=== PATIENT | female | born 1960 | race Caucasian/White ===

== ENCOUNTER 2024-06-11 09:56 | Emergency (ER) | payer MEDICARE, MEDICAID, SELFPAY ==
[2024-06-11 10:18] VITALS: BP 190/97; PULSE 77; RESP 14; TEMP 36.8; O2SAT 100
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
[2024-06-11 10:32] VITALS: BP 190/97; PULSE 77; RESP 14; TEMP 36.8; O2SAT 100
== END 2024-06-11 10:42 | disposition home or self-care (01) ==
PROVIDERS: Emergency Provider Nurse Practitioner Family
DX: L03.114 Cellulitis of left upper limb (principal); I10 Essential (primary) hypertension; Z86.73 Personal history of transient ischemic attack (TIA), and cerebral infarction without residual deficits
CPT/HCPCS: 99213; G0463

== ENCOUNTER 2025-04-15 10:04 | Emergency (ER) | payer MEDICARE, MEDICAID, SELFPAY ==
--- OUTSIDE RECORDS SUMMARY | 2025-04-15 10:09 | XMS_ITS | Encounter Summary ---
Author Organization [facility] Address [address] [facility] [place] [address] Phone Care Team Providers Care Rating Officer Name Role Phone Alejandro Edouard MD Primary Care Provider [phone] Tasha Aranda APRN, STRAIGHTENING PRESS OPERATOR HELPER Unavailable [phone] Aide Andre DO Primary Care Provider [phone] Tasha Aranda APRN, STRAIGHTENING PRESS OPERATOR HELPER Unavailable [phone]- [phone] Cara Royal RN Unavailable Unavailable Simone Blue MD Unavailable Reason for Visit * Reason Comments Medication Refill Encounter Details Date Type Department Care Team (Late st Contact Info) Description 08/14/2021 Refill [facility] - Family Medicine [facility] #2 [place] [address] Alejandro Edouard MD [address] [place] [address] Medication Refill Social History Tobacco Use Types Packs/Day Years Used Date Smoking Tobacco: Never Smokeless Tobacco: Never Alcohol Use Standard Drinks/Week Comments Yes 0 (1 standard drink = 0.6 oz pur e alcohol) weekends, rarely PHQ-2 Answer Date Recorded Total Score - Questions 1-9 0 10/17 Education Answer Date Recorded What is the highest level of school you have completed or the highest degree you have received? Associate degree: occupational, technical, or vocational program 11/07/2020 Sexually Active Control Partners Comments Yes Natural Family Planning Male Comments No Sex and Gender Information Value Date Recorded Sex Assigned at Female 03/20/2024 12:33 AM CDT Legal Sex Female 10:56 PM CDT Gender Identity Female 03/20/2024 12:33 AM CDT Sexual Orientation Not on file Occupation Industry Job Start Date Job End Date disabled Not on file Not on file Not on file documented as of this encounter Miscellaneous Notes * Telephone Encounter - Renetta Conklin RN - 08/15/2021 8:03 AM CST albuterol 108 (90 Base) MCG/ACT Aerosol Solution 18 g 1 08/14/2021 Sig: INHALE 2 PUFFS BY MOUTH EVERY 4 HOURS NEEDED FOR WHEEZING Sent to pharmacy as: Albuterol Sulfate HFA 108 (90 Base) MCG/ACT Inhalation Aerosol Solution (PROVENTIL HFA, VENTOLIN HFA) Class: E Prescribe E-Prescribing Status: Receipt confirmed by pharmacy (08/14/2021 10:36 AM MOTION STUDY TECHNICIAN) Order Questions ?? albuterol 108 (90 Base) MCG/ACT Aerosol Solution [[id number]] 103 Status: Active Ordering user: Alejandro Edouard MD 08/14/211034 Authorized by: Alejandro Edouard MD Frequency: ??08/14/21 - Until Discontinued Released by: Alejandro Edouard MD 08/14/[address] ON STUDY TECHNICIAN documented in this encounter Plan of Treatment Upcoming Encounters Date Type Department Care Team (Late st Contact Info) Description 05/02/2025 11:30 AM CDT [facility] [address]2 [place] [address] Tasha Aranda, SURVEY TECHNICIAN, STRAIGHTENING PRESS OPERATOR HELPER [address] [place] [address] Felicity Boogie MD #[address] [address] 05/05/2025 8:00 AM CDT [facility] 1 [place] [address] Simone Blue MD #[address] [address] 05/05/2025 8:00 AM CDT - 05/05/2025 9:00 AM CDT Surgery [facility] Gi Lab Periop 1 [place] [address] Simone Blue MD #[address] [address] EGD 06/10/2025 8:00 AM CDT Office Visit [facility] - Neurology - [place] [address]2 [place] [address] Tasha Aranda, SURVEY TECHNICIAN, STRAIGHTENING PRESS OPERATOR HELPER [address] [place] [address] 06/17/2025 8:20 AM CDT Office Visit [facility] Medical [facility] - Family Medicine [facility] [address] [place] [address] Aide Andre, DO [address] [address] Scheduled Procedures Name Priority Associated Diagnoses Date/Ti me EGD HISTORY OF PEPTIC ULCER, HISTORY OF HYPERPLASTIC COLON 05/05/2025 8:00 AM CDT COLONOSCOPY HISTORY OF PEPTIC ULCER, HISTORY OF HYPERPLASTIC COLON 05/05/2025 8:00 AM CDT documented as of this encounter Visit Diagnoses Not on filedocumented in this encounter Additional Health Concerns Infection Onset Date Last Indicated Resolved Time COVID - 19 07/15/2022 07/15/2022 07/25/2022 12:1 6 AM MOTION STUDY TECHNICIAN COVID - 19 05/11/2024 05/11/2024 05/11/2024 3:23 PM CDT Respiratory Rule-Out 05/11/2024 05/11/2024 024 3:23 PM CDT Assessment Noted Time PHQ-9 Depression Total Score: 0 11/08/19 21 2:00 PM CDT documented as of this encounter Care Teams Rating Officer Relationship Specialty Start Date End Date Alejandro Edouard MD PCP - General Family Medicine 09/28/18 05/03/24 Aide Andre DO 2 [facility] [address] [place] [address] PCP - General Family Medicine 05/05/24 Tasha Aranda APRN, STRAIGHTENING PRESS OPERATOR HELPER [address] [place] [address] Nurse Practitioner Advanced Practice Nurse 06/19/22 05/03/24 Tasha Aranda APRN, STRAIGHTENING PRESS OPERATOR HELPER [address] [place] [address] Nurse Practitioner Advanced Practice Nurse 05/06/24 Cara Royal, HELEN [place] Registered Nurse 12/13/24 Simone Blue MD #[address] [address] Consulting Physician Colon and Rectal Surgery 01/06/25 documented as of this encounter
--- OUTSIDE RECORDS SUMMARY | 2025-04-15 10:09 | XMS_ITS | Encounter Summary ---
Author Organization [facility] Address [address] [facility] [place] [address] Phone Care Team Providers Care Home Service Consultant Name Role Phone Alejandro Edouard MD Primary Care Provider [phone] Tasha Aranda APRN, MANAGEMENT PSYCHOLOGIST Unavailable [phone] Aide Andre DO Primary Care Provider Tasha Aranda APRN, MANAGEMENT PSYCHOLOGIST Unavailable [phone]- [phone] Cara Royal RN Unavailable Unavailable Simone Blue MD Unavailable Reason for Visit * Reason Comments Medication Refill Encounter Details Date Type Department Care Team (Late st Contact Info) Description 09/06/2021 Refill [facility] Medical [facility] - Family Medicine [facility] #2 [place] [address] Alejandro Edouard MD #1 [place] [address] Medication Refill Social History Tobacco Use Types [...] Telephone Encounter - Renetta Conklin RN - 09/07/2021 7:52 AM CST Medication failed the protocol, provider to review and approve the medication order if appropriate. Requested Prescriptions Pending Prescriptions Disp Refills ibuprofen (MOTRIN) 800 MG Tablet [Pharmacy Med Name: IBUPROFEN 800 MG TABS 800 Tablet] 90 Tablet 3 Sig: TAKE 1 TABLET BY MOUTH EVERY 8 HOURS NSAIDs Protocol Failed - 09/06/2021 3:11 PM Failed - Normal serum creatinine in past 12 months CREATININE, BLOOD Date Value Ref Range Status 05/14/2021 1.19 (H) 0.60 - 1.10 mg/dL Final Passed - Visit with relevant provider in past 12 months or upcoming 90 days Recent Visits Date Type Provider Dept 06/19/21 Office Visit Zhanna Campos APRN, SUPERVISOR REFINING [facility] 05/21/21 Office Visit Alejandro Edouard MD [facility] 12/29/20 Office Visit Alejandro Edouard MD [facility] 11/07/20 Office Visit Alejandro Edouard MD [facility] Showing recent visits within past 365 days and meeting all other requirements Future Appointments Date Type Provider Dept 11/19/21 Appointment Alejandro Edouard MD [facility] Showing future appointments within next 90 days and meeting all other requirements Passed - No matching NSAID med order in past 45 days No matching medication orders between 07/24/2021 7:51 AM and 09/07/2021 7:51 AM Passed - AST less than 55 or ALT less than 90 in past 12 months SGOT (AST) Date Value Ref Range Status 05/14/2021 31 <=32 U/L Final SGPT (ALT) Date Value Ref Range Status 05/14/2021 21 <=41 U/L Final Passed - HGB greater than 10 or HCT greater than 30 in past 12 months HEMOGLOBIN (HGB) Date Value Ref Range Status 05/14/2021 12.6 12.0 - 15.8 g/dL Final HEMATOCRIT (HCT) Date Value Ref Range Status 05/14/2021 37.0 36.0 - 47.0 % Final R SPECIALIST documented in this encounter Plan of Treatment Upcoming Encounters Date Type Department Care Team (Late st Contact Info) Description 05/02/2025 11:30 AM CDT Office Visit [facility] Medical Group - Orthopedic Surgery [facility] #2 [place] [address] Tasha Aranda APRN, MANAGEMENT PSYCHOLOGIST [address] [place] [address] Felicity Boogie MD #[address] [address] 05/05/2025 8:00 AM CDT [facility] 1 [place] [address] Simone Blue MD #[address] [address] 05/05/2025 8:00 AM CDT - 05/05/2025 9:00 AM CDT [facility] [address] [place] [address] Simone Blue MD #[address] [address] EGD 06/10/2025 8:00 AM CDT Office Visit [facility] - Neurology - [place] #2 [facility] [place] [address] Tasha Aranda APRN, MANAGEMENT PSYCHOLOGIST [address] [place] [address] 06/17/2025 8:20 AM CDT Office Visit [facility] - Family Medicine - [place] #[address] [place] [address] Aide Andre DO 2 [facility] [place] [address] Scheduled Procedures Name Priority Associated Diagnoses Date/Ti me EGD HISTORY OF PEPTIC ULCER, HISTORY OF HYPERPLASTIC COLON 05/05/2025 8:00 AM CDT COLONOSCOPY HISTORY OF PEPTIC ULCER, HISTORY OF HYPERPLASTIC COLON 05/05/2025 8:00 AM CDT documented as of this encounter Visit Diagnoses Diagnosis Neck pain, acute Cervicalgia documented in this encounter Additional Health Concerns Infection Onset Date Last Indicated Resolved Time COVID - 19 07/15/2022 07/15/2022 07/25/2022 12:1 6 AM COLOR SPECIALIST COVID - 19 05/11/2024 05/11/2024 05/11/2024 3:23 PM CDT Respiratory Rule-Out 05/11/2024 05/11/2024 024 3:23 PM CDT Assessment Noted Time PHQ-9 Depression Total Score: 0 11/08/19 21 2:00 PM CDT documented as of this encounter Care Teams Home Service Consultant Relationship Specialty Start Date End Date Alejandro Edouard MD PCP - General Family Medicine 09/28/18 05/03/24 Aide Andre DO 2 [facility] [place] [address] PCP - General Family Medicine 05/05/24 Tasha Aranda APRN, MANAGEMENT PSYCHOLOGIST [address] [place] [address] Nurse Practitioner Advanced Practice Nurse 06/19/22 05/03/24 Tasha Aranda APRN, MANAGEMENT PSYCHOLOGIST [address] [place] [address] Nurse Practitioner Advanced Practice Nurse 05/06/24 Caar Royal RN [place] Registered Nurse 12/13/24 Simone Blue MD #[address] [address] Consulting Physician Colon and Rectal Surgery 01/06/25 documented as of this encounter
--- OUTSIDE RECORDS SUMMARY | 2025-04-15 10:09 | XMS_ITS | Encounter Summary ---
Author Organization [facility] Address [address] [facility] [place] [address] Phone Care Team Providers Care Ship Officer Name Role Phone Alejandro Edouard MD Primary Care Provider [phone] Tasha Aranda APRN, TECHNICAL COORDINATOR Unavailable [phone] Aide Andre DO Primary Care Provider Tasha Aranda APRN, TECHNICAL COORDINATOR Unavailable [phone]- [phone] Cara Royal RN Unavailable Unavailable Simone Blue MD Unavailable Reason for Visit * Reason Comments Medication Refill Encounter Details Date Type Department Care Team (Late st Contact Info) Description 11/13/[address] [facility] Medical Group - Family Medicine [facility] #2 [place] [address] Alejandro Edouard MD #1 [place] [address] Medication Refill Social History Tobacco Use Types Packs/Day Years Used Date Smoking Tobacco: Never Smokeless Tobacco: Never Alcohol Use Standard Drinks/Week Comments Yes 0 (1 standard drink = 0.6 oz pur e alcohol) weekends, rarely PHQ-2 Answer Date Recorded Total Score - Questions 1-9 0 08/19 Education Answer Date Recorded What is the [...] Telephone Encounter - Renetta Conklin RN - 11/13/2021 3:29 PM CDT Per nursing clinical judgement, provider to review and approve the medication(s) order(s) if appropriate. Requested Prescriptions Pending Prescriptions Disp Refills fluticasone (FLONASE) 50 MCG/ACT Suspension [Pharmacy Med Name: FLUTICASONE 50MCG NASAL SPR 50 LAUREN]16 g 10 Sig: INSTILL ONE (1) SPRAY IN EACH NOSTRIL DAILY Nasal Steroids Protocol Passed - 11/13/2021 8:57 AM Passed - Visit with relevant provider in past 12 months or upcoming 90 days Recent Visits Date Type Provider Dept 10/01/21 Office Visit Alejandro Edouard MD [facility] 06/19/21 Office Visit Zhanna Campos APRN, BOTTLE MACHINE OPERATOR [facility] 05/21/21 Office Visit Alejandro Edouard MD [facility] 12/29/20 Office Visit Alejandro Edouard MD [facility] Showing recent visits within past 365 days and meeting all other requirements Future Appointments Date Type Provider Dept 11/19/21 Appointment Alejandro Edouard MD [facility] 01/01/22 Appointment Alejandro Edouard MD [facility] Showing future appointments within next 90 days and meeting all other requirements documented in this encounter Plan of Treatment Upcoming Encounters Date Type Department Care Team (Late st Contact Info) Description 05/02/2025 11:30 AM CDT [facility] - [facility]opedic Surgery - [place] #2 [place] [address] Tasha Aranda, MANAGER SOCIAL MEDIA, TECHNICAL COORDINATOR #2 [place] [address] Felicity Boogie MD #[address] [address] 05/05/2025 8:00 AM CDT Hospital Encounter [facility] Gi Lab Periop 1 [place] [address] Simone Blue MD #[address] [address] 05/05/2025 8:00 AM CDT - 05/05/2025 9:00 AM CDT Surgery [facility] Gi Lab Periop 1 [place] [address] Simone Blue MD #[address] [address] EGD 06/10/2025 8:00 AM CDT Office Visit [facility] - Neurology - [place] #2 [place] [address] Tasha Aranda, MANAGER SOCIAL MEDIA, TECHNICAL COORDINATOR #2 [place] [address] 06/17/2025 8:20 AM CDT Office Visit [facility] Medical [facility] - Family Medicine - [place] #2 [place] [address] Aide Andre, DO [address] [address] Scheduled Procedures Name Priority Associated Diagnoses Date/Ti [...] 19 07/15/2022 07/15/2022 07/25/2022 12:1 6 AM ARC TRIMMER COVID - 19 05/11/2024 05/11/2024 05/11/2024 3:23 PM CDT Respiratory Rule-Out 05/11/2024 05/11/2024 024 3:23 PM CDT Assessment Noted Time PHQ-9 Depression Total Score: 0 11/08/19 21 2:00 PM CDT documented as of this encounter Care Teams Ship Officer Relationship Specialty Start Date End Date Alejandro Edouard MD PCP - General Family Medicine 09/28/18 05/03/24 Aide Andre DO [address] [address] PCP - General Family Medicine 05/05/24 Tasha Aranda APRN, TECHNICAL COORDINATOR #[address] [place] [address] Nurse Practitioner Advanced Practice Nurse 06/19/22 05/03/24 Tasha Aranda APRN, TECHNICAL COORDINATOR #[address] [place] [address] Nurse Practitioner Advanced Practice Nurse 05/06/24 Cara Royal, HELEN [place] Registered Nurse 12/13/24 Simone Blue MD [address] [place] [address] Consulting Physician Colon and Rectal Surgery 01/06/25 documented as of this encounter
--- OUTSIDE RECORDS SUMMARY | 2025-04-15 10:09 | XMS_ITS | Encounter Summary ---
Author Organization [facility] Address [address] [facility] [place] [address] Phone Care Team Providers Care Scale Technician Name Role Phone Alejandro Edouard MD Primary Care Provider [phone] Tasha Aranda APRN, PEDIATRIC DIETICIAN Unavailable [phone] Aide Andre DO Primary Care Provider Tasha Aranda APRN, PEDIATRIC DIETICIAN Unavailable [phone] Cara Royal RN Unavailable Unavailable Simone Blue MD Unavailable Reason for Visit * Reason Comments Medication Refill Encounter Details Date Type Department Care Team (Late st Contact Info) Description 10/08/[address] [facility] - Family Medicine [facility] [address] [place] [address] Alejandro Edouard MD [address] [place] [address] Medication Refill Social History Tobacco Use Types [...] file Not on file Not on file COVID-19 Exposure Response Date Recorded In the last month, have you been in contact with someone who was confirmed or suspected to have Coronavirus / COVID-19? No / Unsure 10/10/2021 8:33 AM REGISTERED CLIENT ASSOCIATE documented as of this encounter Miscellaneous Notes * Telephone Encounter - Renetta Conklin RN - 10/09/2021 8:45 AM CST PRN medication requires review from provider Per nursing clinical judgement, provider to review and approve the medication(s) order(s) if appropriate. Requested Prescriptions Pending Prescriptions Disp Refills albuterol 108 (90 Base) MCG/ACT Aerosol Solution [Pharmacy Med Name: ALBUTEROL HFA*VENT* 90MCG 108 (90 BAS Aerosol] 18 g 1 Sig: INHALE TWO (2) PUFFS BY MOUTH EVERY 4 HOURS NEEDED FOR WHEEZING Short Acting Inhaled Beta-Agonists Protocol Passed - 10/08/2021 11:23 AM Passed - Visit with relevant provider in past 12 months or upcoming 90 days Recent Visits Date Type Provider Dept 10/01/21 Office Visit Alejandro Edouard MD [facility] 06/19/21 Office Visit Zhanna Campos APRN, BRIAR SHOP SUPERVISOR [facility] 05/21/21 Office Visit Alejandro Edouard MD [facility] 12/29/20 Office Visit Alejandro Edouard MD [facility] 11/07/20 Office Visit Alejandro Edouard MD [facility] Showing recent visits within past 365 days and meeting all other requirements Future Appointments Date Type Provider Dept 11/19/21 Appointment Alejandro Edouard MD [facility] 01/01/22 Appointment Alejandro Edouard MD [facility] Showing future appointments within next 90 days and meeting all other requirements STERED CLIENT ASSOCIATE documented in this encounter Plan of Treatment Upcoming Encounters Date Type Department Care Team (Late st Contact Info) Description 05/02/2025 11:30 AM CDT Office Visit [facility] - [facility] - [place] [address] [place] [address] Tasha Aranda APRN, PEDIATRIC DIETICIAN [address] [place] [address] Felicity Boogie MD #[address] [address] 05/05/2025 8:00 AM CDT [facility] [address] [place] [address] Simone Blue MD #[address] [address] 05/05/2025 8:00 AM CDT - 05/05/2025 9:00 AM CDT Surgery [facility] Periop 1 [place] [address] Simone Blue MD #[address] [address] EGD 06/10/2025 8:00 AM CDT Office Visit [facility] - [place] [address] [place] [address] Tasha Aranda APRN, PEDIATRIC DIETICIAN [address] [place] [address] 06/17/2025 8:20 AM CDT Office Visit [facility] [address] [place] [address] Aide Andre DO [address] [address] Scheduled Procedures Name Priority Associated Diagnoses Date/Ti [...] 19 07/15/2022 07/15/2022 07/25/2022 12:1 6 AM REGISTERED CLIENT ASSOCIATE COVID - 19 05/11/2024 05/11/2024 05/11/2024 3:23 PM CDT Respiratory Rule-Out 05/11/2024 05/11/2024 024 3:23 PM CDT Assessment Noted Time PHQ-9 Depression Total Score: 0 11/08/19 21 2:00 PM CDT documented as of this encounter Care Teams Scale Technician Relationship Specialty Start Date End Date Alejandro Edouard MD PCP - General Family Medicine 09/28/18 05/03/24 Aide Andre DO [address] [address] PCP - General Family Medicine 05/05/24 Tasha Aranda APRN, PEDIATRIC DIETICIAN [address] [place] [address] Nurse Practitioner Advanced Practice Nurse 06/19/22 05/03/24 Tasha Aranda APRN, PEDIATRIC DIETICIAN [address] [place] [address] Nurse Practitioner Advanced Practice Nurse 05/06/24 Cara Royal, RN [place] Registered Nurse 12/13/24 Simone Blue MD #[address] [address] Consulting Physician Colon and Rectal Surgery 01/06/25 documented as of this encounter
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
[2025-04-15 10:10] VITALS: BP 133/70; PULSE 70; RESP 16; TEMP 36.6; O2SAT 100
--- OUTSIDE RECORDS SUMMARY | 2025-04-15 10:10 | XMS_ITS | Clinical Summary ---
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 PRE-ARREST: Use entire range of life support measures to stabilize the patient. * Full Code Date Activated Date Inactivated Comments 02/04/2023 1:48 PM 02/05/2023 9:04 PM CPR-Full Milad atment: FULL ARREST: Attempt Resuscitation/CPR wit intubation and mechanical ventilation. PRE-ARREST: Use entire range of life support measures to stabilize the patient. * Full Code Date Activated Date Inactivated Comments 09/15/2021 5:02 PM 09/18/2021 3:05 PM CPR-Full Rachel tment: FULL ARREST: Attempt Resuscitation/CPR wit intubation and mechanical ventilation. PRE-ARREST: Use entire range of life support measures to stabilize the patient. * Full Code Date Activated Date Inactivated Comments 07/07/2019 9:12 AM 09/15/2020 11:00 AM Care Teams Welt Sewer Relationship Specialty Start Date End Date Aide Andre DO [address] [facility] [address], [place]. [address] [place] [address] PCP - General Family Medicine 05/05/24 Tasah Aranda APRN, MANUFACTURING MECHANIC [address]2 [place] [address] Nurse Practitioner Advanced Practice Nurse 05/06/24 Cara Royal, [place] Registered Nurse 12/13/24 Simone Blue MD #[address] [address] Consulting Physician Colon and Rectal Surgery 01/06/25
--- OUTSIDE RECORDS SUMMARY | 2025-04-15 10:10 | XMS_ITS | Encounter Summary ---
Author Organization [facility] Address [address] [facility] [place] [address] Phone Care Team Providers Care Paving Block Cutter Name Role Phone Alejandro Edouard MD Primary Care Provider [phone] Tasha Aranda APRN, IMMIGRATION MANAGER Unavailable [phone]- [phone] Aide Andre DO Primary Care Provider Tasha Aranda APRN, IMMIGRATION MANAGER Unavailable [phone]- [phone] Cara Royal RN Unavailable Unavailable Simone Blue MD Unavailable Reason for Visit * Reason Comments Medication Refill Encounter Details Date Type Department Care Team (Late st Contact Info) Description 08/28/2020 [facility]ill [facility] [address] [place] [address] Alejandro Edouard MD [address] [place] [address] Medication Refill Social History Tobacco Use Types Packs/Day Years Used Date Smoking Tobacco: Never Smokeless Tobacco: Never Alcohol Use Standard Drinks/Week Comments Yes 0 (1 standard drink = 0.6 oz pur e alcohol) weekends, rarely PHQ-2 Answer Date Recorded PHQ-2 Score 0 09/22/2019 Education Answer Date Recorded What is the highest level of school you have completed or the highest degree you have received? GED or equivalent Sexually Active Control Partners Comments Yes Natural [...] have Coronavirus / COVID-19? No / Unsure 08/28/2020 9:12 AM COLLECT ON DELIVERY CLERK documented as of this encounter Miscellaneous Notes * Telephone Encounter - Stephanie Leyva RN - 08/28/2020 3:32 PM CST Duplicate ECT ON DELIVERY CLERK documented in this encounter Plan of Treatment Upcoming Encounters Date Type Department Care Team (Late st Contact Info) Description 05/02/2025 11:30 AM CDT Office Visit [facility] Medical Group - Orthopedic Surgery [facility] #[address] [place] [address] Tasha Aranda APRN, IMMIGRATION MANAGER #2 [place] [address] Felicity Boogie MD #[address] [address] 05/05/2025 8:00 AM CDT Hospital [facility] Periop 1 [place] [address] Simone Blue MD #[address] [address] 05/05/2025 8:00 AM CDT - 05/05/2025 9:00 AM CDT Surgery [facility] Periop 1 [place] [phone] Simone Blue MD #2 [facility] [address] [place] [address] EGD 06/10/2025 8:00 AM CDT Office Visit [facility] - Neurology - [place] [address] [place] [address] Tasha Aranda, AIR QUALITY CHEMIST, IMMIGRATION MANAGER #2 [place] [address] 06/17/2025 8:20 AM CDT Office Visit [facility] Family Medicine - [place] #[address] [place] [address] Aide Andre, DO 2 [facility]. [address] [place] [address] Scheduled Procedures Name Priority Associated Diagnoses Date/Ti me EGD HISTORY OF PEPTIC ULCER, HISTORY OF HYPERPLASTIC COLON 05/05/2025 8:00 AM CDT COLONOSCOPY HISTORY OF PEPTIC ULCER, HISTORY OF HYPERPLASTIC COLON 05/05/2025 8:00 AM CDT documented as of this encounter Visit Diagnoses Not on filedocumented in this encounter Additional Health Concerns Infection Onset Date Last Indicated Resolved Time COVID - 19 06/19/2021 06/19/2021 07/09/2021 12:1 6 AM COLLECT ON DELIVERY CLERK COVID - 19 07/15/2022 07/15/2022 07/25/2022 12:1 6 AM COLLECT ON DELIVERY CLERK COVID - 19 05/11/2024 05/11/2024 05/11/2024 3:23 PM CDT Respiratory Rule-Out 05/11/2024 05/11/2024 024 3:23 PM CDT Assessment Noted Time PHQ-9 Depression Total Score: 0 09/22/19 8:00 AM COLLECT ON DELIVERY CLERK documented as of this encounter Care Teams Paving Block Cutter Relationship Specialty Start Date End Date Alejandro Edouard MD PCP - General Family Medicine 09/28/18 05/03/24 Aide Andre DO [address] [address] PCP - General Family Medicine 05/05/24 Tasha Aranda APRN, IMMIGRATION MANAGER #2 [place] [address] Nurse Practitioner Advanced Practice Nurse 06/19/22 05/03/24 Tasha Aranda APRN, IMMIGRATION MANAGER [address] [place] [address] Nurse Practitioner Advanced Practice Nurse 05/06/24 Cara Royal, [place] Registered Nurse 12/13/24 Simone Blue MD #[address] [address] Consulting Physician Colon and Rectal Surgery 01/06/25 documented as of this encounter
--- OUTSIDE RECORDS SUMMARY | 2025-04-15 10:10 | XMS_ITS | Encounter Summary ---
Author Organization [facility] Address [address] [facility] [place] [address] Phone Care Team Providers Care Forestry Worker Name Role Phone Alejandro Edouard MD Primary Care Provider [phone] Tasha Aranda APRN, WASHCOAT WIPER Unavailable [phone] Aide Andre DO Primary Care Provider [phone] Tasha Aranda APRN, WASHCOAT WIPER Unavailable +- [phone] Cara Royal RN Unavailable Unavailable Simone Blue MD Unavailable Reason for Visit * Reason Comments Medication Refill Encounter Details Date Type Department Care Team (Late st Contact Info) Description 08/10/2021 Refill [facility] Medical Group - Family Medicine [facility] #2 [place] [address] Alejandro Edouard MD #1 [place] [address] Medication Refill Social History Tobacco Use Types [...] Telephone Encounter - Renetta Conklin RN - 08/13/2021 9:53 AM CST PRN medication requires review from provider Per nursing clinical judgement, provider to review and approve the medication(s) order(s) if appropriate. Requested Prescriptions Pending Prescriptions Disp Refills albuterol 108 (90 Base) MCG/ACT Aerosol Solution [Pharmacy Med Name: ALBUTEROL HFA*VENT* 90MCG 108 (90 BAS Aerosol] 18 g 1 Sig: INHALE 2 PUFFS BY MOUTH EVERY 4 HOURS NEEDED FOR WHEEZING Short Acting Inhaled Beta-Agonists Protocol Passed - 08/10/2021 9:37 AM Passed - Visit with relevant provider in past 12 months or upcoming 90 days Recent Visits Date Type Provider Dept 06/19/21 Office Visit Zhanna Campos APRN, [facility] [address] [place] 05/21/21 Office Visit Alejandro Edouard MD [facility] 12/29/20 Office Visit Alejandro Edouard MD [facility] 11/07/20 Office Visit [facility] Show[facility] recent visits within past 365 days and meeting all other requirements Future Appointments No visits were found meeting these conditions. Showing future appointments within next 90 days and meeting all other requirements SOLDER OFFBEARER documented in this encounter Plan of Treatment Upcoming Encounters Date Type Department Care Team (Late st Contact Info) Description 05/02/2025 11:30 AM CDT Office Visit [facility] Medical Group - Orthopedic Surgery - [place] [address] [place] [address] Tasha Aranda APRN, WASHCOAT WIPER [address] [place] [address] Felicity Boogie MD #[address] [address] 05/05/2025 8:00 AM CDT [facility] 1 [place] [address] Simone Blue MD #[address] [address] 05/05/2025 8:00 AM CDT - 05/05/2025 9:00 AM CDT Surgery [facility] Gi Lab Periop 1 [place] [address] Simone Blue MD #[address] [address] EGD 06/10/2025 8:00 AM CDT Office Visit [facility] - Neurology - [place] #[address] [place] [address] Tasha Aranda, BIOLOGY SPECIALIST, WASHCOAT WIPER [address] [place] [address] 06/17/2025 8:20 AM CDT Office Visit [facility] Medical [facility] - Family Medicine - [place] #2 [place] [address] Aide Andre, DO [address] [address] Scheduled Procedures Name Priority Associated Diagnoses Date/Ti [...] 19 07/15/2022 07/15/2022 07/25/2022 12:1 6 AM WAVE SOLDER OFFBEARER COVID - 19 05/11/2024 05/11/2024 05/11/2024 3:23 PM CDT Respiratory Rule-Out 05/11/2024 05/11/2024 024 3:23 PM CDT Assessment Noted Time PHQ-9 Depression Total Score: 0 11/08/19 21 2:00 PM CDT documented as of this encounter Care Teams Forestry Worker Relationship Specialty Start Date End Date Alejandro Edouard MD PCP - General Family Medicine 09/28/18 05/03/24 Aide Andre DO 2 [facility] [address] [place] [address] PCP - General Family Medicine 05/05/24 Tasha Aranda APRN, WASHCOAT WIPER #[address] [place] [address] Nurse Practitioner Advanced Practice Nurse 06/19/22 05/03/24 Tasha Aranda APRN, WASHCOAT WIPER [address] [place] [address] Nurse Practitioner Advanced Practice Nurse 05/06/24 Caar Royal, [place]EN [place] Registered Nurse 12/13/24 Simone Blue MD #[address] [address] Consulting Physician Colon and Rectal Surgery 01/06/25 documented as of this encounter
--- OUTSIDE RECORDS SUMMARY | 2025-04-15 10:10 | XMS_ITS | Encounter Summary ---
Author Organization [facility] Address [address] [facility] [place] [address] Care Team Providers Care Mixing Machine Feeder Name Role Phone Alejandro Edouard MD Primary Care Provider [phone] Encounter Details Date Type Department Care Team (Late st Contact Info) Description 02/13/2023 Telephone [facility] INTERNAL MED [address] [place] [phone] Michael Grier MD [address] [place] [id number] Social History Tobacco Use Types Packs/Day Years Used Date Smoking Tobacco: Never Smokeless Tobacco: Never Alcohol Use Standard Drinks/Week Comments Yes 0 (1 standard drink = 0.6 oz pur e alcohol) occ AUDIT-C Answer Date Recorded Q1: How often do you have a drink containing alc ohol? 2-4 times a month 02/14/2023 Q2: How many drinks containi ng alcohol do you have on a typical day when you are drinking? 3 or 4 02/14/2023 Q3: How often do you have si x or more drinks on one occasion? Never 02/14/2023 Overall Financial Resource Strain (CARDIA) Answe r Date Recorded How hard is it for you to pa y for the very basics like food, housing, medical care, and heating? Not hard at all 02/14/2023 [facility] [place] of Occupat ional Health - Occupational Stress Questionnaire Answer Date Recorded Do you feel stress - tense, restless, nervous, or anxious, or unable to sleep at night because your mind is troubled all the time - these days? Not at all 02/14/2023 Hunger Vital Sign Answer Date Recorded Within the past 12 months, y ou worried that your food would run out before you got the money to buy more. Never true 02/15/20 23 Within the past 12 months, t he food you bought just didn't last and you didn't have money to get more. Never true 02/14/2023 PRAPARE - Transportation Answer Date Re corded In the past 12 months, has l ack of transportation kept you from medical appointments or from getting medications? No 01/18 In the past 12 months, has l ack of transportation kept you from meetings, work, or from getting things needed for daily living? No 02/14/2023 Housing Stability Vital Sign Answer Clive e Recorded In the last 12 months, was t here a time when you were not able to pay the mortgage or rent on time? No 02/14/2023 In the last 12 months, how many places have you lived? 1 02/14/2023 In the last 12 months, was t here a time when you did not have a steady place to sleep or slept in a care home (including now)? No 02/14/2023 Comments No Sex and Gender Information Value Date Recorded Sex Assigned at Not on file Legal Sex Female 10:30 AM CDT Gender Identity Not on file Sexual Orientation Not on file documented as of this encounter Functional Status * Question Answer Date of Assessment Author Q1: How often do you have a drink containing alcohol? 2-4 times a month 02/14/2023 8:53 PM Kamala Storm RN Q2: How many drinks containing alcohol do you have on a typical day when you are drinking? 3 or 4 02/14/2023 8:53 PM Kamala Storm RN Q3: How often do you have six or more drinks on one occasion? Never 02/14/2023 8:53 PM Kamala Storm RN * Audit-C Score Answer Date of Assessment Author 3 02/14/2023 8:53 PM Kamala Storm RN documented as of this encounter Miscellaneous Notes * Telephone Encounter - Michael Grier MD - 02/13/2023 6:40 PM CDT [facility] Outside Hospital Transfer Call Documentation Date:02/13/2023 Time:6:40 PM Patient: Linda Snider : 1960 Referring [facility] Name: [facility] Reason for Transfer: Sepsis with CBD dilatation and pancreatitis. Brief Description (including applicable labs, imaging, consultations): 62yo female presented with epigastric pain with elevated lactic acid, elevated WBC and LFTs and lowMg. CT showed CBD dilation with pancreatitis. 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 Need EUS. Patient needs on arrival to [facility]: Medicine admissions resident (ask sawmill equipment operator for Medicine Admission) to be notified of arrival. Consultation to (N/A if blank): Biliary GI I have accepted this patient for transfer to [facility]. If patient awaiting bed for >24hours, an update on patient's clinical condition is requested. Signed:Michael Grier MD 02/13/2023 documented in this encounter Plan of Treatment Not on file documented as of this encounter Goals Goal Patient Goal Type Associated Problems Recent Progress Patient-Stated? Author Mobility General No change( 020 8:56 AM CDT) No Zoë Angeles RN Note: Expected end date:05/17/2020 The goal is to maintain or improve your mobility at the optimum level for you. Interventions: documented as of this encounter Visit Diagnoses Not on filedocumented in this encounter Care Teams Mixing Machine Feeder Relationship Specialty Start Date End Date Alejandro Edouard MD PCP - General 12/01/18 documented as of this encounter
--- OUTSIDE RECORDS SUMMARY | 2025-04-15 10:10 | XMS_ITS | Encounter Summary ---
Author Organization [facility] Address [address] [facility] [place] [address] Phone Care Team Providers Care Business Process Lead Name Role Phone Alejandro Edouard MD Primary Care Provider [phone] Tasha Aranda APRN, MANAGER LABOR DELIVERY Unavailable [phone] Aide Andre DO Primary Care Provider Tasha Aranda APRN, MANAGER LABOR DELIVERY Unavailable [phone]- [phone] Cara Royal RN Unavailable Unavailable Simone Blue MD Unavailable Reason for Visit * Reason Comments Medication Refill Encounter Details Date Type Department Care Team (Late st Contact Info) Description 12/13/2021 Refill [facility] Medical [facility] - Family Medicine [facility] #2 [place] [address] Alejandro Edouard MD #1 [place] [address] Medication Refill Social History Tobacco Use Types [...] Exposure Response Date Recorded In the last 10 days, have yo u been in contact with someone who was confirmed or suspected to have Coronavirus/COVID-19? No / Unsure 11/18/2021 9:29 AM CDT documented as of this encounter Miscellaneous Notes * Telephone Encounter - Renetta Conklin RN - 12/13/2021 1:26 PM CDT PRN medication requires review from provider Per [...] Short Acting Inhaled Beta-Agonists Protocol Passed - 12/13/2021 8:47 AM Passed - Visit with relevant provider in past 12 months or upcoming 90 days Recent Visits Date Type Provider Dept 11/19/21 Office Visit Alejandro Edouard MD [facility] 10/01/21 Office Visit Alejandro Edouard MD [facility] 06/19/21 Office Visit Zhanna Campos APRN, TEAROOM HOST [facility] 05/21/21 Office Visit Alejandro Edouard MD [...] Description 05/02/2025 11:30 AM CDT Office Visit [facility] - Orthopedic Surgery - [place] #2 [place] [address] Tasha Aranda DOOR CLAMP OPERATOR, MANAGER LABOR DELIVERY #2 [place] [address] Felicity Boogie MD #[address] [address] 05/05/2025 8:00 AM CDT Hospital Encounter [facility] Gi Lab Periop 1 [place] [address] Simone Blue MD #[address] [address] 05/05/2025 8:00 AM CDT - 05/05/2025 9:00 AM CDT Surgery [facility] Gi Lab Periop 1 [place] [address] Simone Blue MD #[address] [address] EGD 06/10/2025 8:00 AM CDT Office Visit [facility] - Neurology - [place] #2 [place] [address] Tasha Aranda DOOR CLAMP OPERATOR, MANAGER LABOR DELIVERY #2 [place] [address] 06/17/2025 8:20 AM CDT Office Visit [facility] - Family Medicine - [place] #2 [place] [address] Aide Andre DO 2 [facility] MICHAEL [facility] [place] [address] Scheduled Procedures Name Priority Associated Diagnoses Date/Ti [...] 19 07/15/2022 07/15/2022 07/25/2022 12:1 6 AM COUNT TEAM CLERK COVID - 19 05/11/2024 05/11/2024 05/11/2024 3:23 PM CDT Respiratory Rule-Out 05/11/2024 05/11/2024 024 3:23 PM CDT Assessment Noted Time PHQ-9 Depression Total Score: 0 11/08/19 21 2:00 PM CDT documented as of this encounter Care Teams Business Process Lead Relationship Specialty Start Date End Date Alejandro Edouard MD PCP - General Family Medicine 09/28/18 05/03/24 Aide Andre DO 2 [facility] [address]EL [facility] [place] [address] PCP - General Family Medicine 05/05/24 Tasha Aranda APRN, MANAGER LABOR DELIVERY #2 [place] [address] Nurse Practitioner Advanced Practice Nurse 06/19/22 05/03/24 Tasha Aranda APRN, MANAGER LABOR DELIVERY #2 [place] [address] Nurse Practitioner Advanced Practice Nurse 05/06/24 Cara Royal RN [place] Registered Nurse 12/13/24 Simone Blue MD #[address] [address] Consulting Physician Colon and Rectal Surgery 01/06/25 documented as of this encounter
--- OUTSIDE RECORDS SUMMARY | 2025-04-15 10:10 | XMS_ITS | Encounter Summary ---
Author Organization [facility] Address [address] [facility] [place] [address] Phone Care Team Providers Care Gas Compressor Turbine Operator Name Role Phone Alejandro Edouard MD Primary Care Provider [phone] Tasha Aranda APRN, LEGAL STENOGRAPHER Unavailable [phone] Aide Andre DO Primary Care Provider [phone] Tasha Aranda APRN, LEGAL STENOGRAPHER Unavailable [phone]- [phone] Cara Royal RN Unavailable Unavailable Simone Blue MD Unavailable Reason for Visit * Reason Comments Medication Refill Encounter Details Date Type Department Care Team (Late st Contact Info) Description 01/08/[address] [facility] - Family Medicine [facility] [address] [place] [address] Alejandro Edouard MD [address] [place] [address] Medication Refill Social History Tobacco Use Types [...] have Coronavirus / COVID-19? No / Unsure 12/29/2020 9:37 AM CDT documented as of this encounter Miscellaneous Notes * Telephone Encounter - Renetta Conklin RN - 01/08/2021 1:50 PM CDT Per nursing clinical judgement, provider to review and approve the medication(s) order(s) if appropriate. Requested Prescriptions Pending Prescriptions Disp Refills ibuprofen (MOTRIN) 800 MG Tablet [Pharmacy Med Name: IBUPROFEN 800 MG TABS 800 Tablet] 90 Tablet Sig: TAKE 1 TABLET BY MOUTH EVERY 8 HOURS [email or web address] Analgesics: NSAIDS - OTC Passed - 01/08/2021 8:15 AM Passed - Valid encounter within last 12 months Past Office Visits Recent Outpatient Visits 1 week ago Acute non-recurrent frontal sinusitis [facility] - Alejandro Mitchell MD 2 months ago Acute non-recurrent maxillary sinusitis [facility] - Alejandro Mitchell MD 6 months ago Preop general physical exam [facility] - Alejandro Mitchell MD 1 year ago Fever, unspecified fever cause [facility] - Falguni Arce PAC 1 year ago Neck pain, acute [facility] Alejandro Wayne MD Upcoming Appointments Future Appointments In 1 month Tasha Aranda, AIRLINE MANAGERIAL SUPERVISOR, LEGAL STENOGRAPHER [facility] - YASIR Russell TELEVISION PRODUCTION TECHNICIAN - Recent and Past Visits Recent Visits Date Type Provider Dept 12/29/20 Office Visit Alejandro Edouard MD [facility] 11/07/20 Office Visit Alejandro Edouard MD [facility] 07/07/20 Office Visit [facility] Showing recent visits within past 460 days with a meds authorizing provider and meeting all other requirements Future Appointments No visits were found meeting these conditions. Showing future appointments within next 90 days with a meds authorizing provider and meeting all other requirements documented in this encounter Plan of Treatment Upcoming Encounters Date Type Department Care Team (Late st Contact Info) Description 05/02/2025 11:30 AM CDT Office Visit [facility] - Orthopedic Surgery [facility] [address] [place] [address] Tasha Aranda APRN, LEGAL STENOGRAPHER [address] [place] [address] Felicity Boogie MD #[address] [address] 05/05/2025 8:00 AM CDT Hospital Encounter [facility] Periop [address] [place] [address] Simone Blue MD [address] [address] 05/05/2025 8:00 AM CDT - 05/05/2025 9:00 AM CDT [facility] [address] [place] [address] Simone Blue MD #[address] [address] EGD 06/10/2025 8:00 AM CDT Office Visit [facility] - [facility]rology - [place] [address] [facility] [place] [address] Tasha Aranda APRN, LEGAL STENOGRAPHER [address] [place] [address] 06/17/2025 8:20 AM CDT Office Visit [facility] Medical [facility] - Family Medicine - [place] [address] [place] [address] Aide Andre DO 2 [facility] [place] [address] [place] [address] Scheduled Procedures Name Priority Associated Diagnoses Date/Ti [...] 19 06/19/2021 06/19/2021 07/09/2021 12:1 6 AM ADULT BASIC EDUCATION TEACHER COVID - 19 07/15/2022 07/15/2022 07/25/2022 12:1 6 AM ADULT BASIC EDUCATION TEACHER COVID - 19 05/11/2024 05/11/2024 05/11/2024 3:23 PM CDT Respiratory Rule-Out 05/11/2024 05/11/2024 024 3:23 PM CDT Assessment Noted Time PHQ-9 Depression Total Score: 0 11/08/19 21 2:00 PM CDT documented as of this encounter Care Teams Gas Compressor Turbine Operator Relationship Specialty Start Date End Date Alejandro Edouard MD PCP - General Family Medicine 09/28/18 05/03/24 Aide Andre DO [address] [facility] [place] [address] [place] [address] PCP - General Family Medicine 05/05/24 Tasha Aranda APRN, LEGAL STENOGRAPHER [address] [place] [address] Nurse Practitioner Advanced Practice Nurse 06/19/22 05/03/24 Tasha Aranda APRN, LEGAL STENOGRAPHER [address] [place] [address] Nurse Practitioner Advanced Practice Nurse 05/06/24 Cara Royal RN [place] Registered Nurse 12/13/24 Simone Blue MD #[address] [address] Consulting Physician Colon and Rectal Surgery 01/06/25 documented as of this encounter
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
--- OUTSIDE RECORDS SUMMARY | 2025-04-15 10:10 | XMS_ITS | Encounter Summary ---
Author Organization [facility] Address [address] [facility] [place] [address] Phone Care Team Providers Care Irrigation Teacher Name Role Phone Alejandro Edouard MD Primary Care Provider [phone] Tasha Aranda APRN, RETAIL SALES SPECIALIST Unavailable [phone] Aide Andre DO Primary Care Provider [phone] Tasha Aranda APRN, RETAIL SALES SPECIALIST Unavailable [phone]- [phone] Cara Royal RN Unavailable Unavailable Simone Blue MD Unavailable Reason for Visit * Reason Comments Medication Refill Encounter Details Date Type Department Care Team (Late st Contact Info) Description 12/23/2022 Refill [facility] - Family Medicine [facility] #2 [place] [address] Emilio Torres MD #[address] [address] Medication Refill Social History Tobacco Use Types Packs/Day Years Used Date Smoking Tobacco: Never Smokeless Tobacco: Never Alcohol Use Standard Drinks/Week Comments Yes 0 (1 standard drink = 0.6 oz pur e alcohol) weekends, rarely PHQ-2 Answer Date Recorded Total Score - Questions 1-9 0 06/19 Education Answer Date Recorded What is the [...] Telephone Encounter - Renetta Conklin RN - 12/24/2022 11:14 AM CDT PRN medication requires review from provider Per nursing clinical judgement, provider to review and approve the medication(s) order(s) if appropriate. Requested Prescriptions Pending Prescriptions Disp Refills ibuprofen (MOTRIN) 800 MG Tablet [Pharmacy Med Name: IBUPROFEN 800 MG TABS 800 Tablet] 90 Tablet 3 Sig: TAKE 1 TABLET BY MOUTH EVERY 8 HOURS NEEDED FOR MODERATE OR MORE SEVERE PAIN NSAIDs Protocol Passed - 12/23/2022 5:10 PM Passed - Normal serum creatinine in past 12 months CREATININE, BLOOD Date Value Ref Range Status 05/28/2022 0.95 0.60 - 1.10 mg/dL Final Passed - Visit with relevant provider in past 12 months or upcoming 90 days Recent Visits Date Type Provider Dept 11/05/22 Office Visit Zhanna Campos APRN, CHRISTIAN [facility] [place] 07/15/22 Office Visit Umm Pascal APRN, PILOT SUBMERSIBLE [facility] [place] 05/21/22 Office Visit [facility] Show[facility] recent visits within past 365 days and meeting all other requirements Future Appointments No visits were found meeting these conditions. Showing future appointments within next 90 days and meeting all other requirements Passed - No matching NSAID med order in past 45 days No matching medication orders between 11/09/2022 11:14 AM and 12/24/2022 11:14 AM Passed - AST less than 55 or ALT less than 90 in past 12 months SGOT (AST) Date Value Ref Range Status 05/28/2022 39 (H) <=32 U/L Final SGPT (ALT) Date Value Ref Range Status 05/28/2022 25 <=41 U/L Final Passed - HGB greater than 10 or HCT greater than 30 in past 12 months HEMOGLOBIN (HGB) Date Value Ref Range Status 05/28/2022 13.3 12.0 - 15.8 g/dL Final HEMATOCRIT (HCT) Date Value Ref Range Status 05/28/2022 39.4 36.0 - 47.0 % Final documented in this encounter Plan of Treatment Upcoming Encounters Date Type Department Care Team (Late st Contact Info) Description 05/02/2025 11:30 AM CDT Office Visit [facility] - Orthopedic Surgery - [place] [address]2 [place] [address] Tasha Aranda APRN, RETAIL SALES SPECIALIST [address]2 [place] [address] Felicity Boogie MD #[address] [address] 05/05/2025 8:00 AM CDT Hospital Encounter [facility] Periop 1 [place] [address] Simone Blue MD #[address] [address] 05/05/2025 8:00 AM CDT - 05/05/2025 9:00 AM CDT Surgery [facility] Periop 1 [place] [address] Simone Blue MD #[address] [address] EGD 06/10/2025 8:00 AM CDT Office Visit [facility] - Neurology - [place] #2 [place] [address] Tasha Aranda APRN, RETAIL SALES SPECIALIST #2 [place] [address] 06/17/2025 8:20 AM CDT [facility] #2 [place] [address] Aide Andre DO [address] [address] Scheduled Procedures Name Priority Associated Diagnoses Date/Ti me EGD HISTORY OF PEPTIC ULCER, HISTORY OF HYPERPLASTIC COLON 05/05/2025 8:00 AM CDT COLONOSCOPY HISTORY OF PEPTIC ULCER, HISTORY OF HYPERPLASTIC COLON 05/05/2025 8:00 AM CDT documented as of this encounter Visit Diagnoses Diagnosis Neck pain, acute Cervicalgia documented in this encounter Additional Health Concerns Infection Onset Date Last Indicated Resolved Time COVID - 19 05/11/2024 05/11/2024 05/11/2024 3:23 PM CDT Respiratory Rule-Out 05/11/2024 05/11/2024 024 3:23 PM CDT Assessment Noted Time PHQ-9 Depression Total Score: 0 07/15/20 22 1: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 documented as of this encounter Care Teams Irrigation Teacher Relationship Specialty Start Date End Date Alejandro Edouard MD PCP - General Family Medicine 09/28/18 05/03/24 Aide Andre DO [address] [address] PCP - General Family Medicine 05/05/24 Tasha Aranda APRN, RETAIL SALES SPECIALIST #2 [place] [address] Nurse Practitioner Advanced Practice Nurse 06/19/22 05/03/24 Tasha Aranda APRN, RETAIL SALES SPECIALIST #2 [place] [address] Nurse Practitioner Advanced Practice Nurse 05/06/24 Cara Royal RN [place] Registered Nurse 12/13/24 Simone Blue MD #[address] [address] Consulting Physician Colon and Rectal Surgery 01/06/25 documented as of this encounter
--- OUTSIDE RECORDS SUMMARY | 2025-04-15 10:10 | XMS_ITS | Encounter Summary ---
Author Organization [facility] Address [address] [place] [address] Phone Care Team Providers Care Private Branch Exchange Operator Name Role Phone Alejandro Edouard MD Primary Care Provider [phone] Tasha Aranda APRN, ZONING ENGINEER Unavailable [phone] Aide Andre DO Primary Care Provider [phone] Tasha Aranda APRN, ZONING ENGINEER Unavailable [phone]- [phone] Cara Royal RN Unavailable Unavailable Simone Blue MD Unavailable Reason for Visit * Reason Comments Medication Refill Encounter Details Date Type Department Care Team (Late st Contact Info) Description 08/09/2021 Refill [facility] [address] [place] [address] Alejandro Edouard MD [address] [place] [address] Medication Refill Social History Tobacco Use Types [...] Telephone Encounter - Renetta Conklin RN - 08/09/2021 3:40 PM CST Medication failed the protocol, provider to review and approve the medication order if appropriate. Requested Prescriptions Pending Prescriptions Disp Refills atorvastatin (LIPITOR) 80 MG Tablet [Pharmacy Med Name: ATORVASTATIN 80 MG TABLET 80 Tablet] 30 Tablet 3 Sig: TAKE 1 TABLET BY MOUTH EVERY DAY Hmg CoA Reductase Inhibitors Protocol Passed - 08/09/2021 2:21 PM Passed - Visit with relevant provider in past 12 months or upcoming 90 days Recent Visits Date Type Provider Dept 06/19/21 Office Visit Zhanna Campos APRN, ENTRY LEVEL PROJECT ENGINEER [facility] 05/21/21 Office Visit Alejandro Edouard MD [facility] 12/29/20 Office Visit Alejandro Edouard MD [facility] 11/07/20 Office Visit Alejandro Edouard MD [facility] Showing recent visits within past 365 days and meeting all other requirements Future Appointments No visits were found meeting these conditions. Showing future appointments within next 90 days and meeting all other requirements Passed - Lipid panel in past 12 months LDL Date Value Ref Range Status 02/28/2021 Final Comment: Unable to calculate LDL when Triglycerides are greater than 400. Direct measurement of LDL is available upon request as a separate test. HDL CHOLESTEROL Date Value Ref Range Status 02/28/2021 44.5 >40 mg/dL Final CHOLESTEROL Date Value Ref Range Status 02/28/2021 229 (H) <=200 mg/dL Final TRIGLYCERIDES Date Value Ref Range Status 02/28/2021 425 (H) <150 mg/dL Final VLDL Date Value Ref Range Status 02/28/2021 Final Comment: Cannot be calculated due to Hypertriglyceridemia. CHOL/HDL RATIO Date Value Ref Range Status 02/28/2021 5.1 (H) 0.0 - 4.4 Final NON-HDL CHOLESTEROL Date Value Ref Range Status 02/28/2021 184.5 (H) <130 mg/dL Final omeprazole (PriLOSEC) 20 MG CAPSULE DELAYED RELEASE [Pharmacy Med Name: OMEPRAZOLE DR 20MG CAP 20 Capsule] 30 Capsule 3 Sig: TAKE 1 CAPSULE BY MOUTH EVERY DAY Proton Pump Inhibitors Protocol Passed - 08/09/2021 2:21 PM Passed - Visit with relevant provider in past 12 months or upcoming 90 days Recent Visits Date Type Provider Dept 06/19/21 Office Visit Zhanna Campos APRN, CHRISTIAN [facility] 05/21/21 Office Visit Alejandro Edouard MD [facility] 12/29/20 Office Visit Alejandro Edouard MD [facility] 11/07/20 Office Visit Alejandro Edouard MD [facility] Showing recent visits within past 365 days and meeting all other requirements Future Appointments No visits were found meeting these conditions. Showing future appointments within next 90 days and meeting all other requirements metoprolol Succinate (TOPROL-XL) 25 MG TABLET SR 24 HR [Pharmacy Med Name: METOPROLOL SUCC ER 25MG 25 Tablet] 30 Tablet 3 Sig: TAKE 1 TABLET BY MOUTH EVERY DAY Beta-Blockers Protocol Passed - 08/09/2021 2:21 PM Passed - BP on record in the past year Clinician-entered: BP Readings from Last 3 Encounters: 06/19/21 122/84 05/21/21 126/72 05/15/21 120/78 Patient-entered: No data recorded Passed - Visit with relevant provider in past 12 months or upcoming 90 days Recent Visits Date Type Provider Dept 06/19/21 Office Visit Zhanna Campos APRN, CHRISTIAN [facility] 05/21/21 Office Visit Alejandro Edouard MD [facility] 12/29/20 Office Visit Alejandro Edouard MD [facility] 11/07/20 Office Visit Alejandro Edouard MD [facility] Showing recent visits within past 365 days and meeting all other requirements Future Appointments No visits were found meeting these conditions. Showing future appointments within next 90 days and meeting all other requirements hydroCHLOROthiazide 25 MG Tablet [Pharmacy Med Name: HYDROCHLOROTHIAZIDE 25MG TA 25 Tablet] 30 Tablet 3 Sig: TAKE 1 TABLET BY MOUTH EVERY DAY Diuretics Protocol Passed - 08/09/2021 2:21 PM Passed - Serum potassium on record in past 12 months POTASSIUM Date Value Ref Range Status 05/14/2021 3.8 3.5 - 5.1 mmol/L Final Passed - Serum sodium on record in past 12 months SODIUM Date Value Ref Range Status 05/14/2021 142 136 - 144 mmol/L Final Passed - Blood pressure on record in past 12 months Clinician-entered: BP Readings from Last 3 Encounters: 06/19/21 122/84 05/21/21 126/72 05/15/21 120/78 Patient-entered: No data recorded Passed - Visit with relevant provider in past 12 months or upcoming 90 days Recent Visits Date Type Provider Dept 06/19/21 Office Visit Zhanna Campos APRN, ENTRY LEVEL PROJECT ENGINEER [facility] 05/21/21 Office Visit Alejandro Edouard MD [facility] 12/29/20 Office Visit Alejandro Edouard MD [facility] 11/07/20 Office Visit Alejandro Edouard MD [facility] Showing recent visits within past 365 days and meeting all other requirements Future Appointments No visits were found meeting these conditions. Showing future appointments within next 90 days and meeting all other requirements Passed - GFR on record in past 12 months GFR, EST. NONAFRICAN Date Value Ref Range Status 05/14/2021 47 (L) >=60 Final topiramate (TOPAMAX) 25 MG Tablet [Pharmacy Med Name: TOPIRAMATE 25MG TABS 25 Tablet] 30 Tablet 3 Sig: TAKE 1 TABLET BY MOUTH EVERY DAY Not Delegated - Anticonvulsants Excluding Benzodiazepines Protocol Failed - 08/09/2021 2:21 PM Failed - This refill cannot be delegated Passed - Visit with relevant provider in past 12 months or upcoming 90 days Recent Visits Date Type Provider Dept 06/19/21 Office Visit Zhanna Campos APRN, ENTRY LEVEL PROJECT ENGINEER [facility] 05/21/21 Office Visit Alejandro Edouard MD [facility] 12/29/20 Office Visit Alejandro Edouard MD [facility] 11/07/20 Office Visit Alejandro Edouard MD [facility] Showing recent visits within past 365 days and meeting all other requirements Future Appointments No visits were found meeting these conditions. Showing future appointments within next 90 days and meeting all other requirements fenofibrate (TRICOR) 145 MG Tablet [Pharmacy Med Name: FENOFIBRATE 145 MG TABS 145 Tablet] 30 Tablet 3 Sig: TAKE 1 TABLET BY MOUTH EVERY DAY Fibrates Protocol Passed - 08/09/2021 2:21 PM Passed - Visit with relevant provider in past 12 months or upcoming 90 days Recent Visits Date Type Provider Dept 06/19/21 Office Visit Zhanna Campos APRN, ENTRY LEVEL PROJECT ENGINEER [facility] 05/21/21 Office Visit Alejandro Edouard MD [facility] 12/29/20 Office Visit Alejandro Edouard MD [facility] 11/07/20 Office Visit Alejandro Edouard MD [facility] Showing recent visits within past 365 days and meeting all other requirements Future Appointments No visits were found meeting these conditions. Showing future appointments within next 90 days and meeting all other requirements Passed - Lipid panel in past 12 months LDL Date Value Ref Range Status 02/28/2021 Final Comment: Unable to calculate LDL when Triglycerides are greater than 400. Direct measurement of LDL is available upon request as a separate test. HDL CHOLESTEROL Date Value Ref Range Status 02/28/2021 44.5 >40 mg/dL Final CHOLESTEROL Date Value Ref Range Status 02/28/2021 229 (H) <=200 mg/dL Final TRIGLYCERIDES Date Value Ref Range Status 02/28/2021 425 (H) <150 mg/dL Final VLDL Date Value Ref Range Status 02/28/2021 Final Comment: Cannot be calculated due to Hypertriglyceridemia. CHOL/HDL RATIO Date Value Ref Range Status 02/28/2021 5.1 (H) 0.0 - 4.4 Final NON-HDL CHOLESTEROL Date Value Ref Range Status 02/28/2021 184.5 (H) <130 mg/dL Final cimetidine (TAGAMET) 400 MG Tablet [Pharmacy Med Name: CIMETIDINE 400MG TABLET 400 Tablet] 60 Tablet 3 Sig: TAKE ONE (1) TABLET BY MOUTH TWICE DAILY H2 Antagonists Protocol Passed - 08/09/2021 2:21 PM Passed - Visit with relevant provider in past 12 months or upcoming 90 days Recent Visits Date Type Provider Dept 06/19/21 Office Visit Zhanna Campos APRN, ENTRY LEVEL PROJECT ENGINEER [facility] 05/21/21 Office Visit [facility] 12/29/20 Office Visit Alejandro Edouard MD [facility] 11/07/20 Office Visit Alejandro Edouard MD [facility] Showing recent visits within past 365 days and meeting all other requirements Future Appointments No visits were found meeting these conditions. 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 documented in this encounter Plan of Treatment Upcoming Encounters Date Type Department Care Team (Late st Contact Info) Description 05/02/2025 11:30 AM CDT Office Visit [facility] Medical Group - Orthopedic Surgery [facility] #2 [place] [address] Tasha Aranda APRN, ZONING ENGINEER #[address] [place] [address] Felicity Boogie MD #[address] [address] 05/05/2025 8:00 AM CDT Hospital Encounter [facility] Gi Lab Periop 1 [place] [address] Simone Blue MD #[address] [address] 05/05/2025 8:00 AM CDT - 05/05/2025 9:00 AM CDT Surgery [facility] Gi Lab Periop [address] [place] [address] Simone Blue MD #2 [facility] [address] [place] [address] EGD 06/10/2025 8:00 AM CDT Office Visit [facility] - Neurology - [place] #[address] [place] [address] Tasha Aranda, VOICE INSTRUCTOR, ZONING ENGINEER #[address] [place] [address] 06/17/2025 8:20 AM CDT Office Visit [facility] Medical 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 COVID - 19 05/11/2024 05/11/2024 05/11/2024 3:23 PM CDT Respiratory Rule-Out 05/11/2024 05/11/2024 024 3:23 PM CDT Assessment Noted Time PHQ-9 Depression Total Score: 0 11/08/19 21 2:00 PM CDT documented as of this encounter Care Teams Private Branch Exchange Operator Relationship Specialty Start Date End Date Alejandro Edouard MD PCP - General Family Medicine 09/28/18 05/03/24 Aide Andre DO 2 [facility] [address] [address] PCP - General Family Medicine 05/05/24 Tasha Aranda APRN, ZONING ENGINEER #[address] [place] [address] Nurse Practitioner Advanced Practice Nurse 06/19/22 05/03/24 Tasha Aranda APRN, ZONING ENGINEER #2 [place] [address] Nurse Practitioner Advanced Practice Nurse 05/06/24 Cara Royal, HELEN [place] Registered Nurse 12/13/24 Simone Blue MD #[address] [address] Consulting Physician Colon and Rectal Surgery 01/06/25 documented as of this encounter
--- OUTSIDE RECORDS SUMMARY | 2025-04-15 10:10 | XMS_ITS | Encounter Summary ---
Author Organization [facility] Address [address] [facility] [place] [address] Phone Care Team Providers Care Software Design Manager Name Role Phone Alejandro Edouard MD Primary Care Provider [phone] Tasha Aranda APRN, CAD DRAFTSMAN Unavailable [phone] Aide Andre DO Primary Care Provider [phone] Tasha Aranda APRN, CAD DRAFTSMAN Unavailable [phone]- [phone] Cara Royal RN Unavailable Unavailable Simone Blue MD Unavailable Reason for Visit * Reason Comments Medication Refill Encounter Details Date Type Department Care Team (Late st Contact Info) Description 04/15/2020 Refill [facility] - Family Medicine [facility] #2 [place] [address] Alejandro Edouard MD #1 [place] [address] Medication Refill Social History Tobacco Use Types Packs/Day Years Used Date Smoking Tobacco: Never Smokeless Tobacco: Never Alcohol Use Standard Drinks/Week Comments Yes 0 (1 standard drink = 0.6 oz pur e alcohol) weekends, rarely PHQ-2 Answer Date Recorded PHQ-2 Score 0 09/22/2019 Sexually Active Control Partners Comments Yes Natural [...] encounter Miscellaneous Notes * Telephone Encounter - Velia Hall RN - 04/18/2020 4:18 PM CDT MARIS: --2019 bronchitis Next OV: none documented in this encounter Plan of Treatment Upcoming Encounters Date Type Department Care Team (Late st Contact Info) Description 05/02/2025 11:30 AM CDT Office Visit [facility] - Orthopedic Surgery [facility] #2 [place] [address] Tasha Aranda APRN, CAD DRAFTSMAN #[address] [place] [address] Felicity Boogie MD #[address] [address] 05/05/2025 8:00 AM CDT [facility] [address] [place] [address] Simone Blue MD #[address] [address] 05/05/2025 8:00 AM CDT - 05/05/2025 9:00 AM CDT [facility] [address] [place] [address] Simone Blue MD #[address] [address] EGD 06/10/2025 8:00 AM CDT Office Visit [facility] - Neurology - [place] #2 [place] [address] Tasha Aranda, TEMPORARY DATA ENTRY CLERK, CAD DRAFTSMAN #[address] [place] [address] 06/17/2025 8:20 AM CDT Office Visit [facility] - Family Medicine - [place] #2 [place] [address] Aide Andre DO [address] [address] Scheduled Procedures Name Priority Associated Diagnoses Date/Ti [...] 19 06/19/2021 06/19/2021 07/09/2021 12:1 6 AM IN 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 COVID - 19 07/15/2022 07/15/2022 07/25/2022 12:1 6 AM IN SHOP 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 COVID - 19 05/11/2024 05/11/2024 05/11/2024 3:23 PM CDT Respiratory Rule-Out 05/11/2024 05/11/2024 024 3:23 PM CDT Assessment Noted Time PHQ-9 Depression Total Score: 0 09/22/19 8:00 AM IN SHOP 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 documented as of this encounter Care Teams Software Design Manager Relationship Specialty Start Date End Date Alejandro Edouard MD PCP - General Family Medicine 09/28/18 05/03/24 Aide Andre DO 2 [facility] [address] [place] [address] PCP - General Family Medicine 05/05/24 Tasha Aranda APRN, CAD DRAFTSMAN #[address] [place] [address] Nurse Practitioner Advanced Practice Nurse 06/19/22 05/03/24 Tasha Aranda APRN, CAD DRAFTSMAN #[address] [place] [address] Nurse Practitioner Advanced Practice Nurse 05/06/24 Cara Royal, RN [place] Registered Nurse 12/13/24 Simone Blue MD #[address] [place] [address] Consulting Physician Colon and Rectal Surgery 01/06/25 documented as of this encounter
--- OUTSIDE RECORDS SUMMARY | 2025-04-15 10:10 | XMS_ITS | Encounter Summary ---
Author Organization [facility] Address [address] [facility] [place] [address] Care Team Providers Care Dialysis Tech Name Role Phone Alejandro Edouard MD Primary Care Provider [phone] Encounter Details Date Type Department Care Team (Late st Contact Info) Description 03/11/2019 Telephone [facility] Orthopedic Surgery [address] [place] [address] Rolly Castro MD [address] [address] Social History Tobacco Use Types Packs/Day Years Used Date Smoking Tobacco: Never Smokeless Tobacco: Never Alcohol Use Standard Drinks/Week Comments Yes 0 (1 standard drink = 0.6 oz pur e alcohol) occ Comments No Sex and Gender Information Value Date Recorded Sex Assigned at Not on file Legal Sex Female 10:30 AM CDT Gender Identity Not on file Sexual Orientation Not on file documented as of this encounter Plan of Treatment Not on file documented as of this encounter Visit Diagnoses Not on filedocumented in this encounter Care Teams Dialysis Tech Relationship Specialty Start Date End Date Alejandro Edouard MD PCP - General 12/01/18 documented as of this encounter
--- OUTSIDE RECORDS SUMMARY | 2025-04-15 10:10 | XMS_ITS | Encounter Summary ---
Author Organization [facility] Address [address] [facility] [address] Phone Care Team Providers Care Coat Joiner Lockstitch Name Role Phone Aide Andre DO Primary Care Provider Tasha Aranda APRN, BARREL LOADER AND CLEANER Unavailable [phone] Cara Royal RN Unavailable Unavailable Simone Blue MD Unavailable Encounter Details Date Type Department Care Team (Late st Contact Info) Description 06/02/2024 Telephone [facility] #2 [place] [address] Aide Andre, DO [address] [address] Social History Tobacco Use Types Packs/Day Years Used Date Smoking Tobacco: Never Smokeless Tobacco: Never Alcohol Use Standard Drinks/Week Comments Yes 6 (1 standard drink = 0.6 oz pur e alcohol) Occasionally [facility] Utilities Answer Date Recorded In the past 12 months has [employer] electric, gas, oil, or water company threatened to shut off services in your home? No 12/04/2023 Social Connection and Isolation Panel Answer Date Recorded In a typical week, how many times do you talk on the phone with family, friends, or neighbors? More than three times a week 12/04/2023 How often do you get togethe r with friends or relatives? Three times a week 12/04/2023 How often do you attend chur ch or alevism services? Patient declined 12/04/2023 Do you belong to any clubs o r organizations such as restorationism groups, unions, fraternal or athletic groups, or school groups? Yes 12/04/2023 How often do you attend meet ings of the clubs or organizations you belong to? More than 4 times per year 12/04/2023 Are you , , di vorced, , never , or living with a partner? 12/04/2023 AUDIT-C Answer Date Recorded Q1: How often do you have a drink containing alc ohol? 2-4 times a month 12/04/2023 Q2: How many drinks containi ng alcohol do you have on a typical day when you are drinking? 5 or 6 12/04/2023 Q3: How often do you have si x or more drinks on one occasion? Weekly 12/04/2023 Overall Financial Resource Strain (CARDIA) Answe r Date Recorded How hard is it for you to pa y for the very basics like food, housing, medical care, and heating? Not hard at all 12/04/2023 PHQ-2 Answer Date Recorded Total Score - Questions 1-9 0 12/2023 [facility] - Occupational Stress Questionnaire Answer Date Recorded Do you feel stress - tense, restless, nervous, or anxious, or unable to sleep at night because your mind is troubled all the time - these days? Only a little 12/04/2023 Exercise Vital Sign Answer Date Recorde d On average, how many days pe r week do you engage in moderate to strenuous exercise (like a brisk walk)? 3 days 12/04/2023 On average, how many minutes do you engage in exercise at this level? 20 min 12/04/2023 Hunger Vital Sign Answer Date Recorded Within the past 12 months, y ou worried that your food would run out before you got the money to buy more. Never true 12/04/19 24 Within the past 12 months, t he food you bought just didn't last and you didn't have money to get more. Never true 12/04/2023 PRAPARE - Transportation Answer Date Re corded In the past 12 months, has l ack of transportation kept you from medical appointments or from getting medications? No 11/16 In the past 12 months, has l ack of transportation kept you from meetings, work, or from getting things needed for daily living? No 12/04/2023 Housing Stability Vital Sign Answer [...] place to sleep or slept in a mcc (including now)? No 12/04/2023 Education Answer Date Recorded What is the [...] as of this encounter Plan of Treatment Upcoming Encounters Date Type Department Care Team (Late st Contact Info) Description 05/02/2025 11:30 AM CDT Office Visit [facility] - Orthopedic Surgery [facility] #2 [place] [address] Tasha Aranda, MANAGER DISTRIBUTION CENTER, BARREL LOADER AND CLEANER #2 [place] [address] Felicity Boogie MD #[address] [address] 05/05/2025 8:00 AM CDT Hospital Encounter [facility] Lab Periop 1 [place] [address] Simone Blue MD #[address] [address] 05/05/2025 8:00 AM CDT - 05/05/2025 9:00 AM CDT [facility] 1 [place] [address] Simone Blue MD #[address] [place] [address] EGD 06/10/2025 8:00 AM CDT [facility] [place] [facility]2 [facility] [place] [address] Tasha Aranda, MANAGER DISTRIBUTION CENTER, BARREL LOADER AND CLEANER #2 [place] [address] 06/17/2025 8:20 AM CDT Office Visit [facility] - Family Medicine - [place] #2 [place] [address] Aide Andre DO [address] [address] Scheduled Procedures Name Priority Associated Diagnoses Date/Ti me EGD HISTORY OF PEPTIC ULCER, HISTORY OF HYPERPLASTIC COLON 05/05/2025 8:00 AM CDT COLONOSCOPY HISTORY OF PEPTIC ULCER, HISTORY OF HYPERPLASTIC COLON 05/05/2025 8:00 AM CDT documented as of this encounter Visit Diagnoses Not on filedocumented in this encounter Additional Health Concerns Assessment Noted Time PHQ-9 Depression Total Score: 0 11/21/19 7:41 AM CDT documented as of this encounter Care Teams Coat Joiner Lockstitch Relationship Specialty Start Date End Date Aide Andre DO 2 [facility] [address] [place] [address] PCP - General Family Medicine 05/05/24 Tasha Aranda APRN, BARREL LOADER AND CLEANER #2 [place] [address] Nurse Practitioner Advanced Practice Nurse 05/06/24 Cara Royal RN [place] Registered Nurse 12/13/24 Simone Blue MD #[address] [address] Consulting Physician Colon and Rectal Surgery 01/06/25 documented as of this encounter
--- OUTSIDE RECORDS SUMMARY | 2025-04-15 10:10 | XMS_ITS | Encounter Summary ---
Author Organization [facility] Address [address] [facility] [place] [address] Phone Care Team Providers Care Harp Action Assembler Name Role Phone Alejandro Edouard MD Primary Care Provider [phone] Tasha Aranda APRN, MEMBERSHIP SOLICITOR Unavailable [phone] Aide Andre DO Primary Care Provider [phone] Tasha Aranda APRN, MEMBERSHIP SOLICITOR Unavailable [phone]- [phone] Cara Royal RN Unavailable Unavailable Simone Blue MD Unavailable Reason for Visit * Reason Comments Medication Refill Encounter Details Date Type Department Care Team (Late st Contact Info) Description 12/12/2021 Refill [facility] Group - Family Medicine [facility] #2 [place] [address] Alejandro Edouard MD #1 [place] [address] Medication Refill Social History Tobacco Use Types [...] Encounter - Renetta Conklin RN - 12/13/2021 8:47 AM CDT Medication failed the protocol, provider to review and approve the medication order if appropriate. Requested Prescriptions Pending Prescriptions Disp Refills metoprolol Succinate (TOPROL-XL) 25 MG TABLET SR 24 HR [Pharmacy Med Name: METOPROLOL SUCC ER 25MG 25 Tablet] 30 Tablet 10 Sig: TAKE 1 TABLET BY MOUTH EVERY DAY Beta-Blockers Protocol Passed - 12/12/2021 1:03 PM Passed - BP on record in the past year Clinician-entered: BP Readings from Last 3 Encounters: 11/19/21 142/68 11/17/21 106/63 10/03/21 124/80 Patient-entered: No data recorded Passed - Visit with relevant provider in past 12 months or upcoming 90 days Recent Visits Date Type Provider Dept 11/19/21 Office Visit Alejandro Edouard MD [facility] 10/01/21 Office Visit Alejandro Edouard MD [facility] 06/19/21 Office Visit Zhanna Campos APRN, [facility] [place] 05/21/21 Office Visit Alejandro Edouard MD [facility] 12/29/20 Office Visit [facility] [place] Showing recent visits within past 365 days and meeting all other requirements Future Appointments No visits were found meeting these conditions. Showing future appointments within next 90 days and meeting all other requirements omeprazole (PriLOSEC) 20 MG CAPSULE DELAYED RELEASE [Pharmacy Med Name: OMEPRAZOLE DR 20MG CAP 20 Capsule] 30 Capsule 10 Sig: TAKE 1 CAPSULE BY MOUTH EVERY DAY Proton Pump Inhibitors Protocol Passed - 12/12/2021 1:03 PM Passed - Visit with relevant provider in past 12 months or upcoming 90 days Recent Visits Date Type Provider Dept 11/19/21 Office Visit Alejandro Edouard MD [facility] 10/01/21 Office Visit Alejandro Edouard MD [facility] 06/19/21 Office Visit Zhanna Campos APRN, BLOCKER METAL BASE [facility] [place] 05/21/21 Office Visit Alejandro Edouard MD [...] HYDROCHLOROTHIAZIDE 25MG TA 25 Tablet] 30 Tablet 10 Sig: TAKE 1 TABLET BY MOUTH EVERY DAY Diuretics Protocol Passed - 12/12/2021 1:03 PM Passed - Serum potassium on record in past 12 months POTASSIUM Date Value Ref Range Status 11/17/2021 2.9 (L) 3.5 - 5.1 mmol/L Final Passed - Serum sodium on record in past 12 months SODIUM Date Value Ref Range Status 11/17/2021 135 (L) 136 - 144 mmol/L Final Passed - Blood pressure on record in past 12 months Clinician-entered: BP Readings from Last 3 Encounters: 11/19/21 142/68 11/17/21 106/63 10/03/21 124/80 Patient-entered: No data recorded Passed - Visit with relevant provider in past 12 months or upcoming 90 days Recent Visits Date Type Provider Dept 11/19/21 Office Visit Alejandro Edouard MD [facility] 10/01/21 Office Visit Alejandro Edouard MD [facility] 06/19/21 Office Visit Zhanna Campos APRN, BLOCKER METAL BASE [facility] 05/21/21 Office Visit Alejandro Edouard MD [facility] 12/29/20 Office Visit Alejandro Edouard MD [facility] [place] Showing recent visits within past 365 days and meeting all other requirements Future Appointments No visits were found meeting these conditions. Showing future appointments within next 90 days and meeting all other requirements Passed - GFR on record in past 12 months GFR, EST. NONAFRICAN Date Value Ref Range Status 11/17/2021 >60 >=60 Final topiramate (TOPAMAX) 25 MG Tablet [Pharmacy Med Name: TOPIRAMATE 25MG TABS 25 Tablet] 30 Tablet 10 Sig: TAKE 1 TABLET BY MOUTH EVERY DAY Not Delegated - Anticonvulsants Excluding Benzodiazepines Protocol Failed - 12/12/2021 1:03 PM Failed - This refill cannot be delegated Passed - Visit with relevant provider in past 12 months or upcoming 90 days Recent Visits Date Type Provider Dept 11/19/21 Office Visit Alejandro Edouard MD [facility] 10/01/21 Office Visit Alejandro Edouard MD [facility] 06/19/21 Office Visit Zhanna Campos APRN, [facility] [place] 05/21/21 Office Visit Alejandro Edouard MD [facility] 12/29/20 Office Visit Alejandro Edouard MD [facility] [place] Showing recent visits within past 365 days and meeting all other requirements Future Appointments No visits were found meeting these conditions. Showing future appointments within next 90 days and meeting all other requirements documented in this encounter Plan of Treatment Upcoming Encounters Date Type Department Care Team (Late st Contact Info) Description 05/02/2025 11:30 AM CDT Office Visit [facility] Medical Group - Orthopedic Surgery - [place] #2 [place] [address] Tasha Aranda APRN, MEMBERSHIP SOLICITOR #2 [place] [address] Felicity Boogie MD #[address] [address] 05/05/2025 8:00 AM CDT [facility] [place] [address] Simone Blue MD #[address] [address] 05/05/2025 8:00 AM CDT - 05/05/2025 9:00 AM CDT [facility] [place] [address] Simone Blue MD #[address] [address] EGD 06/10/2025 8:00 AM CDT Office Visit [facility] - Neurology - [place] #2 [place] [address] Tasha Aranda, COMMERCIAL ANALYST, MEMBERSHIP SOLICITOR [address]2 [place] [address] 06/17/2025 8:20 AM CDT Office Visit [facility] Medical Group - Family Medicine - [place] #2 [place] [address] Aide Andre, DO [address] [address] Scheduled Procedures Name Priority Associated Diagnoses Date/Ti [...] 19 07/15/2022 07/15/2022 07/25/2022 12:1 6 AM WARP DYEING VAT TENDER COVID - 19 05/11/2024 05/11/2024 05/11/2024 3:23 PM CDT Respiratory Rule-Out 05/11/2024 05/11/2024 024 3:23 PM CDT Assessment Noted Time PHQ-9 Depression Total Score: 0 11/08/19 21 2:00 PM CDT documented as of this encounter Care Teams Harp Action Assembler Relationship Specialty Start Date End Date Alejandro Edouard MD PCP - General Family Medicine 09/28/18 05/03/24 Aide Andre DO [address] [address] PCP - General Family Medicine 05/05/24 Tasha Aranda APRN, MEMBERSHIP SOLICITOR [address]2 [place] [address] Nurse Practitioner Advanced Practice Nurse 06/19/22 05/03/24 Tasha Aranda APRN, MEMBERSHIP SOLICITOR #2 [place] [address] Nurse Practitioner Advanced Practice Nurse 05/06/24 Cara Royal, HELEN [place] Registered Nurse 12/13/24 Simone Blue MD #[address] [address] Consulting Physician Colon and Rectal Surgery 01/06/25 documented as of this encounter
--- OUTSIDE RECORDS SUMMARY | 2025-04-15 10:10 | XMS_ITS | Encounter Summary ---
Author Organization [facility] Address [address] [facility] [place] [address] Phone Care Team Providers Care Chute Builder Name Role Phone Alejandro Edouard MD Primary Care Provider [phone] Tasha Aranda APRN, IOS PROGRAMMER Unavailable [phone] Aide Andre DO Primary Care Provider Tasha Aranda APRN, IOS PROGRAMMER Unavailable +- [phone] Cara Royal RN Unavailable Unavailable Simone Blue MD Unavailable Reason for Visit * Reason Comments Medication Refill Encounter Details Date Type Department Care Team (Late st Contact Info) Description 10/23/2022 Refill [facility] - Family Medicine [facility] #2 [place] [address] Alejandro Edouard MD #1 [place] [address] Medication Refill Social History Tobacco Use Types [...] encounter Miscellaneous Notes * Telephone Encounter - Kristin Salazar RN - 10/24/2022 8:16 AM PEDIATRIC GENETICIST Per nursing clinical judgement, provider to review and approve the medication(s) order(s) if appropriate. Requested Prescriptions Pending Prescriptions Disp Refills albuterol 108 (90 Base) MCG/ACT Aerosol Solution [Pharmacy Med Name: ALBUTEROL HFA *PROA* 90MCG 108(90 BAS Aerosol] 8.5 g 10 Sig: INHALE TWO (2) PUFFS BY MOUTH EVERY 4 HOURS NEEDED FOR WHEEZING Short Acting Inhaled Beta-Agonists Protocol Passed - 10/23/2022 5:15 PM Passed - Visit with relevant provider in past 12 months or upcoming 90 days Recent Visits Date Type Provider Dept 07/15/22 Office Visit Umm Pascal, FARMWORKER FIELD CROP, PROMOTION MANAGER [facility] [place] 05/21/22 Office Visit Alejandro Edouard MD [facility] 11/19/21 Office Visit Alejandro Edouard MD [facility] [place] Showing recent visits within past 365 days and meeting all other requirements Future Appointments Date Type Provider Dept 11/22/22 Appointment [facility] MD [facility] [place] Showing future appointments within next 90 days and meeting all other requirements ATRIC GENETICIST documented in this encounter Plan of Treatment Upcoming Encounters Date Type Department Care Team (Late st Contact Info) Description 05/02/2025 11:30 AM CDT Office Visit [facility] - Orthopedic Surgery - [place] #2 [place] [address] Tasha Aranda APRN, IOS PROGRAMMER #2 [place] [address] Felicity Boogie MD #[address] [address] 05/05/2025 8:00 AM CDT [facility] 1 [place] [address] Simone Blue MD #[address] [address] 05/05/2025 8:00 AM CDT - 05/05/2025 9:00 AM CDT Surgery [facility] Gi Lab Periop 1 [place] [address] Simone Blue MD #[address] [address] EGD 06/10/2025 8:00 AM CDT Office Visit [facility] - Neurology - [place] #2 [place] [address] Tasha Aranda FARMWORKER FIELD CROP, IOS PROGRAMMER #2 [place] [address] 06/17/2025 8:20 AM CDT Office Visit [facility] - Family Medicine - [place] #2 [place] [address] Aide Andre, DO [address] [address] Scheduled Procedures Name Priority Associated Diagnoses Date/Ti [...] Time PHQ-9 Depression Total Score: 0 07/15/20 1:00 PM PEDIATRIC GENETICIST documented as of this encounter Care Teams Chute Builder Relationship Specialty Start Date End Date Alejandro Edouard MD PCP - General Family Medicine 09/28/18 05/03/24 Aide Ander DO [address] [address] PCP - General Family Medicine 05/05/24 Tasha Aranda APRN, IOS PROGRAMMER #2 [place] [address] Nurse Practitioner Advanced Practice Nurse 06/19/22 05/03/24 Tasha Aranda APRN, IOS PROGRAMMER #2 [place] [address] Nurse Practitioner Advanced Practice Nurse 05/06/24 Cara Royal, HELEN [place] Registered Nurse 12/13/24 Simone Blue MD #[address] [address] Consulting Physician Colon and Rectal Surgery 01/06/25 documented as of this encounter
--- OUTSIDE RECORDS SUMMARY | 2025-04-15 10:10 | XMS_ITS | Encounter Summary ---
Author Organization [facility] Address [address] [place] [address] Phone Care Team Providers Care Icicle Machine Operator Name Role Phone Alejandro Edouard MD Primary Care Provider Tasha Aranda APRN, CHANNEL OPENER OUTSOLES Unavailable [phone] Aide Andre DO Primary Care Provider Tasha Aranda APRN, CHANNEL OPENER OUTSOLES Unavailable [phone]- [phone] Cara Royal RN Unavailable Unavailable Simone Blue MD Unavailable Reason for Visit * Reason Comments Medication Refill Encounter Details Date Type Department Care Team (Late st Contact Info) Description 05/17/2021 Refill [facility] - Family Medicine [facility] #2 [place] [address] Alejandro Edouard MD #1 [place] [address] Medication Refill Social History Tobacco Use Types [...] have Coronavirus / COVID-19? No / Unsure 05/15/2021 8:13 AM CDT documented as of this encounter Miscellaneous Notes * Telephone Encounter - Renetta Conklin RN - 05/17/2021 3:02 PM CDT Medication failed the protocol, provider to review and approve the medication order if appropriate. Requested Prescriptions Pending Prescriptions Disp Refills ibuprofen (MOTRIN) 800 MG Tablet [Pharmacy Med Name: IBUPROFEN 800 MG TABS 800 Tablet] 90 Tablet 3 Sig: TAKE ONE TABLET BY MOUTH EVERY 8 HOURS NSAIDs Protocol Failed - 05/17/2021 8:36 AM Failed - Normal serum creatinine in past 12 months CREATININE, BLOOD Date Value Ref Range Status 05/14/2021 1.19 (H) 0.60 - 1.10 mg/dL Final Passed - Visit with relevant provider in past 12 months or upcoming 90 days Recent Visits Date Type Provider Dept 12/29/20 Office Visit Alejandro Edouard MD [facility] 11/07/20 Office Visit Alejandro Edouard MD [facility] 07/07/20 Office Visit Alejandro Edouard MD [facility] Showing recent visits within past 365 days and meeting all other requirements Future Appointments Date Type Provider Dept 05/21/21 Appointment Alejandro Edouard MD [facility] Showing future appointments within next 90 days and meeting all other requirements Passed - No matching NSAID med order in past 45 days No matching medication orders between 04/02/2021 3:02 PM and 05/17/2021 3:02 PM Passed - AST less than 55 or [...] 05/14/2021 37.0 36.0 - 47.0 % Final documented in this encounter Plan of Treatment Upcoming Encounters Date Type Department Care Team (Late st Contact Info) Description 05/02/2025 11:30 AM CDT Office Visit [facility] - Orthopedic Surgery [facility] #2 [place] [address] Tasha Aranda APRN, CHANNEL OPENER OUTSOLES #[address] [place] [address] Felicity Boogie MD #[address] [address] 05/05/2025 8:00 AM CDT Hospital Encounter [facility] Gi Lab Periop 1 [place] [address] Simone Blue MD #[address] [address] 05/05/2025 8:00 AM CDT - 05/05/2025 9:00 AM CDT Surgery [facility] Periop 1 [place] [address] Simone Blue MD #[address] [address] EGD 06/10/2025 8:00 AM CDT Office Visit [facility] - Neurology - [place] #2 [place] [address] Tasha Aranda, ACADEMIC SERVICES COORDINATOR, CHANNEL OPENER OUTSOLES [address] [place] [address] 06/17/2025 8:20 AM CDT Office Visit [facility] Medical [facility] - Family Medicine - [place] #2 [place] [address] Aide Andre DO [address] [address] Scheduled Procedures Name Priority Associated Diagnoses Date/Ti [...] 19 06/19/2021 06/19/2021 07/09/2021 12:1 6 AM ENERGY DERIVATIVES TRADER COVID - 19 07/15/2022 07/15/2022 07/25/2022 12:1 6 AM ENERGY DERIVATIVES TRADER COVID - 19 05/11/2024 05/11/2024 05/11/2024 3:23 PM CDT Respiratory Rule-Out 05/11/2024 05/11/2024 024 3:23 PM CDT Assessment Noted Time PHQ-9 Depression Total Score: 0 11/08/19 21 2:00 PM CDT documented as of this encounter Care Teams Icicle Machine Operator Relationship Specialty Start Date End Date Alejandro Edouard MD PCP - General Family Medicine 09/28/18 05/03/24 Aide Andre DO 2 [facility] [address] [place] [address] PCP - General Family Medicine 05/05/24 Tasha Aranda APRN, CHANNEL OPENER OUTSOLES #[address] [place] [address] Nurse Practitioner Advanced Practice Nurse 06/19/22 05/03/24 Tasha Aranda APRN, CHANNEL OPENER OUTSOLES #[address] [place] [address] Nurse Practitioner Advanced Practice Nurse 05/06/24 Cara Royal, HELEN [place] Registered Nurse 12/13/24 Simone Blue MD #[address] [address] Consulting Physician Colon and Rectal Surgery 01/06/25 documented as of this encounter
--- OUTSIDE RECORDS SUMMARY | 2025-04-15 10:10 | XMS_ITS ---
Care Plan Created on: April 15, 2025 Linda Snider : 1960 Sex: Female Author Organization [facility] Address [address] [place] [address] Phone Care Team Providers Care Office Clerk Routine Name Role Phone ThaiAide philip Ro CRISTOBAL Primary Care Provider [phone] Tasha Aranda PORTABLE CANTEEN OPERATOR, SHEET METAL SUPERVISOR Unavailable [phone] Cara Royal RN Unavailable Unavailable Simone Blue MD Unavailable Active Problems Problem Noted Date Diagnosed Date [...] 10/28/2018 Overview (10/28/2018): lasted about 2 weeks Additional Health Concerns Active Problems Noted Date Diagnosed Date [facility] TYPE 2 DIABETES CONCERN 12/06/2024 [facility] TYPE 2 DIABETES NO MEDICATION PATTERN DANILO RN 12/06/2024 [facility] HYPERTENSION CONCERN (P ATIENT ON HIGH BLOOD [...] Progression (Hypertension) 04/07/2025 Resistant Hypertension (Hypertension) 04/07/2025 Goals Goal Patient Goal Type Associated Problems [...] Patient Goals On track(04/07 11:01 AM CDT) No Patricia Schofield RN Note: Follow Up Date 06/07/2026 - [...] patients manage type 2 diabetes Care Plan [facility] TYPE 2 DIABETES CONCERN No Aide Andre, DO Help patient manage blood glucose Care Plan [facility] TYPE 2 DIABETES NO MEDICATION PATTERN CONCERN No Aide Andre, DO Help patient manage hypertension Care Plan [facility] HYPERTENSION CONCERN (PATIENT ON HIGH BLOOD PRESSURE MEDICATIONS) On track(12/13 10:22 AM CDT) No Cara Royal RN Activity and Exercise Increased Care Plan Activity and Exercise (Wellness) No Patricia Schofield RN Note: Evidence-based guidance: Review current exercise [...] patient has safety plan. Facilitate entry into snf or other safe location when patient expresses [...] Identify tobacco use status including cigarette, cigar, tghu-pirp-xtz, dissolvable, hookah or smokeless tobacco, nicotine gels, [...] Note: Evidence-based guidance: Assess health literacy using [place] [facility] recommended questions or standardized tools. [...] the community such as library, continuing education, Micronesian as a second language class, support group or peer health head coach. Provide educational materials that are written in plain language (3rd to 5th grade reading level) and include icons, pictures and tables; provide essential information first. Notes: Medication Adherence Maintained Care Plan Medication Adherence (Wellness) Patricia Arrieta RN Note: Evidence-based guidance: Develop a complete and accurate medication list including those prescribed and exyr-nfo-ozdufmd, those taken only occasionally and those not [...] Treatment Maximized Care Plan Resistant Hypertension (Hypertension) No Mugge, Patricia E., RN Note: Evidence-based guidance: Assess patient response [...] relieve obstructive sleep apnea when present. Notes: Interventions Care Plan Interventions Intervention Entry Date Outcome Facilitate Adherence to Lifestyle Change 04/07/2025 Note:Care Management Activities: {Facilitate Adherence to Lifestyle Change (Clinical) (Hypertension):97663} Notes: Alleviate Barriers to Hypertension Treatment 04/07/2025 Note:Care Management Activities: {Alleviate Barriers to Hypertension Treatment (Clinical) (Hypertension):03044} Notes: Identify and Monitor Blood Pressure Elevation 04/07/2025 Note:Care Management Activities: {Identify and Monitor Blood Pressure Elevation (Clinical) (Hypertension):19793} Notes: Identify and Reduce Risk to Safety 04/07/2025 Note:Care Management Activities: {Identify and Reduce Risk to Safety (Clinical) (Wellness):79213} Notes: Facilitate Optimal Oral Health 04/07/2025 Note:Care Management Activities: {Facilitate Optimal Oral Health (Clinical) (Wellness):34978} Notes: Identify and Promote Change to Drug Misuse 04/07/2025 Note:Care Management Activities: {Identify and Promote Change to Drug Misuse (Clinical) (Wellness):66803} Notes: Identify and Promote Change to Alcohol Misuse 04/07/2025 Note:Care Management Activities: {Identify and Promote Change to Alcohol Misuse (Clinical) (Wellness):91051} Notes: Alleviate Barriers to Healthy Eating 04/07/2025 Note:Care Management Activities: {Alleviate Barriers to Healthy Eating (Clinical) (Wellness):60778} Notes: Identify and Optimize Mental Processes 04/07/2025 Note:Care Management Activities: {Identify and Optimize Mental Processes (Clinical) (Wellness):60693} Notes: Optimize Medication Use 04/07/2025 Note:Care Management Activities: {Optimize Medication Use (Clinical) (Wellness):20983} Notes: Identify Deficit and Optimize Health Literacy 04/07/2025 Note:Care Management Activities: {Identify Deficit and Optimize Health Literacy (Clinical) (Wellness):97149} Notes: Promote Smoking Cessation 04/07/2025 Note:Care Management Activities: {Promote Smoking Cessation (Clinical) (Wellness):39277} Notes: Promote Sexual Health 04/07/2025 Note:Care Management Activities: {Promote Sexual Health (Clinical) (Wellness):64379} Notes: Identify Risk and Plan for Personal Safety (Intimate Partner Violence) 04/07/2025 Note:Care Management Activities: {Identify Risk and Plan for Personal Safety (Intimate Partner Violence) (Clinical) (Wellness):17556} Notes: Alleviate Barriers to Increasing Activity Level 04/07/2025 Note:Care Management Activities: {Alleviate Barriers to Increasing Activity Level (Clinical) (Wellness):08191} Notes: Related Goals and Interventions Goal Associated Intervent ions Activity and Exercise Increased Alleviat e Barriers to Increasing Activity Level Personal Safety Maintained Identify Risk and Plan for Personal Safety (Intimate Partner Violence) Sexual Risk Reduced Promote Sexual Healt h Tobacco Use Managed Promote Smoking Cess ation Health Literacy Improved Identify Defici t and Optimize Health Literacy Medication Adherence Maintained Optimize Medication Use Cognitive Function Enhanced Identify and Optimize Mental Processes Healthy Nutrition Achieved Alleviate Bar riers to Healthy Eating Alcohol Use Managed Identify and Promote Change to Alcohol Misuse Drug Use Managed Identify and Promote Change to Drug Misuse Oral Health Maintained Facilitate [place] Oral Health Home and Family Safety Maintained Identi fy and Reduce Risk to Safety Hypertension Monitored Identify and Christina tor Blood Pressure Elevation Disease Progression Prevented or Minimiz ed Alleviate Barriers to Hypertension Treatment Response to Treatment Maximized Facilita te Adherence to Lifestyle Change
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
--- OUTSIDE RECORDS SUMMARY | 2025-04-15 10:10 | XMS_ITS | Encounter Summary ---
Author Organization [facility] Address [address] [facility] [place] [address] Phone Care Team Providers Care Route Driver Coin Machines Name Role Phone Alejandro Edouard MD Primary Care Provider [phone] Tasha Aranda APRN, DISPLAY MAKER Unavailable [phone] Aide Andre DO Primary Care Provider [phone] Tasha Aranda APRN, DISPLAY MAKER Unavailable [phone] Cara Royal RN Unavailable Unavailable Simone Blue MD Unavailable Reason for Visit * Reason Comments Medication Refill Encounter Details Date Type Department Care Team (Late st Contact Info) Description 11/21/2022 Refill [facility] - Family Medicine [facility] [address] [place] [address] Emilio Torres MD #[address] [address] Medication Refill Social History Tobacco Use Types [...] suspected to have Coronavirus/COVID-19? No / Unsure 11/05/2022 8:09 AM CDT documented as of this encounter Miscellaneous Notes * Telephone Encounter - Renetta Conklin RN - 11/21/2022 5:21 PM CDT Medication failed the protocol, provider to review and approve the medication order if appropriate. Requested Prescriptions Pending Prescriptions Disp Refills topiramate (TOPAMAX) 25 MG Tablet [Pharmacy Med Name: TOPIRAMATE 25MG TABS 25 Tablet] 60 Tablet 2 Sig: TAKE 1 TABLET BY MOUTH TWICE DAILY Not Delegated - Anticonvulsants Excluding Benzodiazepines Protocol Failed - 11/21/2022 5:06 PM Failed - This refill cannot be delegated Passed - Visit with relevant provider in past 12 months or upcoming 90 days Recent Visits Date Type Provider Dept 11/05/22 Office Visit Zhanna Campos APRN, [facility] 07/15/22 Office Visit Umm Pascal APRN, [facility] 05/21/22 Office Visit Alejandro Edouard MD [facility] Showing recent visits within past 365 days and meeting all other requirements Future Appointments Date Type Provider Dept 11/22/22 Appointment Alejandro Edouard MD [facility] Showing future appointments within next 90 days and meeting all other requirements documented in this encounter Plan of Treatment Upcoming Encounters Date Type Department Care Team (Late st Contact Info) Description 05/02/2025 11:30 AM CDT Office Visit [facility] - Orthopedic Surgery - [place] [address] [place] [address] Tasha Aranda APRN, DISPLAY MAKER [address] [place] [address] Felicity Boogie MD #[address] [address] 05/05/2025 8:00 AM CDT Hospital Encounter [facility]iop [address] [place] [address] Simone Blue MD #[address] [address] 05/05/2025 8:00 AM CDT - 05/05/2025 9:00 AM CDT Surgery [facility]iop [address] [place] [address] Simone Blue MD #[address] [address] EGD 06/10/2025 8:00 AM CDT Office Visit [facility] - Neurology - [place] [address] [place] [address] Tasha Aranda, SHOWROOM CONSULTANT, DISPLAY MAKER [address] [place] [address] 06/17/2025 8:20 AM CDT Office Visit [facility] - Family Medicine - [place] [address] [place] [address] Aide Andre, DO [address] [address] Scheduled Procedures Name Priority Associated Diagnoses Date/Ti [...] Total Score: 0 07/15/20 22 1:00 PM RESIDENT SERVICE COORDINATOR documented as of this encounter Care Teams Route Driver Coin Machines Relationship Specialty Start Date End Date Alejandro Edouard MD PCP - General Family Medicine 09/28/18 05/03/24 Aide Andre DO 2 [facility] [address] [place] [address] PCP - General Family Medicine 05/05/24 Tasha Aranda APRN, DISPLAY MAKER [address] [place] [address] Nurse Practitioner Advanced Practice Nurse 06/19/22 05/03/24 Tasha Aranda APRN, DISPLAY MAKER [address] [place] [address] Nurse Practitioner Advanced Practice Nurse 05/06/24 Cara Royal, [place] Registered Nurse 12/13/24 Simone Blue MD #[address] [address] Consulting Physician Colon and Rectal Surgery 01/06/25 documented as of this encounter
--- OUTSIDE RECORDS SUMMARY | 2025-04-15 10:10 | XMS_ITS | Encounter Summary ---
Author Organization [facility] Address [address] [facility] [place] [address] Phone Care Team Providers Care Plate Embosser Name Role Phone Alejandro Edouard MD Primary Care Provider Tasha Aranda APRN, COUNTER STACKER Unavailable [phone] Aide Andre DO Primary Care Provider [phone] Tasha Aranda APRN, COUNTER STACKER Unavailable [phone] Cara Royal RN Unavailable Unavailable Simone Blue MD Unavailable Reason for Referral * Radiology Services (Routine) - Closed Specialty Diagnoses / Procedures Referred By Tito samuels Referred To Contact Radiology Diagnoses Pre-op testing Procedures EKG 12 LEAD Hossein Rachel MD Phone: tel: fax: Referral ID Status Reason Start Date Expiration Date Visits Re quested Visits Authorized [id number] Closed 05/14/2021 1 1 * Radiology Services (Routine) - Closed Specialty Diagnoses / Procedures Referred By Tito samuels Referred To Contact Radiology Diagnoses Pre-op testing Procedures XR CHEST 2 VIEWS Hossein Rachel MD Phone: tel: fax: Referral ID Status Reason Start Date Expiration Date Visits Re quested Visits Authorized [id number] Closed 05/14/2021 1 1 Encounter Details Date Type Department Care Team (Latest Contact Info) Description 05/14/2021 [facility] Ad[facility] [address] [place] [id number] Hossein Rachel MD [address] [place] [address] Pre-op testing (Primary Dx) Social History Tobacco Use Types Packs/Day Years [...] AM CDT documented as of this encounter Plan of Treatment Upcoming Encounters Date Type Department Care Team (Late st Contact Info) Description 05/02/2025 11:30 AM CDT [facility] #2 [place] [address] Tasha Aranda, MOLD MAKER PLASTER, COUNTER STACKER #2 [place] [address] Felicity Boogie MD #[address] [address] 05/05/2025 8:00 AM CDT [facility] [address] [place] [address] Simone Blue MD #[address] [address] 05/05/2025 8:00 AM CDT - 05/05/2025 9:00 AM CDT Surgery [facility] Gi Lab Periop 1 [place] [address] Simone Blue MD #[address] [address] EGD 06/10/2025 8:00 AM CDT Office [facility] - Neurology - [place] #2 [place] [address] Tasha Aranda, MOLD MAKER PLASTER, COUNTER STACKER #2 [place] [address] 06/17/2025 8:20 AM CDT Office Visit [facility] - Family Medicine - [place] #2 [place] [address] Aide Andre, DO [address] [address] Scheduled Procedures Name Priority Associated Diagnoses Date/Ti me EGD HISTORY OF PEPTIC ULCER, HISTORY OF HYPERPLASTIC COLON 05/05/2025 8:00 AM CDT COLONOSCOPY HISTORY OF PEPTIC ULCER, HISTORY OF HYPERPLASTIC COLON 05/05/2025 8:00 AM CDT documented as of this encounter Results * XR CHEST 2 VIEWS (05/14/2021 8:53 AM CDT) Anatomical Region Laterality Modality Chest N/A Digital Radiogra phy 05/14/2021 3:53 PM CDT Impressions 05/14/2021 3:56 PM CDT IMPRESSION: No acute cardiopulmonary abnormality. Narrative 05/14/2021 3:56 PM CDT EXAM DESCRIPTION: XR CHEST 2 VIEWS REASON FOR STUDY: Encounter for other preprocedural examination (carpal tunnel surgery May 25, 2021. TECHNIQUE: PA and lateral radiographic views of the chest acquired. COMPARISON: July 07, 2020 and February 04, 2019 FINDINGS: LUNGS/PLEURA: No focal consolidation or pneumothorax. No pleural effusion. HEART/MEDIASTINUM: Heart size is normal. Normal mediastinal and hilar contours. HARDWARE/LINES/TUBES: None. BONES: No acute findings. OTHER: No other significant finding. THIS IS AN ELECTRONICALLY VERIFIED FINAL REPORT 05/14/2021 3:53 PM - Electronically signed by Thuan Dubose M.D. RB: RB Report ID: [id number] Reading Location: [id number] Procedure Note Thuan Dubose MD - 05/14/2021 EXAM DESCRIPTION: XR CHEST 2 VIEWS REASON FOR STUDY: Encounter for other preprocedural examination (carpal tunnel surgery May 25, 2021. TECHNIQUE: PA and lateral radiographic views of the chest acquired. COMPARISON: July 07, 2020 and February 04, 2019 FINDINGS: LUNGS/PLEURA: No focal consolidation or pneumothorax. No pleural effusion. HEART/MEDIASTINUM: Heart size is normal. Normal mediastinal and hilar contours. HARDWARE/LINES/TUBES: None. BONES: No acute findings. OTHER: No other significant finding. THIS IS AN ELECTRONICALLY VERIFIED FINAL REPORT 05/14/2021 3:53 PM - Electronically signed by Thuan Dubose M.D. RB: RB Report ID: [id number] Reading Location: [id number] IMPRESSION: No acute cardiopulmonary abnormality. Hossein Rachel MD IMG DIAGNOSTIC ORDERABLES Final Result * (ABNORMAL) CMP (COMPREHENSIVE METABOLIC PANEL) (05/14/2021 8:48 AM CDT) SODIUM 142 136 - 144 mmol/L 05/14/2021 9:59 AM CDT [facility] POTASSIUM 3.8 3.5 - 5.1 mmol/L 05/14/2021 9:59 AM CDT [facility] CHLORIDE 103 100 - 110 mmol/L 05/14/2021 9:59 AM CDT [facility] CO2, VENOUS 28 22 - 32 mmol/L 05/14/2021 9:59 AM CDT [facility] ANION GAP 14.8 8.0 - 20.0 mmol/L 05/14/2021 9:59 AM CDT [facility] GLUCOSE 120(H) 70 - 99 mg/dL 05/14/2021 9:59 AM CDT [facility] BUN 20 6 - 20 mg/dL 05/14/2021 9:59 AM CDT [facility] CREATININE, BLOOD 1.19(H) 0.60 - 1.10 mg/dL 05/14/2021 9:59 AM CDT [facility] BUN/CREATININE RATIO 17 12 - 20 ratio 05/14/2021 9:59 AM CDT [facility] TOTAL PROTEIN 7.1 6.0 - 8.3 g/dL 05/14/2021 9:59 AM CDT [facility] ALBUMIN 4.6 3.5 - 5.2 g/dL 05/14/2021 9:59 AM CDT [facility] Comment: The colormetric methods used for the determination of Albumin may lead to falsely elevated test results in patients suffering from renal failure or insufficiency due to interference with other proteins. A/G RATIO 1.8 1.0 - 2.0 05/14/2021 9:59 AM CDT [facility] CALCIUM 9.6 8.9 - 10.3 mg/dL 05/14/2021 9:59 AM CDT [facility] T BILI 0.4 <=1.2 mg/dL 05/14/2021 9:59 AM CDT [facility] SGOT (AST) 31 <=32 U/L 05/14/2021 9:59 AM CDT [facility] SGPT (ALT) 21 <=41 U/L 05/14/2021 9:59 AM CDT [facility] ALKALINE PHOSPHATASE 57 35 - 105 U/L 05/14/2021 9:59 AM CDT [facility] GFR, EST. NONAFRICAN 47(L) >=60 05/14/2021 9:59 AM CDT [facility] GFR, EST. 56(L) >=60 9:59 AM CDT [facility] Comment: Creatinine Clearance is the preferred criteria for selecting drug dose adjustments in renally impaired patients. The GFR is provided as additional pertinent clinical information. GFR is reported in mL/min/1.73 sq m. IS THE PATIENT REQUIRED TO BE FASTING? No 05/14/2021 9:59 AM CDT [facility] Blood Venipuncture / Unknown 05/14/2021 8:48 AM CDT 05/14/2021 9:30 AM CDT us Hossein Rcahel MD CHEMISTRY ORDERABLES Final Resul t [facility] #1 [place] [address] * EKG 12 LEAD (05/14/2021 8:35 AM CDT) Ventricular Rate BPM EXTERNAL EKG Atrial Rate BPM EXTERNAL EKG P-R Interval 168 ms EXTERNAL EKG QRS Duration 76 ms EXTERNAL EKG Q-T Duration 386 ms EXTERNAL EKG QTC CALCULATION 405 ms EXTERNAL EKG P [place] 53 degrees EXTERNAL EKG R [place] 38 degrees EXTERNAL EKG T [place] 48 degrees EXTERNAL EKG 05/14/2021 8:35 AM CDT Impressions EXTERNAL EKG - 05/15/2021 9:12 AM CDT Sinus rhythm ECG now within normal limits Comparison Summary: Some abnormalities no longer present Summary: Normal ECG Compared with:07/07/2020 12:24 PM Confirmed by Taiwo Lyon [id number] on 05/15/2021 9:12:34 AM Narrative Procedure Note Ame Maravilla MD - 05/15/2021 IMPRESSION: Sinus rhythm ECG now within normal limits Comparison Summary: Some abnormalities no longer present Summary: Normal ECG Compared with:07/07/2020 12:24 PM Confirmed by Taiwo Lyon [id number] on 05/15/2021 9:12:34 AM us Hossein Rachel MD IMG ECG ORDERABLES Final Result EXTERNAL EKG documented in this encounter Visit Diagnoses Diagnosis Pre-op testing- Primary Preoperative examination, unspecified Pre-op testing Preoperative examination, unspecified Pre-op testing Preoperative examination, unspecified documented in this encounter Additional Health Concerns Infection Onset Date Last Indicated Resolved Time COVID - 19 06/19/2021 06/19/2021 07/09/2021 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 COVID - 19 07/15/2022 07/15/2022 07/25/2022 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 COVID - 19 05/11/2024 05/11/2024 05/11/2024 3:23 PM CDT Respiratory Rule-Out 05/11/2024 05/11/2024 024 3:23 PM CDT Assessment Noted Time PHQ-9 Depression Total Score: 0 11/08/19 21 2:00 PM CDT documented as of this encounter Care Teams Plate Embosser Relationship Specialty Start Date End Date Alejandro Edouard MD PCP - General Family Medicine 09/28/18 05/03/24 Aide Andre DO 2 [facility] [place] [address] PCP - General Family Medicine 05/05/24 Tasha Aranda APRN, COUNTER STACKER #2 [place] [address] Nurse Practitioner Advanced Practice Nurse 06/19/22 05/03/24 Tasha Aranda APRN, COUNTER STACKER #2 [place] [address] Nurse Practitioner Advanced Practice Nurse 05/06/24 Cara Royal, [place] Registered Nurse 12/13/24 Simone Blue MD #[address] [address] Consulting Physician Colon and Rectal Surgery 01/06/25 documented as of this encounter
--- OUTSIDE RECORDS SUMMARY | 2025-04-15 10:10 | XMS_ITS | Encounter Summary ---
Author Organization [facility] Address [address] [facility] [place] [address] Phone Care Team Providers Care Bank Vault Custodian Name Role Phone Alejandro Edouard MD Primary Care Provider [phone] Tasha Aranda APRN, BAT CARRIER Unavailable [phone] Aide Andre DO Primary Care Provider [phone] Tasha Aranda APRN, BAT CARRIER Unavailable [phone]- [phone] Cara Royal RN Unavailable Unavailable Simone Blue MD Unavailable Reason for Visit * Reason Comments Medication Refill Encounter Details Date Type Department Care Team (Late st Contact Info) Description 04/23/2023 Refill [facility] - Family Medicine [facility] #2 [place] [address] Alejandro Edouard MD #1 [place] [address] Medication Refill Social History Tobacco Use Types [...] suspected to have Coronavirus/COVID-19? No / Unsure 03/25/2023 1:34 PM CDT documented as of this encounter Miscellaneous Notes * Telephone Encounter - Renetta Conklin RN - 04/24/2023 1:33 PM CDT Images from the original note were not included. Ibuprofen Dispensed Days Supply Quantity Provider Pharmacy IBUPROFEN 800 MG TABS 04/23/2023 30 90 Tablet Alejandro Edouard MD [facility] ... IBUPROFEN 800 MG TABS 03/24/2023 30 90 Tablet Alejandro Edouard MD [facility] ... IBUPROFEN 800 MG TABS 02/21/2023 30 90 Tablet Alejandro Edouard MD [facility] ... documented in this encounter Plan of Treatment Upcoming Encounters Date Type Department Care Team (Late st Contact Info) Description 05/02/2025 11:30 AM CDT Office Visit [facility] - Orthopedic Surgery [facility] #2 [place] [address] Tasha Aranda APRN, BAT CARRIER [address]2 [place] [address] Felicity Boogie MD #[address] [address] 05/05/2025 8:00 AM CDT [facility] 1 [place] [address] Simone Blue MD #[address] [address] 05/05/2025 8:00 AM CDT - 05/05/2025 9:00 AM CDT [facility] [address] [place] [address] Simone Blue MD #[address] [address] EGD 06/10/2025 8:00 AM CDT [facility] - [facility]rology - [place] #2 [place] [address] Tasha Aranda, BAT CARRIER, BAT CARRIER #2 [place] [address] 06/17/2025 8:20 AM CDT Office Visit [facility] Medical Group - Family Medicine - [place] #2 [place] [address] Aide Andre, DO [address] [address] Scheduled Procedures Name Priority Associated Diagnoses Date/Ti [...] Depression Total Score: 0 07/15/20 1:00 PM PROCESSING TALC AND BORATE SUPERVISOR documented as of this encounter Care Teams Bank Vault Custodian Relationship Specialty Start Date End Date Alejandro Edouard MD PCP - General Family Medicine 09/28/18 05/03/24 Aide Andre DO 2 [facility] [address] [place] [address] PCP - General Family Medicine 05/05/24 Tasha Aranda APRN, BAT CARRIER #2 [place] [address] Nurse Practitioner Advanced Practice Nurse 06/19/22 05/03/24 Tasha Aranda BAT CARRIER, BAT CARRIER [address] [place] [address] Nurse Practitioner Advanced Practice Nurse 05/06/24 Cara Royal, RN [place] Registered Nurse 12/13/24 Simone Blue MD #[address] [address] Consulting Physician Colon and Rectal Surgery 01/06/25 documented as of this encounter
--- OUTSIDE RECORDS SUMMARY | 2025-04-15 10:10 | XMS_ITS | Encounter Summary ---
Author Organization [facility] Address [address] [facility] [place] [address] Phone Care Team Providers Care Integration Director Name Role Phone Alejandro Edouard MD Primary Care Provider [phone] Tasha Aranda APRN, CARPENTER APPRENTICE Unavailable [phone] Aide Andre DO Primary Care Provider [phone] Tasha Aranda APRN, CARPENTER APPRENTICE Unavailable [phone]- [phone] Cara Royal RN Unavailable Unavailable Simone Blue MD Unavailable Reason for Visit * Reason Comments Medication Refill Encounter Details Date Type Department Care Team (Late st Contact Info) Description 03/03/[address] [facility] - Family Medicine [facility] #2 [place] [address] Alejandro Edouard MD #1 [place] [address] Medication Refill Social History Tobacco Use Types [...] have Coronavirus / COVID-19? No / Unsure 02/28/2021 9:45 AM CDT documented as of this encounter Miscellaneous Notes * Telephone Encounter - Renetta Conklin RN - 03/05/2021 11:32 AM CDT PRN medication requires review from provider Per nursing clinical judgement, provider to review and approve the medication(s) order(s) if appropriate. Requested Prescriptions Pending Prescriptions Disp Refills albuterol 108 (90 Base) MCG/ACT Aerosol Solution [Pharmacy Med Name: ALBUTEROL HFA*VENT* 90MCG 108 (90 BAS Aerosol] 18 g 0 Sig: INHALE TWO (2) PUFFS BY MOUTH EVERY 4 HOURS NEEDED FOR WHEEZING. Short Acting Inhaled Beta-Agonists Protocol Passed - 03/03/2021 5:53 PM Passed - Visit with relevant provider [...] Description 05/02/2025 11:30 AM CDT Office Visit [facility] Medical [facility] - Orthopedic Surgery - [place] #2 [place] [address] Tasha Aranda APRN, CARPENTER APPRENTICE #2 [facility] [place] [address] Felicity Boogie MD #[address] [address] 05/05/2025 8:00 AM CDT Hospital Encounter [facility] Gi Lab Periop 1 [place] [address] Simone Blue MD #[address] [address] 05/05/2025 8:00 AM CDT - 05/05/2025 9:00 AM CDT Surgery [facility] Gi Lab Periop 1 [place] [address] Simone Blue MD #[address] [address] EGD 06/10/2025 8:00 AM CDT Office Visit [facility] Medical [facility] - Neurology - [place] #2 [place] [address] Tasha Aranda APRN, CARPENTER APPRENTICE #2 [place] [address] 06/17/2025 8:20 AM CDT Office Visit [facility] - Family Medicine - [place] #2 [place] [address] Aide Andre, DO [address] [address] Scheduled Procedures Name Priority Associated Diagnoses Date/Ti [...] 19 06/19/2021 06/19/2021 07/09/2021 12:1 6 AM 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 COVID - 19 07/15/2022 07/15/2022 07/25/2022 12:1 6 AM 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 COVID - 19 05/11/2024 05/11/2024 05/11/2024 3:23 PM CDT Respiratory Rule-Out 05/11/2024 05/11/2024 024 3:23 PM CDT Assessment Noted Time PHQ-9 Depression Total Score: 0 11/08/19 21 2:00 PM CDT documented as of this encounter Care Teams Integration Director Relationship Specialty Start Date End Date Alejandro Edouard MD PCP - General Family Medicine 09/28/18 05/03/24 Aide Andre DO [address] [address] PCP - General Family Medicine 05/05/24 Tasha Aranda APRN, CARPENTER APPRENTICE #2 [place] [address] Nurse Practitioner Advanced Practice Nurse 06/19/22 05/03/24 Tasha Aranda APRN, CARPENTER APPRENTICE #2 [place] [address] Nurse Practitioner Advanced Practice Nurse 05/06/24 Cara Royal, RN [place] Registered Nurse 12/13/24 Simone Blue MD #[address] [address] Consulting Physician Colon and Rectal Surgery 01/06/25 documented as of this encounter
--- OUTSIDE RECORDS SUMMARY | 2025-04-15 10:10 | XMS_ITS | Encounter Summary ---
Author Organization [facility] Address [address] [facility] [place] [address] Phone Care Team Providers Care Cosmetic Assembler Name Role Phone Alejandro Edouard MD Primary Care Provider [phone] Tasha Aranda APRN, BIOLOGICAL PHOTOGRAPHER Unavailable [phone] Aide Andre DO Primary Care Provider Tasha Aranda APRN, BIOLOGICAL PHOTOGRAPHER Unavailable [phone]- [phone] Cara Royal RN Unavailable Unavailable Simone Blue MD Unavailable Reason for Visit * Reason Comments Medication Refill Encounter Details Date Type Department Care Team (Late st Contact Info) Description 01/08/2022 Refill [facility] - Family Medicine [facility] #2 [place] [address] Alejandro Edouard MD #1 [place] [address] Medication Refill Social History Tobacco Use Types [...] Telephone Encounter - Renetta Conklin RN - 01/09/2022 8:59 AM CDT Per nursing clinical judgement, provider to review and approve the medication(s) order(s) if appropriate. Requested Prescriptions Pending Prescriptions Disp Refills ibuprofen (MOTRIN) 800 MG Tablet [Pharmacy Med Name: IBUPROFEN 800 MG TABS 800 Tablet] 90 Tablet 3 Sig: TAKE 1 TABLET BY MOUTH EVERY 8 HOURS NSAIDs Protocol Passed - 01/08/2022 10:38 AM Passed - Normal serum creatinine in past 12 months CREATININE, BLOOD Date Value Ref Range Status 11/17/2021 0.68 0.60 - 1.10 mg/dL Final Passed - Visit with relevant provider in past 12 months or upcoming 90 days Recent Visits Date Type Provider Dept 11/19/21 Office Visit Alejandro Edouard MD [facility] 10/01/21 Office Visit Alejandro Edouard MD [facility] 06/19/21 Office Visit Zhanna Campos APRN, TOOL MARKER [facility] 05/21/21 Office Visit [facility] Showing recent visits within past 365 days and meeting all other requirements Future Appointments No visits were found meeting these conditions. Showing future appointments within next 90 days and meeting all other requirements Passed - No matching NSAID med order in past 45 days No matching medication orders between 11/25/2021 8:59 AM and 01/09/2022 8:59 AM Passed - AST less than 55 or ALT less than 90 in past 12 months SGOT (AST) Date Value Ref Range Status 11/17/2021 43 (H) <=32 U/L Final SGPT (ALT) Date Value Ref Range Status 11/17/2021 23 <=41 U/L Final Passed - HGB greater than 10 or HCT greater than 30 in past 12 months HEMOGLOBIN (HGB) Date Value Ref Range Status 11/17/2021 12.6 12.0 - 15.8 g/dL Final HEMATOCRIT (HCT) Date Value Ref Range Status 11/17/2021 36.9 36.0 - 47.0 % Final documented in this encounter Plan of Treatment Upcoming Encounters Date Type Department Care Team (Late st Contact Info) Description 05/02/2025 11:30 AM CDT Office Visit [facility] - Orthopedic Surgery - [place] #2 [place] [address] Tasha Aranda APRN, [facility] #2 [place] [address] Felicity Boogie MD #[address] [address] 05/05/2025 8:00 AM CDT Hospital Encounter [facility] Gi Lab Periop 1 [place] [address] Simone Blue MD #[address] [address] 05/05/2025 8:00 AM CDT - 05/05/2025 9:00 AM CDT [facility] 1 [place] [address] Simone Blue MD #[address] [address] EGD 06/10/2025 8:00 AM CDT [facility] [place] [facility] [place] [address] Tasha Aranda APRN, BIOLOGICAL PHOTOGRAPHER #2 [place] [address] 06/17/2025 8:20 AM CDT [facility] Visit [facility] - Family [facility] - [place] #2 [place] [address] Aide Andre DO [address] [address] Scheduled Procedures Name Priority Associated Diagnoses Date/Ti [...] 19 07/15/2022 07/15/2022 07/25/2022 12:1 6 AM SERGER COVID - 19 05/11/2024 05/11/2024 05/11/2024 3:23 PM CDT Respiratory Rule-Out 05/11/2024 05/11/2024 024 3:23 PM CDT Assessment Noted Time PHQ-9 Depression Total Score: 0 11/08/19 21 2:00 PM CDT documented as of this encounter Care Teams Cosmetic Assembler Relationship Specialty Start Date End Date Alejandro Edouard MD PCP - General Family Medicine 09/28/18 05/03/24 Aide Andre DO 2 [facility] [address] [address] PCP - General Family Medicine 05/05/24 Tasha Aranda APRN, BIOLOGICAL PHOTOGRAPHER #2 [place] [address] Nurse Practitioner Advanced Practice Nurse 06/19/22 05/03/24 aTsha Aranda APRN, [place] #2 [place] [address] Nurse Practitioner Advanced Practice Nurse 05/06/24 Cara Royal, HEL[place] Registered Nurse 12/13/24 Simone Blue MD #[address] [address] Consulting Physician Colon and Rectal Surgery 01/06/25 documented as of this encounter
--- OUTSIDE RECORDS SUMMARY | 2025-04-15 10:10 | XMS_ITS ---
Author Organization [facility] Address [address] [place] [address] Phone Care Team Providers Care Die Repairer Stamping Name Role Phone Aide Andre DO Primary Care Provider [phone] Tasha Aranda APRN, SENIOR SOFTWARE ARCHITECT Unavailable [phone] Cara Royal RN Unavailable Unavailable Simone Blue MD Unavailable Nurse Clinic Status:Enrolled (Active) Start date:12/13/2024 Enrollment date:12/13/2024 Current support & services provided:Hypertension Management Case Team Name Relationship Phone Cara Royal RN(Responsible Staff) Registered Nurse Continued Care and Services Coordination
--- OUTSIDE RECORDS SUMMARY | 2025-04-15 10:10 | XMS_ITS | Encounter Summary ---
Author Organization [facility] Address [address] [facility] [place] [address] Phone Care Team Providers Care Parts Salvager Name Role Phone Alejandro Edouard MD Primary Care Provider [phone] Tasha Aranda APRN, DICE SPOTTER Unavailable [phone] Aide Andre DO Primary Care Provider Tasha Aranda APRN, DICE SPOTTER Unavailable [phone]- [phone] Cara Royal RN Unavailable Unavailable Simone Blue MD Unavailable Reason for Visit * Reason Comments Medication Refill Encounter Details Date Type Department Care Team (Late st Contact Info) Description 11/07/2020 Refill [facility] - Family Medicine [facility] [address] [place] [address] Alejandro Edouard MD #1 [place] [address] Medication Refill Social History Tobacco Use Types [...] have Coronavirus / COVID-19? No / Unsure 11/07/2020 1:48 PM CDT documented as of this encounter Miscellaneous Notes * Telephone Encounter - Renetta Conklin RN - 11/08/2020 10:32 AM CDT The original prescription was reordered on 11/07/2020 by Alejandro Edouard MD documented in this encounter Plan of Treatment Upcoming Encounters Date Type Department Care Team (Late st Contact Info) Description 05/02/2025 11:30 AM CDT Office Visit [facility] - Orthopedic [facility] [address]2 [place] [address] Tasha Aranda, KATHRYN, DICE SPOTTER [address]2 [place] [address] Felicity Boogie MD #[address] [address] 05/05/2025 8:00 AM CDT Hospital Encounter [facility] [address] [place] [address] Simone Blue MD #[address] [address] 05/05/2025 8:00 AM CDT - 05/05/2025 9:00 AM CDT Surgery [facility] Periop 1 [place] [address] Simone Blue MD #2 [facility] [address] [place] [address] EGD 06/10/2025 8:00 AM CDT Office Visit [facility] - Neurology - [place] #2 [place] [address] Tasha Aranda APRN, DICE SPOTTER #2 [place] [address] 06/17/2025 8:20 AM CDT Office Visit [facility] - Family Medicine - [place] #[address] [place] [address] Aide Andre, DO 2 [facility] [address] [place] [address] Scheduled Procedures Name Priority Associated Diagnoses Date/Ti [...] 19 06/19/2021 06/19/2021 07/09/2021 12: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 CLAY ARTIST COVID - 19 07/15/2022 07/15/2022 07/25/2022 12:1 6 AM CLAY ARTIST COVID - 19 05/11/2024 05/11/2024 05/11/2024 3:23 PM CDT Respiratory Rule-Out 05/11/2024 05/11/2024 024 3:23 PM CDT Assessment Noted Time PHQ-9 Depression Total Score: 0 11/08/19 21 2:00 PM CDT documented as of this encounter Care Teams Parts Salvager Relationship Specialty Start Date End Date Alejandro Edouard MD PCP - General Family Medicine 09/28/18 05/03/24 Aide Andre DO [address] [address] PCP - General Family Medicine 05/05/24 Tasha Aranda APRN, DICE SPOTTER [address]2 [place] [address] Nurse Practitioner Advanced Practice Nurse 06/19/22 05/03/24 Tasha Aranda APRN, DICE SPOTTER #2 [place] [address] Nurse Practitioner Advanced Practice Nurse 05/06/24 Cara Royal, RN [place] Registered Nurse 12/13/24 Simone Blue MD #[address] [address] Consulting Physician Colon and Rectal Surgery 01/06/25 documented as of this encounter
--- OUTSIDE RECORDS SUMMARY | 2025-04-15 10:10 | XMS_ITS | Encounter Summary ---
Author Organization [facility] Address [address] [facility] [place] [address] Phone Care Team Providers Care Learning Coach Name Role Phone Alejandro Edouard MD Primary Care Provider [phone] Tasha Aranda APRN, CITY COUNCIL MEMBER Unavailable [phone] Aide Andre DO Primary Care Provider [phone] Tasha Aranda APRN, CITY COUNCIL MEMBER Unavailable [phone]- [phone] Cara Royal RN Unavailable Unavailable Simone Blue MD Unavailable Reason for Visit * Reason Comments Medication Refill Encounter Details Date Type Department Care Team (Late st Contact Info) Description 10/10/2023 Refill [facility] - Family Medicine [facility] #2 [place] [address] Alejandro Eduoard MD #1 [place] [address] Medication Refill Social History Tobacco Use Types [...] Telephone Encounter - Renetta Conklin RN - 10/10/2023 2:28 PM CST Name from pharmacy: ROSUVASTATIN 40MG TAB 40 Tablet Will file in chart as: rosuvastatin (CRESTOR) 40 MG Tablet The original prescription was discontinued on 05/29/2023 by Alejandro Edouard MD Name from pharmacy: FENOFIBRATE 160 MG TABS 160 Tablet Will file in chart as: fenofibrate 160 MG Tablet The original prescription was discontinued on 05/29/2023 by Alejandro Edouard MD NO GAMING INSPECTOR documented in this encounter Plan of Treatment Upcoming Encounters Date Type Department Care Team (Late st Contact Info) Description 05/02/2025 11:30 AM CDT [facility] Visit [facility] - [facility] #2 [place] [address] Tasha Aranda, POLICY CHANGE CLERKS SUPERVISOR, CITY COUNCIL MEMBER #2 [place] [address] Felicity Boogie MD #[address] [address] 05/05/2025 8:00 AM CDT [facility] 1 [place] [address] Simone Blue MD #[address] [address] 05/05/2025 8:00 AM CDT - 05/05/2025 9:00 AM CDT Surgery [facility] Periop 1 [place] [address] Simone Blue MD #2 [facility] [address] [place] [address] EGD 06/10/2025 8:00 AM CDT Office Visit [facility] - Neurology - [place] #2 [place] [address] Tasha Aranda APRN, CITY COUNCIL MEMBER [address]2 [place] [address] 06/17/2025 8:20 AM CDT Office Visit [facility] - Family Medicine - [place] #2 [place] [address] Aide Andre, DO 2 [facility] [address] [place] [address] Scheduled Procedures Name Priority Associated Diagnoses Date/Ti [...] Total Score: 0 07/15/20 22 1:00 PM CASINO GAMING INSPECTOR documented as of this encounter Care Teams Learning Coach Relationship Specialty Start Date End Date Alejandro Edouard MD PCP - General Family Medicine 09/28/18 05/03/24 Aide Andre DO [address] [address] PCP - General Family Medicine 05/05/24 Tasha Aranda APRN, CITY COUNCIL MEMBER [address] [place] [address] Nurse Practitioner Advanced Practice Nurse 06/19/22 05/03/24 Tasha Aranda APRN, CITY COUNCIL MEMBER [address] [place] [address] Nurse Practitioner Advanced Practice Nurse 05/06/24 Cara Royal, [place] Registered Nurse 12/13/24 Simone Blue MD #[address] [address] Consulting Physician Colon and Rectal Surgery 01/06/25 documented as of this encounter
--- NOTE | 2025-04-15 10:38 | ED_ITS ---
HPI - URI/Sore Throat General Chief Complaint: Skin/Abscess/Foreign Body Stated Complaint: fever/cough/spot on leg Time Seen by Provider: 04/15/25 10:39 Source: patient, RN notes reviewed and old records reviewed Mode of arrival: ambulatory Limitations: no limitations History of Present Illness HPI Narrative: 64-year-old female presents to the [facility] with complaints of a cough for 5 days. States that a Friday and Friday had a fever. Also concern for a red area that she reports as a bug bite on Friday, has increased in redness. No drainage. Has taken oeei-zqy-josbloh cold medication. Has not used her albuterol in 2 days. States he has a history of asthma. On the red area has been pouring peroxide on it Related Data Home Medications ?Medication ?Instructions ?Recorded ?Confirmed ?Last Taken ?Type albuterol sulfate 90 mcg/actuation inhalation 06/11/24 Unknown History aerosol inhaler diclofenac sodium 1 % topical gel topical 06/11/24 Unknown History (Voltaren Arthritis Pain) fluticasone propionate 50 intranasal 06/11/24 Unknown History mcg/actuation nasal spray,suspension ibuprofen 800 mg tablet mg 06/11/24 Unknown History magnesium 200 mg tablet 200 mg PO DAILY 06/11/24 Unknown History metoprolol succinate 25 mg capsule mg 06/11/24 Unknow n History sprinkle, ext. release 24 hr pantoprazole 40 mg tablet,delayed mg PO 06/11/24 Unkn own History release topiramate 25 mg tablet mg 06/11/24 Unknown History benazepril 20 1 tablet PO DAILY 04/15/25 0 04/15/25 Unknown History mg-hydrochlorothiazide 12.5 mg tablet Allergies Allergy/AdvReac Type Severity Reaction Status Date / Time Sulfa (Sulfonamide Allergy Unknown Verified 04/15/25 10:19 Antibiotics) Review of Systems 2 Review of Systems: All systems reviewed & are unremarkable except as noted in HPI and below Constitutional: Constitutional: Reports as per HPI, Reports no additional constitutional complaints and Reports fever(s) ENT: Reports system reviewed and no additional complaints, except as documented Cardiovascular: Cardiovascular: Reports no additional cardiovascular complaints, Denies chest pain and Denies dyspnea Respiratory: Respiratory: Reports as per HPI, Denies chest congestion, Reports cough and Denies dyspnea Musculoskeletal: Musculoskeletal: Reports no additional musculoskeletal complaints Integumentary/Breasts: Skin/Breast: Reports as per HPI and Reports lesions PMFSH Comments At the time of my signature, I reviewed and agree with the nursing past medical, surgical, social, and family history. There is no relevant family history pertinent to the patient complaint. Exam 2 Const: General: cooperative, healthy appearing, comfortable, no acute distress, well developed, alert and well nourished Nutritional Appearance: w ell nourished Orientation/consciousness: patient oriented x3 Limitations: no limitations HENMT: Head: normal to inspection Ears: hearing grossly normal bilaterally, external ears normal, TM's normal bilaterally, EAC's normal, mastoids normal and no periauricular adenopathy Mouth: Yes Normal oral and palatal mucosa present, Yes lip normal, Yes tongue normal and Yes moist mucous membranes T hroat: posterior oropharynx normal, uvula midline and no uvular edema Eyes: General: appearance normal, both eyes and all related structures A lignment and Position: alignment normal Neck: Neck: normal visual inspection, full ROM, no lymphadenopathy and no meningeal signs Chest: Chest palpation & inspection: normal inspection of the chest Resp: Effort & Inspection: normal respiratory effort and able to speak in complete sentences Auscultation: clear to auscultation bilaterally, no crackles, no rales, no rhonchi and no wheezes Cardio: Rate: regular rate Skin: General skin exam: normal color and no rashes or lesions noted Full body images: 1. 3 x 4 pink area, warm to touch, not blanchable, scab center. No fluctuance or drainage noted Neuro: General: patient oriented x3, gait normal, moves all extremities and no meningeal signs Cognition (Neuro): normal cognition Speech: normal speech Gait exam (Neuro): Normal gait present Extrem: General: normal to inspection, full ROM, capillary refill normal and normal gait Psych: Appearance: grossly normal and well kempt Mental Status: mental status grossly normal Speech and movement: Normal speech and movement present and Clear speech present Affect: normal affect Attitude: cooperative Course Course Level of Care: Express Care Visit Vital Signs Vital signs: Vital Signs Temperature 97.9 F 04/15/25 10:10 Pulse Rate 70 04/15/25 10:10 Respiratory Rate 16 04/15/25 10:10 Blood Pressure 133/70 04/15/25 10:10 Pulse Oximetry 100 04/15/25 10:10 Oxygen Delivery Room Air 04/15/25 10:10 Temperature 97.9 F 04/15/25 10:10 Pulse Rate 70 04/15/25 10:10 Respiratory Rate 16 04/15/25 10:10 Blood Pressure 133/70 04/15/25 10:10 Pulse Oximetry 100 04/15/25 10:10 Oxygen Delivery Room Air 04/15/25 10:10 Reviewed MDM - URI/Sore Throat MDM Narrative Medical decision making narrative: Patient sitting in exam room. Patient is nontoxic, vitals stable. Patient presents with URI symptoms, redness to the leg. Flu and COVID are negative in clinic. Patient appropriate for outpatient treatment with bronchitis and cellulitis. Will cover with 1 antibiotic, doxycycline. Patient reports having enough albuterol at home Discharge instructions reviewed with patient, as well as provided in writing per nursing staff. The instructions also include specific and strict return/GO TO THE ER as well as f/u information. All questions have been answered, and the patient deny any further questions with discharge and discharge plan. Some parts of this dictation were generated by voice recognition software and may contain typographical and/or grammatical inaccuracies. Differential Diagnosis Differential diagnosis: Likely upper respiratory infection, sinusitis, viral infection, bronchitis and other (Abscess, cellulitis) Lab Data Labs: Lab Results 04/15/25 Range/Units 10:39 POC Influenza A Ag Negative (Negative) POC Influenza B Ag Negative (Negative) POC SARS CoV-2 Ag Negative (Negative) Reviewed Critical Care Time Critical Care Time Critical Care Time: No Discharge Plan Discharge Clinical Impression: Bronchitis Cellulitis Qualifiers: Site of cellulitis: extremity Site of cellulitis of extremity: lower extremity Laterality: left Qualified Code(s): L03.116 - Cellulitis of left lower limb Patient Disposition: Home Condition: Stable Instructions: Antibiotic Form, Cellulitis (ED), Acute Bronchitis (ED) Additional Instructions: Only wash the leg with warm soapy water, pat dry. Do not use peroxide. You can apply bacitracin after washing Your rapid COVID test were negative Your rapid flu test was negative For your cough use your albuterol 3 times a day for the next 3 days. It is very important to treat your symptoms. Drink plenty of water, Gatorade, Pedialyte, ice pops or Jell-O. -Alternate Tylenol and Motrin per package directions for fever or pain. You can alternate every 4 hours -Antihistamine medication such as Zyrtec/Claritin/Arlene during the day can help improve symptoms. -doing daily nasal irrigations can help relieve pressure your sinuses. Things like a Neti pot -Use Flonase twice a day for 5 days then daily to help reduce the inflammation and dry up your sinuses. -You can also use Mucinex. Be sure to drink plenty of water with this medication at least 8 ounces with every dose and it is important to drink 8 to 10 glasses of water per day. Water is a natural decongestant -Eat and drink things that are easy to swallow, like tea or soup, or popsicles. -Oral rinses such as: Salt water gargles and/or may use topical anesthetic (eg. Chloraseptic spray) or lozenges to relieve dryness or throat pain). -Frequent hand washing or hand operations architect is one of the best ways to prevent spread of infection. -Using a vaporizer or humidifier at night will also help thin secretions and help with coughing up phlegm. -Follow up with primary care provider in 7-10 days if condition is not improving - For new or worsening symptoms go directly to the nearest ER Patient Language: Turkmen Prescriptions: New doxycycline monohydrate 100 mg tablet 100 mg PO BID Qty: 14 0RF No Action ibuprofen 800 mg tablet topiramate 25 mg tablet pantoprazole 40 mg tablet,delayed release (DR/EC) PO albuterol sulfate 90 mcg/actuation HFA aerosol inhaler INHALATION diclofenac sodium [Voltaren Arthritis Pain] 1 % Gel TOPICAL fluticasone propionate 50 mcg/actuation spray,suspension INTRANASAL magnesium 200 mg Tablet 200 mg PO DAILY metoprolol succinate 25 mg Capsule,Sprinkle,Er 24hr benazepril-hydrochlorothiazide 20-12.5 mg tablet 1 tablet PO DAILY Follow-up/Referrals: Thai,Aide Oneal DO [Primary Care Provider, Unknown] - 1 Week Clinical Impression: Cellulitis; Bronchitis Time of Disposition: 11:00
[2025-04-15 10:41] LABS: EDCOVIDSCREEN Negative (Negative); EDINFLUASCREEN Negative (Negative); EDINFLUBSCREEN Negative (Negative)
== END 2025-04-15 11:04 | disposition home or self-care (01) ==
PROVIDERS: Emergency Provider Nurse Practitioner; PCP Student in an Organized Health Care Education/Training Program
DX: J40 Bronchitis, not specified as acute or chronic (principal); L03.116 Cellulitis of left lower limb; Z20.822 Contact with and (suspected) exposure to COVID-19
CPT/HCPCS: 87426; 87804; 99213; G0463

== ENCOUNTER 2025-05-24 11:37 | Emergency (ER) | payer MEDICARE, MEDICAID, SELFPAY ==
[2025-05-24 11:41] VITALS: BP 129/68; PULSE 62; RESP 16; TEMP 36.5; O2SAT 100
--- NOTE | 2025-05-24 11:53 | ED_ITS ---
HPI - General Adult General Chief complaint: Ear Stated complaint: left ear Pain Source: patient Mode of arrival: ambulatory Limitations: no limitations History of Present Illness HPI narrative: Patient presents for evaluation of left ear pain. She initially experienced itching in the left ear three days ago, which progressed into pain. She now feels like she has swelling in the canal with muffled hearing. She denies any drainage from the ear he lower right-sided otalgia. No fever, chills, sinus congestion, sore throat, cough, shortness of breath. She does not smoke or vape. Related Data Home Medications ?Medication ?Instructions ?Recorded ?Confirmed ?Last Taken ?Type albuterol sulfate 90 mcg/actuation inhalation 06/11/24 Unknown History aerosol inhaler diclofenac sodium 1 % topical gel topical 06/11/24 Unknown History (Voltaren Arthritis Pain) fluticasone propionate 50 intranasal 06/11/24 Unknown History mcg/actuation nasal spray,suspension ibuprofen 800 mg tablet mg 06/11/24 Unknown History magnesium 200 mg tablet 200 mg PO DAILY 06/11/24 Unknown History metoprolol succinate 25 mg capsule mg 06/11/24 Unknow n History sprinkle, ext. release 24 hr pantoprazole 40 mg tablet,delayed mg PO 06/11/24 Unkn own History release topiramate 25 mg tablet mg 06/11/24 Unknown History benazepril 20 1 tablet PO DAILY 04/15/25 0 04/15/25 Unknown History mg-hydrochlorothiazide 12.5 mg tablet Allergies Allergy/AdvReac Type Severity Reaction Status Date / Time amlodipine Allergy Intermediate Unknown Verified 05/24/25 11:50 Sulfa (Sulfonamide Allergy Unknown Verified 05/24/25 11:50 Antibiotics) Review of Systems Review of Systems: CONSTITUTIONAL: Denies fever, chills, or sweats. EYES: Denies visual changes, redness, or discharge. ENT: Reports left sided otalgia with swelling in the canal and muffled hearing. Denies right sided otalgia, sore throat, sinus congestion and drainage CARDIOVASCULAR: Denies chest pain, palpitations, or edema. RESPIRATORY: Denies cough or dyspnea. GASTROINTESTINAL: Denies abdominal pain, nausea, vomiting, or diarrhea. GENITOURINARY: Denies dysuria or hematuria. SKIN: Denies rash or itching. MUSCULOSKELETAL: Denies back pain, joint pain, or myalgia. NEUROLOGIC: Denies headache, numbness, dizziness, or weakness. PSYCHIATRIC: Denies anxiety or depression. [facility] Past Medical History Medical History GERD (gastroesophageal reflux disease) Hypertension Surgical History Surgical History No pertinent past surgical history Family History Family History Mother Family history non-contributory Social History Social History Smoking status: Never smoker Substance use: never Gender identity (if verbalized by the patient): Female Spiritual care concerns: No Exam Narrative: GENERAL: Well-appearing, well-nourished, and in no acute distress. HEAD: Normocephalic, atraumatic. EYES: PERRLA and EOMI. ENT: Nares clear, no rhinorrhea or epistaxis. Mucous membranes moist. Oropharynx without tonsillar hypertrophy exudate or other lesions. Left ear canal is erythematous and edematous. Left tympanic membrane is erythematous and bulging NECK: Supple. No adenopathy or masses. No carotid bruits or JVD CHEST: Clear to auscultation. No respiratory distress. No wheezes rales or rhonchi HEART: Regular rate and rhythm. No murmur heard. Normal peripheral pulses. ABDOMEN: Soft, nontender, nondistended, normal active bowel sounds. EXTREMITIES: Normal range of motion. No edema. SKIN: Warm, dry, no rash. NEURO: No focal deficits. Alert and oriented x3. PSYCH: Normal mood and affect. Course Course Emergency Course: This is a 64 year female who presented for evaluation of left ear pain. She has evidence of otitis media and otitis externa exam. Will discharge with Augmentin and ofloxacin. Follow up with primary provider. Go to the ER for worsening symptoms. Pt in agreement with plan of care. Level of Care: Express Care Visit Vital Signs Vital signs: Vital Signs Temperature 36.5 C 05/24/25 11:41 Pulse Rate 62 05/24/25 11:41 Respiratory Rate 16 05/24/25 11:41 Blood Pressure 129/68 05/24/25 11:41 Pulse Oximetry 100 05/24/25 11:41 Oxygen Delivery Room Air 05/24/25 11:41 Temperature 36.5 C 05/24/25 11:41 Pulse Rate 62 05/24/25 11:41 Respiratory Rate 16 05/24/25 11:41 Blood Pressure 129/68 05/24/25 11:41 Pulse Oximetry 100 05/24/25 11:41 Oxygen Delivery Room Air 05/24/25 11:41 Medical Decision Making Vital Signs Vital Signs: Vital Signs Temperature 36.5 C 05/24/25 11:41 Pulse Rate 62 05/24/25 11:41 Respiratory Rate 16 05/24/25 11:41 Blood Pressure 129/68 05/24/25 11:41 Pulse Oximetry 100 05/24/25 11:41 Oxygen Delivery Room Air 05/24/25 11:41 Temperature 36.5 C 05/24/25 11:41 Pulse Rate 62 05/24/25 11:41 Respiratory Rate 16 05/24/25 11:41 Blood Pressure 129/68 05/24/25 11:41 Pulse Oximetry 100 05/24/25 11:41 Oxygen Delivery Room Air 05/24/25 11:41 Discharge Plan Discharge Clinical Impression: Acute left otitis media, Otitis externa Patient Disposition: Home Condition: Stable Instructions: Antibiotic Form, Ear Infection (ED) Patient Language: Georgian Prescriptions: New amoxicillin-pot clavulanate 875-125 mg tablet 1 tablet PO Q12H Qty: 20 0RF ofloxacin 0.3 % drops 10 drp EACH EAR DAILY 7 Days Qty: 10 0RF No Action ibuprofen 800 mg tablet topiramate 25 mg tablet pantoprazole 40 mg tablet,delayed release (DR/EC) PO albuterol sulfate 90 mcg/actuation HFA aerosol inhaler INHALATION diclofenac sodium [Voltaren Arthritis Pain] 1 % Gel TOPICAL fluticasone propionate 50 mcg/actuation spray,suspension INTRANASAL magnesium 200 mg Tablet 200 mg PO DAILY metoprolol succinate 25 mg Capsule,Sprinkle,Er 24hr benazepril-hydrochlorothiazide 20-12.5 mg tablet 1 tablet PO DAILY doxycycline monohydrate 100 mg tablet 100 mg PO BID Qty: 14 0RF Follow-up/Referrals: Thai,Aide Oneal DO [Primary Care Provider, Unknown] Time of Disposition: 11:50
--- OUTSIDE RECORDS SUMMARY | 2025-05-24 12:55 | XMS_ITS | Encounter Summary ---
Author Organization [facility] Address [address] [facility] [place] [address] Phone Care Team Providers Care News Intern Name Role Phone ThaiAide philip Primary Care Provider [phone] Tasha Aranda APRN, BOTTOM TURNER Unavailable [phone] Cara Royal RN Unavailable Unavailable Simone Blue MD Unavailable Encounter Details Date Type Department Care Team (Late st Contact Info) Description 05/18/2025 Results Follow-Up [facility] - Family Medicine [facility] [address] [place] [id number] Belle Buck APRN, APARTMENT LEASING AGENT [address] [place] [address] VITAMIN D, 25 HYDROXY TOTAL Social History Tobacco Use Types Packs/Day Years Used Date Smoking Tobacco: Never Smokeless Tobacco: Never Alcohol Use Standard Drinks/Week Comments Not Currently 6 (1 standard drink = 0.6 oz pure alcohol) drank heavy, now on a weekend. Quit 02/14/25 [facility] Utilities Answer Date Recorded In the past 12 months has [employer], gas, oil, or water [employer] threatened to shut off services in your [...] often do you attend chur ch or muslim services? Patient declined 12/28/2024 Do you belong to any clubs o r organizations such as islam groups, unions, fraternal or athletic groups, or [...] Total Score - Questions 1-9 0 08/18 [facility] - Occupational Stress [...] in a nursing home (including now)? No 12/04/2023 Housing Stability Vital Sign Answer Clive e Recorded In the last 12 months, was t here a time when you were not able to pay the mortgage or rent on time? No 12/28/2024 Number of Times Moved in the Last Year Not on fi le 12/28/2024 At any time in the past 12 m [facility], were you homeless or living in a nursing home (including now)? No 12/28/2024 AUDIT-C Answer Date [...] Care Team (Late st Contact Info) Description 06/10/2025 8:00 AM CDT Office Visit [facility] - Neurology [facility] [address] [place] [address] Tasha Aranda, GYMNASTICS COACH OR INSTRUCTOR, BOTTOM TURNER [address] [place] [address] 06/17/2025 8:20 AM CDT [facility] Family [facility] - Ward [address] [place] [address] Aide Andre, DO [address] [place] [address] documented as of this encounter Goals Goal Patient Goal Type Associated Problems Recent Progress Patient-Stated? Author Blood Pressure < 140/90 Blood Pressure 105/60(04/18 8:35 AM CDT) No Cara Royal RN Become [...] patients manage type 2 diabetes Care Plan [facility] TYPE 2 DIABETES CONCERN No Aide Andre, DO Help patient manage blood glucose Care Plan [facility] TYPE 2 DIABETES NO MEDICATION PATTERN CONCERN No Aide Andre, DO Help patient manage hypertension Care Plan [facility] HYPERTENSION CONCERN (PATIENT ON HIGH BLOOD PRESSURE [...] Plan Personal Safety (Intimate Partner Violence) (Wellness) No Patricia Schofield RN Note: Evidence-based guidance: Allow patient time [...] patient has safety plan. Facilitate entry into nursing home or other safe location when patient expresses [...] Identify tobacco use status including cigarette, cigar, lqgp-enat-snb, dissolvable, hookah or smokeless tobacco, nicotine gels, [...] Note: Evidence-based guidance: Assess health literacy using [place] [employer] recommended questions or standardized tools. [...] the community such as library, continuing education, Liberian as a second language class, support group or peer health women's basketball coach. Provide educational materials that are written in plain language (3rd to 5th grade reading level) and include icons, pictures and tables; provide essential information first. Notes: Medication Adherence Maintained Care Plan Medication Adherence (Wellness) Patricia Arrieta RN Note: Evidence-based guidance: Develop a complete and accurate medication list including those prescribed and bhje-sgj-ywawmqx, those taken only occasionally and those not [...] Notes: Hypertension Monitored Care Plan Hypertension (Hypertension) No Patricia Schofield RN Note: Evidence-based guidance: Promote initial use [...] Maximized Care Plan Resistant Hypertension (Hypertension) Patricia Arrieta, RN Note: Evidence-based guidance: Assess patient response [...] relieve obstructive sleep apnea when present. Notes: documented as of this encounter Visit Diagnoses Not on filedocumented in this encounter Additional Health Concerns Active Problems Noted Date Diagnosed Date [facility] TYPE 2 DIABETES CONCERN 12/06/2024 [facility] TYPE 2 DIABETES NO MEDICATION PATTERN DANILO RN 12/06/2024 [facility] HYPERTENSION CONCERN (P ATIENT ON HIGH BLOOD [...] Progression (Hypertension) 04/07/2025 Resistant Hypertension (Hypertension) 04/07/2025 Assessment Noted Time PHQ-9 Depression Total Score: 0 09/02/19 25 2:01 PM ACCOUNTING PRACTICE MANAGER documented as of this encounter Care Teams News Intern Relationship Specialty Start Date End Date Aide Andre DO [address] [place] [address] PCP - General Family Medicine 05/05/24 Tasha Aranda, GYMNASTICS COACH OR INSTRUCTOR, BOTTOM TURNER [address] [place] [address] Nurse Practitioner Advanced Practice Nurse 05/06/24 Cara Royal RN ID Registered Nurse 12/13/24 Simone Blue MD #[address] [address] Consulting Physician Colon and Rectal Surgery 01/06/25 documented as of this encounter
--- OUTSIDE RECORDS SUMMARY | 2025-05-24 12:55 | XMS_ITS ---
Care Plan Created on: May 24, 2025 Linda Snider : 1960 Sex: Female Author Organization [facility] Address [address] [place] [address] Phone Care Team Providers Care Line Service Supervisor Name Role Phone ThaiAide philip Ro CRISTOBAL Primary Care Provider [phone] Tasha Aranda SHIP KEEPER, DOPE AND FABRIC WORKER Unavailable [phone] Cara Royal RN Unavailable Unavailable Simone Blue [...] Concerns Active Problems Noted Date Diagnosed Date [facility] TYPE 2 DIABETES CONCERN 12/06/2024 [facility] TYPE 2 DIABETES NO MEDICATION PATTERN DANILO RN 12/06/2024 [facility] HYPERTENSION CONCERN (P ATIENT ON HIGH BLOOD [...] patients manage type 2 diabetes Care Plan [facility] TYPE 2 DIABETES CONCERN No Aide Andre, DO Help patient manage blood glucose Care Plan [facility] TYPE 2 DIABETES NO MEDICATION PATTERN CONCERN No Aide Andre, DO Help patient manage hypertension Care Plan [facility] HYPERTENSION CONCERN (PATIENT ON HIGH BLOOD PRESSURE [...] patient has safety plan. Facilitate entry into [facility] or other safe location when patient expresses [...] Identify tobacco use status including cigarette, cigar, jxyp-socz-sid, dissolvable, hookah or smokeless tobacco, nicotine gels, [...] Note: Evidence-based guidance: Assess health literacy using [place] [employer] recommended questions or standardized tools. [...] the community such as library, continuing education, Tunisian as a second language class, support group or peer health flag football coach. Provide educational materials that are written in plain language (3rd to 5th grade reading level) and include icons, pictures and tables; provide essential information first. Notes: Medication Adherence Maintained Care Plan Medication Adherence (Wellness) Patricia Arrieta RN Note: Evidence-based guidance: Develop a complete and accurate medication list including those prescribed and nwfh-znm-brbfnxr, those taken only occasionally and those not [...] Activities: {Facilitate Adherence to Lifestyle Change (Clinical) (Hypertension):09668} Notes: Alleviate Barriers to Hypertension Treatment 04/07/2025 Note:Care Management Activities: {Alleviate Barriers to Hypertension Treatment (Clinical) (Hypertension):17822} Notes: Identify and Monitor Blood Pressure Elevation 04/07/2025 Note:Care Management Activities: {Identify and Monitor Blood Pressure Elevation (Clinical) (Hypertension):84867} Notes: Identify and Reduce Risk to Safety 04/07/2025 Note:Care Management Activities: {Identify and Reduce Risk to Safety (Clinical) (Wellness):04232} Notes: Facilitate Optimal Oral Health 04/07/2025 Note:Care Management Activities: {Facilitate Optimal Oral Health (Clinical) (Wellness):53751} Notes: Identify and Promote Change to Drug Misuse 04/07/2025 Note:Care Management Activities: {Identify and Promote Change to Drug Misuse (Clinical) (Wellness):86717} Notes: Identify and Promote Change to Alcohol Misuse 04/07/2025 Note:Care Management Activities: {Identify and Promote Change to Alcohol Misuse (Clinical) (Wellness):78229} Notes: Alleviate Barriers to Healthy Eating 04/07/2025 Note:Care Management Activities: {Alleviate Barriers to Healthy Eating (Clinical) (Wellness):33973} Notes: Identify and Optimize Mental Processes 04/07/2025 Note:Care Management Activities: {Identify and Optimize Mental Processes (Clinical) (Wellness):80380} Notes: Optimize Medication Use 04/07/2025 Note:Care Management Activities: {Optimize Medication Use (Clinical) (Wellness):27349} Notes: Identify Deficit and Optimize Health Literacy 04/07/2025 Note:Care Management Activities: {Identify Deficit and Optimize Health Literacy (Clinical) (Wellness):51704} Notes: Promote Smoking Cessation 04/07/2025 Note:Care Management Activities: {Promote Smoking Cessation (Clinical) (Wellness):29618} Notes: Promote Sexual Health 04/07/2025 Note:Care Management Activities: {Promote Sexual Health (Clinical) (Wellness):74722} Notes: Identify Risk and Plan for Personal Safety (Intimate Partner Violence) 04/07/2025 Note:Care Management Activities: {Identify Risk and Plan for Personal Safety (Intimate Partner Violence) (Clinical) (Wellness):74034} Notes: Alleviate Barriers to Increasing Activity Level 04/07/2025 Note:Care Management Activities: {Alleviate Barriers to Increasing Activity Level (Clinical) (Wellness):35861} Notes: Related Goals and Interventions Goal Associated [...] to Drug Misuse Oral Health Maintained Facilitate [place] Oral Health Home and Family Safety Maintained Identi fy and Reduce Risk to Safety Hypertension Monitored Identify and Christina tor Blood Pressure Elevation Disease Progression Prevented or Minimiz ed Alleviate Barriers to Hypertension Treatment Response to Treatment Maximized Facilita te Adherence to Lifestyle Change
--- OUTSIDE RECORDS SUMMARY | 2025-05-24 12:55 | XMS_ITS | Encounter Summary ---
Author Organization [facility] Address [address] [place] [address] Care Team Providers Care Battalion Fire Chief Name Role Phone Alejandro Edouard MD Primary Care Provider [phone] Encounter Details Date Type Department Care Team (Late st Contact Info) Description 03/11/2019 Telephone [facility] [address] [place] [address] Rolly Castro MD [address] [address] Social History Tobacco Use Types [...] on filedocumented in this encounter Care Teams Battalion Fire Chief Relationship Specialty Start Date End Date Alejandro Edouard MD PCP - General 12/01/18 documented as of this encounter
--- OUTSIDE RECORDS SUMMARY | 2025-05-24 12:55 | XMS_ITS | Encounter Summary ---
Author Organization [facility] Address [address] [facility] [place] [address] Phone Care Team Providers Care Brim Edge Trimmer Name Role Phone Alejandro Edouard MD Primary Care Provider [phone] Tasha Aranda APRN, RADIOLOGY INTERVENTIONAL PHYSICIAN Unavailable [phone] Aide Andre DO Primary Care Provider Tsaha Aranda APRN, RADIOLOGY INTERVENTIONAL PHYSICIAN Unavailable [phone] Cara Royal RN Unavailable Unavailable Simone Blue MD Unavailable Reason for Visit * Reason Comments Medication Refill Encounter Details Date Type Department Care Team (Late st Contact Info) Description 10/23/2022 Refill [facility] - Family Medicine [facility] [address] [place] [address] Alejandro Edouard MD [address] [place] [address] Medication Refill Social History Tobacco Use Types [...] Kristin Salazar RN - 10/24/2022 8:16 AM MACHINE CONTAINER WASHER Per nursing clinical judgement, provider to review [...] Provider Dept 07/15/22 Office Visit Umm Pascal, HOP PICKER, HOSPICE CASE MANAGER [facility] 05/21/22 Office Visit Alejandro Edouard MD [facility] 11/19/21 Office Visit Alejandro Edouard MD [facility] Showing recent visits within past 365 days and meeting all other requirements Future Appointments Date Type Provider Dept 11/22/22 Appointment [facility] Showing future appointments within next 90 days and meeting all other requirements INE CONTAINER WASHER documented in this encounter Plan of Treatment Upcoming Encounters Date Type Department Care Team (Late st Contact Info) Description 06/10/2025 8:00 AM CDT Office Visit [facility] - Neurology - [place] [address] [place] [phone] Tasha Aranda APRN, RADIOLOGY INTERVENTIONAL PHYSICIAN [address] [place] [address] 06/17/2025 8:20 AM CDT Office Visit [facility] [address] [place] [address] Aide Andre DO [address] [address] documented as of this encounter Visit Diagnoses Not on filedocumented in this encounter Additional Health Concerns Infection Onset Date Last Indicated Resolved Time COVID - 19 05/11/2024 05/11/2024 05/11/2024 3:23 PM CDT Respiratory Rule-Out 05/11/2024 05/11/2024 024 3:23 PM CDT Assessment Noted Time PHQ-9 Depression Total Score: 0 07/15/20 22 1:00 PM MACHINE CONTAINER WASHER documented as of this encounter Care Teams Brim Edge Trimmer Relationship Specialty Start Date End Date Alejandro Edouard MD PCP - General Family Medicine 09/28/18 05/03/24 Aide Andre DO [address] [address] PCP - General Family Medicine 05/05/24 Tasha Aranda APRN, RADIOLOGY INTERVENTIONAL PHYSICIAN [address] [place] [address] Nurse Practitioner Advanced Practice Nurse 06/19/22 05/03/24 Tasha Aranda APRN, RADIOLOGY INTERVENTIONAL PHYSICIAN [address] [place] [address] Nurse Practitioner Advanced Practice Nurse 05/06/[address] Registered Nurse 12/13/24 Simone Blue MD #[address] [address] Consulting Physician Colon and Rectal Surgery 01/06/25 documented as of this encounter
--- OUTSIDE RECORDS SUMMARY | 2025-05-24 12:55 | XMS_ITS | Encounter Summary ---
Author Organization [facility] Address [address] [facility] [place] [address] Phone Care Team Providers Care Senior Adults Director Name Role Phone Aide Andre DO Primary Care Provider Tasha Aranda APRN, STUDENT SERVICES VICE PRESIDENT Unavailable [phone] Cara Royal RN Unavailable Unavailable Simone Blue MD Unavailable Reason for Visit * Reason Onset Date Comments Medication Refill 05/23/2025 Encounter Details Date Type Department Care Team (Late st Contact Info) Description 05/23/2025 Refill [facility] Medical [facility] - Family Medicine [facility] [address] [place] [address] Aide Andre, DO [address] [address] Medication Refill Social History Tobacco Use Types Packs/Day Years Used Date Smoking Tobacco: Never Smokeless Tobacco: Never Alcohol Use Standard Drinks/Week Comments Not Currently 6 (1 standard drink = 0.6 oz pure alcohol) drank heavy, now on a weekend. Quit 02/14/25 [facility] Utilities Answer Date Recorded In the past 12 months has [employer], gas, oil, or water company threatened to [...] often do you attend chur ch or baptist services? Patient declined 12/28/2024 Do you belong to any clubs o r organizations such as yarsanism groups, unions, fraternal or athletic groups, or [...] Total Score - Questions 1-9 0 08/18 [facility] - Occupational Stress Questionnaire Answer Date Recorded [...] in a mcc (including now)? No 12/04/2023 Housing Stability Vital Sign Answer Clive e Recorded In the last 12 months, was t here a time when you were not able to pay the mortgage or rent on time? No 12/28/2024 Number of Times Moved in the Last Year Not on fi le 12/28/2024 At any time in the past 12 m [facility], were you homeless or living in a mcc (including now)? No 12/28/2024 AUDIT-C Answer Date [...] Telephone Encounter - Renetta Conklin RN - 05/24/2025 9:27 AM CDT Per nursing clinical judgement, provider to review and approve the medication(s) order(s) if appropriate. Requested Prescriptions Pending Prescriptions Disp Refills metoprolol Succinate (TOPROL-XL) 25 MG TABLET SR 24 HR 30 Tablet 8 Sig: Take 1 Tablet by mouth daily. A.M. medication Beta-Blockers Protocol Passed - 05/24/2025 9:27 AM Passed - BP on record in the past year Clinician-entered: BP Readings from Last 3 Encounters: 05/05/25 105/60 03/31/25 123/72 03/17/25 140/80 Patient-entered: Systolic: (Patient-Rptd) 160 Diastolic: (!) (Patient-Rptd) 100 (Abnormal, larger than the maximum normal value.) Passed - Visit with relevant provider in past 12 months or upcoming 90 days Recent Visits Date Type Provider Dept 03/17/25 Office Visit Beka Meier MD [facility] 02/07/25 Office Visit Aide Andre, [facility] 11/29/24 Office Visit Beka Meier MD [facility] 09/02/24 Office Visit Steve yS APRN, HOT ROLL INSPECTOR [facility] Showing recent visits within past 365 days and meeting all other requirements Future Appointments Date Type Provider Dept 06/17/25 Appointment Aide Andre, [facility] Showing future appointments within next 90 days and meeting all other requirements * Telephone Encounter - Ryann Ruiz MA - 05/23/2025 11:06 AM CDT [facility]: Metoprolol Er 25 mg tabs documented in this encounter Plan of Treatment Upcoming Encounters Date Type Department Care Team (Late st Contact Info) Description 06/10/2025 8:00 AM CDT Office Visit [facility] - Neurology - [place] [address] [place] [address] Tasha Aranda APRN, STUDENT SERVICES VICE PRESIDENT [address] [place] [address] 06/17/2025 8:20 AM CDT Office Visit [facility] Medical [facility] - Family [facility] [address] [place] [address] Aide Andre, DO [address] [place] [address] documented as of this encounter Goals Goal [...] patients manage type 2 diabetes Care Plan [facility] TYPE 2 DIABETES CONCERN No Aide Andre, DO Help patient manage blood glucose Care Plan [facility] TYPE 2 DIABETES NO MEDICATION PATTERN CONCERN No Aide Andre, DO Help patient manage hypertension Care Plan [facility] HYPERTENSION CONCERN (PATIENT ON HIGH BLOOD [...] patient has safety plan. Facilitate entry into mcc or other safe location when patient expresses [...] Identify tobacco use status including cigarette, cigar, wnbo-lfvo-dml, dissolvable, hookah or smokeless tobacco, nicotine gels, [...] Note: Evidence-based guidance: Assess health literacy using [place] [employer] recommended questions or standardized tools. [...] the community such as library, continuing education, Gambian as a second language class, support group or peer health men's basketball coach. Provide educational materials that are written in plain language (3rd to 5th grade reading level) and include icons, pictures and tables; provide essential information first. Notes: Medication Adherence Maintained Care Plan Medication Adherence (Wellness) Patricia Arrieta RN Note: Evidence-based guidance: Develop a complete and accurate medication list including those prescribed and dkij-agy-sqwmqtq, those taken only occasionally and those not [...] Managed Care Plan Alcohol Use (Wellness) Patricia Arritea RN Note: Evidence-based guidance: Identify alcohol use [...] as of this encounter Visit Diagnoses Diagnosis Primary hypertension Unspecified essential hypertension documented in this encounter Additional Health Concerns Active Problems Noted Date Diagnosed Date [facility] TYPE 2 DIABETES CONCERN 12/06/2024 [facility] TYPE 2 DIABETES NO MEDICATION PATTERN DANILO RN 12/06/2024 [facility] HYPERTENSION CONCERN (P ATIENT ON HIGH [...] Total Score: 0 09/02/19 25 2:01 PM PLUMBER MAINTENANCE documented as of this encounter Care Teams Senior Adults Director Relationship Specialty Start Date End Date Aide Andre DO [address] [facility] [address] [place] [address] PCP - General Family Medicine 05/05/24 Tasha Aranda APRN, STUDENT SERVICES VICE PRESIDENT [address] [place] [address] Nurse Practitioner Advanced Practice Nurse 05/06/24 Cara Royal RN [place] Registered Nurse 12/13/24 Simoen Blue MD #[address] [address] Consulting Physician Colon and Rectal Surgery 01/06/25 documented as of this encounter
--- OUTSIDE RECORDS SUMMARY | 2025-05-24 12:55 | XMS_ITS | Encounter Summary ---
Author Organization [facility] Address [address] [facility] [place] [address] Phone Care Team Providers Care Tier Truck Driver Name Role Phone Alejandro Edouard MD Primary Care Provider [phone] Tasha Aranda APRN, EXECUTIVE MANAGER Unavailable [phone] Aide Andre DO Primary Care Provider Tasha Aranda APRN, EXECUTIVE MANAGER Unavailable +- [phone] Cara Royal RN Unavailable Unavailable Simone Blue MD Unavailable Reason for Visit * Reason Comments Medication Refill Encounter Details Date Type Department Care Team (Late st Contact Info) Description 10/08/[address] [facility] Medical Group - Family Medicine [facility] #2 [place] [address] Alejandro Edouard MD [address]1 [place] [address] Medication Refill Social History Tobacco Use Types [...] COVID-19? No / Unsure 10/10/2021 8:33 AM HOG SCRAPER documented as of this encounter Miscellaneous Notes [...] [place] 06/19/21 Office Visit Zhanna Campos APRN, FLATBED DRIVER [facility] [place] 05/21/21 Office Visit Alejandro Edouard MD [facility] [place] 12/29/20 Office Visit Alejandro Edouard MD [facility] [place] 11/07/20 Office Visit Alejandro Edouard MD [facility] [place] Showing recent visits within past 365 days and meeting all other requirements Future Appointments Date Type Provider Dept 11/19/21 Appointment Alejandro Edouard MD [facility] [place] 01/01/22 Appointment Alejandro Edouard MD [facility] Showing future appointments within next 90 days and meeting all other requirements SCRAPER documented in this encounter Plan of Treatment Upcoming Encounters Date Type Department Care Team (Late st Contact Info) Description 06/10/2025 8:00 AM CDT Office Visit [facility] - Neurology - [place] [address]2 [place] [address] Tasha Aranda, EXPLOSIVES OPERATOR, EXECUTIVE MANAGER #2 [place] [address] 06/17/2025 8:20 AM CDT Office Visit [facility] Family Medicine - [place] #2 [facility] [place] [address] Aide Andre DO [address] [facility] [address] [place] [address] documented as of this encounter Visit Diagnoses Not on filedocumented in this encounter Additional Health Concerns Infection Onset Date Last Indicated Resolved Time COVID - 19 07/15/2022 07/15/2022 07/25/2022 12:1 6 AM HOG SCRAPER COVID - 19 05/11/2024 05/11/2024 05/11/2024 3:23 PM CDT Respiratory Rule-Out 05/11/2024 05/11/2024 024 3:23 PM CDT Assessment Noted Time PHQ-9 Depression Total Score: 0 11/08/19 21 2:00 PM CDT documented as of this encounter Care Teams Tier Truck Driver Relationship Specialty Start Date End Date Alejandro Edouard MD PCP - General Family Medicine 09/28/18 05/03/24 Aide Andre DO [address] [facility] [place] [address] [place] [address] PCP - General Family Medicine 05/05/24 Tasha Aranda APRN, EXECUTIVE MANAGER #2 [place] [address] Nurse Practitioner Advanced Practice Nurse 06/19/22 05/03/24 Tasha Aranda APRN, EXECUTIVE MANAGER [address]2 [place] [address] Nurse Practitioner Advanced Practice Nurse 05/06/24 Cara Royal, [place] Registered Nurse 12/13/24 Simone Blue MD #[address] [address] Consulting Physician Colon and Rectal Surgery 01/06/25 documented as of this encounter
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
--- OUTSIDE RECORDS SUMMARY | 2025-05-24 12:55 | XMS_ITS | Encounter Summary ---
Author Organization [facility] Address [address] [facility] [place] [address] Phone Care Team Providers Care Card Tender Name Role Phone Alejandro Edouard MD Primary Care Provider [phone] Tasha Aranda APRN, WALLPAPER REMOVER STEAM Unavailable [phone] Aide Andre DO Primary Care Provider [phone] Tasha Aranda APRN, WALLPAPER REMOVER STEAM Unavailable [phone]- [phone] Cara Royal RN Unavailable Unavailable Simone Blue MD Unavailable Reason for Visit * Reason Comments Medication Refill Encounter Details Date Type Department Care Team (Late st Contact Info) Description 12/23/2022 Refill [facility] Medical Group - Family Medicine [facility] #2 [place] [address] Emilio Torres MD #[address] [address] Medication Refill Social History Tobacco Use Types [...] 11/05/22 Office Visit Zhanna Campos APRN, [facility]IAN [facility] [place] 07/15/22 Office Visit Umm Pascal APRN, SURGICAL SCRUB TECH [facility] [place] 05/21/22 Office Visit [facility] Show[facility] recent visits within past 365 days [...] Description 06/10/2025 8:00 AM CDT Office Visit [facility] - Neurology - [place] #2 [place] [address] Tasha Aranda APRN, WALLPAPER REMOVER STEAM [address]2 [place] [address] 06/17/2025 8:20 AM CDT Office Visit [facility] Medical [facility] - Family Medicine - [place] #2 [place] [address] Aide Andre, [address] [address] documented as of this encounter Visit Diagnoses Diagnosis Neck pain, acute Cervicalgia documented in this encounter Additional Health Concerns Infection Onset Date Last Indicated Resolved Time COVID - 19 05/11/2024 05/11/2024 05/11/2024 3:23 PM CDT Respiratory Rule-Out 05/11/2024 05/11/2024 024 3:23 PM CDT Assessment Noted Time PHQ-9 Depression Total Score: 0 07/15/20 22 1:00 PM SP[employer] MILLER [employer] documented as of this encounter Care Teams Card Tender Relationship Specialty Start Date End Date Alejandro Edouard MD PCP - General Family Medicine 09/28/18 05/03/24 Aide Andre DO 2 [facility] [address] [place] [address] PCP - General Family Medicine 05/05/24 aTsha Aranda APRN, WALLPAPER REMOVER STEAM [address] [place] [address] Nurse Practitioner Advanced Practice Nurse 06/19/22 05/03/24 Tasha Aranda APRN, WALLPAPER REMOVER STEAM [address] [place] [address] Nurse Practitioner Advanced Practice Nurse 05/06/24 Cara Royal RN [place] Registered Nurse 12/13/24 Simone Blue MD #[address] [address] Consulting Physician Colon and Rectal Surgery 01/06/25 documented as of this encounter
--- OUTSIDE RECORDS SUMMARY | 2025-05-24 12:55 | XMS_ITS | Encounter Summary ---
Author Organization [facility] Address [address] [facility] [place] [address] Phone Care Team Providers Care Food Adviser Name Role Phone Alejandro Edouard MD Primary Care Provider [phone] Tasha Aranda APRN, MANAGED CARE DIRECTOR Unavailable [phone] Aide Andre DO Primary Care Provider Tasha Aranda APRN, MANAGED CARE DIRECTOR Unavailable +- [phone] Cara Royal RN Unavailable Unavailable Simone Blue MD Unavailable Reason for Visit * Reason Comments Medication Refill Encounter Details Date Type Department Care Team (Late st Contact Info) Description 08/10/2021 Refill [facility] Medical Group - Family Medicine [facility] [address] [place] [address] Alejandro Edouard MD #[address] [place] [address] Medication Refill Social History Tobacco Use Types [...] 06/19/21 Office Visit Zhanna Campos APRN, CHRISTIAN [facility] [place] 05/21/21 Office Visit Alejadnro Edouard MD [facility] 12/29/20 Office Visit Alejandro Edouard MD [facility] [place] 11/07/20 Office Visit [facility] Showing recent visits within past 365 days and meeting all other requirements Future Appointments No visits were found meeting these conditions. Showing future appointments within next 90 days and meeting all other requirements H INSPECTOR documented in this encounter Plan of Treatment Upcoming Encounters Date Type Department Care Team (Late st Contact Info) Description 06/10/2025 8:00 AM CDT Office Visit [facility] - Neurology - [place] [address]2 [place] [address] Tasha Aranda APRN, MANAGED CARE DIRECTOR #2 [place] [address] 06/17/2025 8:20 AM CDT [facility] Visit [facility] #2 [place] [address] Aide Andre DO [address] [address] documented as of this encounter Visit Diagnoses Not on filedocumented in this encounter Additional Health Concerns Infection Onset Date Last Indicated Resolved Time COVID - 19 07/15/2022 07/15/2022 07/25/2022 12:1 6 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 COVID - 19 05/11/2024 05/11/2024 05/11/2024 3:23 PM CDT Respiratory Rule-Out 05/11/2024 05/11/2024 024 3:23 PM CDT Assessment Noted Time PHQ-9 Depression Total Score: 0 11/08/19 21 2:00 PM CDT documented as of this encounter Care Teams Food Adviser Relationship Specialty Start Date End Date Alejandro Edouard MD PCP - General Family Medicine 09/28/18 05/03/24 Aide Andre DO 2 [facility] [address] [address] PCP - General Family Medicine 05/05/24 Tasha Aranda APRN, MANAGED CARE DIRECTOR #2 [place] [address] Nurse Practitioner Advanced Practice Nurse 06/19/22 05/03/24 Tasha Aranda APRN, MANAGED CARE DIRECTOR #2 [place] [address] Nurse Practitioner Advanced Practice Nurse 05/06/24 Cara Royal, [place] Registered Nurse 12/13/24 Simone Blue MD #[address] [address] Consulting Physician Colon and Rectal Surgery 01/06/25 documented as of this encounter
--- OUTSIDE RECORDS SUMMARY | 2025-05-24 12:55 | XMS_ITS | Encounter Summary ---
Author Organization [facility] Address [address] [facility] [place] [address] Phone Care Team Providers Care Weight Inspector Name Role Phone ThaiAide philip Ro CRISTOBAL Primary Care Provider [phone] Tasha Aranda APRN, DEICER REPAIRER Unavailable [phone] Cara Royal RN Unavailable Unavailable Simone Blue MD Unavailable Encounter Details Date Type Department Care Team (Late st Contact Info) Description 05/10/2025 Results Follow-Up [facility] Medical Group - General Surgery - [place] #[address] [id number] Simone Blue MD #[address] [address] Pathology Surgical Social History Tobacco Use Types Packs/Day Years Used Date Smoking Tobacco: Never Smokeless Tobacco: Never Alcohol Use Standard Drinks/Week Comments Not Currently 6 (1 standard drink = 0.6 oz pure alcohol) drank heavy, now on a weekend. Quit 02/14/[address] [facility] Utilities Answer Date Recorded In the past 12 months has [employer], gas, oil, or water [employer] threatened to shut off services in your [...] often do you attend chur ch or christianity services? Patient declined 12/28/2024 Do you belong to any clubs o r organizations such as oriental orthodox groups, unions, fraternal or athletic groups, or [...] Total Score - Questions 1-9 0 08/18 [facility] Occup[facility] - Occupational Stress Questionnaire Answer Date Recorded [...] money to buy more. Never true 12/29/19 Within the past 12 months, t he [...] place to sleep or slept in a intermediate (including now)? No 12/04/2023 Housing Stability Vital Sign Answer Clive e Recorded In the last 12 months, was t here a time when you were not able to pay the mortgage or rent on time? No 12/28/2024 Number of Times Moved in the Last Year Not on fi le 12/28/2024 At any time in the past 12 m [facility], were you homeless or living in a intermediate (including now)? No 12/28/2024 AUDIT-C Answer Date [...] on file documented as of this encounter Progress Notes * Simone Blue MD - 05/10/2025 10:46 AM CDT Called patient at 05/10/2025 10:45 AM CDT. Patient had 1 polyps. Pathology was benign. Repeat colonoscopy in 5 years. EGD biopsies negative. No need for repeat. bleeding after the colonoscopy has stopped. She was asked about hemorrhoids. Told her that I will be happy to see her in the office to discuss her hemorrhoid issues documented in this encounter Plan of Treatment Upcoming Encounters Date Type Department Care Team (Late st Contact Info) Description 06/10/2025 8:00 AM CDT Office Visit [facility] - [facility] #2 [facility] [place] [address] Tasha Aranda, FOOD AND BEVERAGE ASSISTANT MANAGER, DEICER REPAIRER #2 [place] [address] 06/17/2025 8:20 AM CDT Office Visit [facility] Family Medicine [facility] #2 [place] [address] Aide Andre, DO 2 [facility]. [address] [place] [address] documented as of this encounter Goals Goal [...] patients manage type 2 diabetes Care Plan [facility] DIABETES CONCERN No Aide Andre, DO Help patient manage blood glucose Care Plan [facility] DIABETES NO MEDICATION PATTERN CONCERN No Aide Andre, DO Help patient manage hypertension Care Plan [facility] HYPERTENSION CONCERN (PATIENT ON HIGH BLOOD [...] patient has safety plan. Facilitate entry into intermediate or other safe location when patient expresses [...] Identify tobacco use status including cigarette, cigar, mgqz-cazh-kpg, dissolvable, hookah or smokeless tobacco, nicotine gels, [...] Note: Evidence-based guidance: Assess health literacy using [place] of Medicine recommended questions or standardized tools. [...] the community such as library, continuing education, Monegasque as a second language class, support group or peer health volleyball coach. Provide educational materials that are written in plain language (3rd to 5th grade reading level) and include icons, pictures and tables; provide essential information first. Notes: Medication Adherence Maintained Care Plan Medication Adherence (Wellness) Patricia Arrieta, RN Note: Evidence-based guidance: Develop a complete and accurate medication list including those prescribed and tjbh-kdl-qoiujpi, those taken only occasionally and those not [...] Concerns Active Problems Noted Date Diagnosed Date [facility] TYPE 2 DIABETES CONCERN 12/06/2024 [facility] TYPE 2 DIABETES NO MEDICATION PATTERN DANILO RN 12/06/2024 [facility] HYPERTENSION CONCERN (P ATIENT ON HIGH [...] Total Score: 0 09/02/19 25 2:01 PM DIRECTOR PUBLIC documented as of this encounter Care Teams Weight Inspector Relationship Specialty Start Date End Date Aide Andre DO 2 [facility] [address] [place] [address] PCP - General Family Medicine 05/05/24 Tasha Aranda APRN, DEICER REPAIRER #[address] [place] [address] Nurse Practitioner Advanced Practice Nurse 05/06/24 Cara Royal, [place] Registered Nurse 12/13/24 Simone Blue MD #[address] [address] Consulting Physician Colon and Rectal Surgery 01/06/25 documented as of this encounter
--- OUTSIDE RECORDS SUMMARY | 2025-05-24 12:55 | XMS_ITS | Clinical Summary ---
Author Organization [facility] Address [address] [place] [address] Phone Care Team Providers Care Farm Management Professor Name Role Phone Aide Andre Primary Care Provider [phone] Tasha Aranda MINE BOSS, TRANSIT PLANNING MANAGER Unavailable [phone] Cara Royal RN Unavailable Unavailable Simone Blue [...] daily. 90 Tablet 2 10/04/19 25 Active Diclofenac Sodium (VOLTAREN) 1 % GelIndications:Mae delores osteoarthritis involving multiple joints Apply 2 g 4 times daily. Apply to arthritic joint qid. 100 g 4 02/08/20 25 Active MAGnesium-Oxide 400 (240 Mg) MG [...] (Blood Pressure Cuff) MiscIndications:Pr imary hypertension Dispense battery-powered arm cuff. Dx: I10 1 Each 03/17/20 25 Active benazepril-hydroCH LOROthiazide (LOTENSIN HCT) 20-12.5 MG Tablet Take 1 Tablet by mouth daily. 30 Tablet 3 03/31/20 25 Active pantoprazole (PROTONIX) 40 MG Tablet Delayed Response Take 1 Tablet by mouth daily. 90 Tablet 1 04/01/20 25 Active albuterol 108 (90 Base) MCG/ACT Aerosol Solution take 2 Puffs by inhalation every 4 hours as needed for Wheezing. 8.5 g 5 04/15/20 25 Active fluticasone (FLONASE) 50 MCG/ACT Suspension 1 Eden by Nasal route daily. Use in each nostril as directed. 16 g 8 04/15/20 25 Active Additional Information Patient taking differently:1 Eden NasalDAILY PRN, Use in each nostril as directed., Reported on 05/05/2025 Calcium Carb-Cholecalcifer ol (CALCIUM-VITAMIN D PO) Take 1 Tablet by mouth daily. Active benzonatate (TESSALON) 100 MG Capsule Take 100 mg by mouth 3 times daily as needed for Cough. Active metoprolol Succinate (TOPROL-XL) 25 MG TABLET SR 24 HRIndications:Prim moira hypertension Take 1 Tablet by mouth daily. A.M. medication 30 Tablet 8 05/24/20 25 Active metoprolol Succinate (TOPROL-XL) 25 MG TABLET SR 24 HRIndications:Prim moira hypertension Take 1 Tablet by mouth daily. A.M. medication 30 Tablet 8 10/05/19 25 025 Discontin ued(Reord er) ergocalciferol (VITAMIN D) 58418 UNIT Capsule Take 1 Capsule by mouth once a week. 12 Capsule 02/09/20 25 025 Discontin ued(Reord er) ergocalciferol (VITAMIN D) 99298 UNIT Capsule Take 1 Capsule by mouth once a week. 12 Capsule 05/02/20 25 025 Discontin ued(Error ) Active Problems Problem Noted Date Diagnosed Date [...] Encounters Date Type Department Care Team Description 05/23[facility] [place] [facility] [place] [phone] Aide Andre, DO Medication Refill 05/18/2025 Results Follow-Up [facility] [place] [address] [place] [address] Belle Buck, MINE BOSS, NIGHT BAKER VITAMIN D, 25 HYDROXY TOTAL 05/10/2025 Results Follow-Up [facility] General Surgery - [place] [address] [facility] [address] [place] [phone] Simone Blue MD Pathology Surgical 05/09/2025 Telephone [facility] General [facility] [place] [address] [facility] [address] [place] [address] Simone Blue MD Results (Colonoscopy) 05/05/2025 7:37 AM CDT Anesthesia Event [facility] Periop [address] [place] [address] Federico Hickman APRN, ANIMAL STICKER 05/05/2025 7:30 AM CDT - 05/05/2025 8:30 AM CDT Surgery [facility] Periop [address] [place] [address] Simone Blue MD EGD - ANTRAL BIOPSY (BIOPSY FORCEPS), GE JUNCTION BIOPSY 05/05/2025 6:40 AM CDT Ancillary Procedure [facility] Gi Lab Main [address] [place] [phone] Simone Blue MD 05/05/2025 6:35 AM CDT Ancillary Procedure [facility] Gi Lab Main [address] [place] [address] Simone Blue MD 05/05/2025 6:31 AM CDT - 05/05/2025 8:49 AM CDT Hospital Encounter [facility] GI Lab Preop/Pacu II [address] [place] [phone] Simone Blue MD Discharge Disposition: Discharged to home or Selfcare 05/05/2025 Travel 04/29/2025 Travel 04/27/2025 Documentation Only [facility] Family Medicine - [place] [address] [place] [address] Aide Andre, 04/25/2025 Travel 04/15/2025 MyChart RX Renewal [facility] [address] [place] [address] Aide Andre, Medication Renewal Reviewed 04/07/2025 Telephone [facility] [address] [place] [address] Aide Andre, DO 04/05/2025 MyChart RX Renewal [facility] [address] [place] [address] Aide Andre, Medication Renewal Declined 04/01/2025 MyChart RX Renewal [facility] [address] [place] [address] Aide Andre, Medication Renewal Reviewed 03/31/2025 8:40 AM CDT Clinical Support [facility] [address] [place] [address] Primary hypertension (Primary Dx) Discharge Disposition: Discharged to home or Selfcare 03/31/2025 Refill [facility] [address] [place] [address] Aide Andre, Medication Refill 03/31/2025 Travel 03/23/2025 Results Follow-Up [facility] [address] [place] [address] Beka Meier MD XR ANKLE 3 OR MORE VIEWS RIGHT 03/17/2025 9:30 AM CDT - 03/17/2025 11:59 PM CDT [facility] [address] [place] [address] Beka Meier MD Discharge Disposition: Discharged to home or Selfcare 03/17/2025 8:45 AM CDT Office Visit [facility] [address] [place] [address] Beka Meier MD Primary hypertension (Primary Dx); Acute right ankle pain; Hypomagnesemia; Vitamin D deficiency Discharge Disposition: Discharged to home or Selfcare 03/17/2025 Travel 03/11/2025 8:30 AM CDT Office Visit [facility] [address] [place] [address] Tasha Aranda, MINE BOSS, TRANSIT PLANNING MANAGER Chronic right shoulder pain (Primary Dx); Alcohol use disorder, moderate, dependence (HCC); Hypertension, unspecified type; Episodic migraine Discharge Disposition: Discharged to home or Selfcare 03/10/2025 Travel 03/03/2025 9:20 AM CDT Clinical Support [facility] [address] [place] [address] Primary hypertension (Primary Dx) Discharge Disposition: Discharged to home or Selfcare 03/03/2025 Travel from Last 3 Months Immunizations Immunization Administration [...] Gibson High Cholesterol Father Gibson Hypertension Father Gisbon No Known Problems Maternal Grandfather No Known Problems Maternal Grandmother Heart Attack Mother Roselyn Heart Surgery Mother Roselyn 3 triple bypas s High Cholesterol Mother Roselyn Hypertension Mother Roselyn No Known Problems Paternal Grandfather No Known Problems Paternal Grandmother Asthma Sister 1 Audrey Cancer Sister 1 Audrey unknown Diabetes Sister 1 Audrey Cancer Sister 2 Dalia Heart Disease Sister 3 Klaudia Hypertension Sister 3 Klaudia No Known Problems Sister 4 Serena Relation Name Status Comments Brother 1 Alfonzo Brother 2 Bennie Daughter 1 Rissa Alive Daughter 2 Shahrzad Alive Father Gibson Maternal Grandfather Maternal Grandmother Mother Roselyn Paternal Grandfather Paternal Grandmother Sister 1 Audrey Alive Sister 2 Dalia Alive Sister 3 Klaudia Alive Sister 4 Serena Alive Social History Tobacco Use Types Packs/Day Years Used Date Smoking Tobacco: Never Smokeless Tobacco: Never Tobacco Cessation:Counseling Given: Yes Alcohol Use Standard Drinks/Week Comments Not Currently 6 (1 standard drink = 0.6 oz pure alcohol) drank heavy, now on a weekend. Quit 02/14/25 [facility] Utilities Answer Date Recorded In the past 12 months has e G3, gas, oil, or water [employer] threatened to shut off services in your [...] often do you attend chur ch or temple services? Patient declined 12/28/2024 Do you belong to any clubs o r organizations such as samaritan groups, unions, fraternal or athletic groups, or [...] Total Score - Questions 1-9 0 08/18 [facility] [place] [facility] - Occupational Stress [...] place to sleep or slept in a fci (including now)? No 12/04/2023 Housing Stability Vital Sign Answer Clive e Recorded In the last 12 months, was t here a time when you were not able to pay the mortgage or rent on time? No 12/28/2024 Number of Times Moved in the Last Year Not on fi le 12/28/2024 At any time in the past 12 m [facility], were you homeless or living in a fci (including now)? No 12/28/2024 AUDIT-C Answer Date [...] Sign Reading Time Taken Comments Blood Pressure 105/60 05/05/2025 8:35 AM CDT Pulse 53 05/05/2025 8:35 AM CDT Temperature 36 C (96.8 F) 05/05/2025 8:35 AM CDT Respiratory Rate 13 05/05/2025 8:35 AM CDT Oxygen Saturation 100% 05/05/2025 8:35 AM CDT Inhaled Oxygen Concentration - - Weight 57.6 kg (127 lb) 04/25/2025 11:00 AM CDT Height 157.5 cm (5' 2) 04/25/2025 11:00 AM CDT Body Mass Index 23.23 04/25/2025 11:00 AM CDT Plan of Treatment Upcoming Encounters Date Type Department Care Team (Late st Contact Info) Description 06/10/2025 8:00 AM CDT [facility] [address] [place] [address] Tasha Aranda APRN, TRANSIT PLANNING MANAGER [address] [place] [address] 06/17/2025 8:20 AM CDT Office Visit [facility] - Family Medicine [facility] [address] [place] [phone] Aide Andre, DO 2 [facility] [place] [address] Health Maintenance Due Date Last Done Comments Cologuard 2007 Immunochemical Fecal Occult Blood 2007 Medicare Initial AWV [id number] 04/17/2010 Influenza Immunization (#1) 04/18/202505/18, 05/31/2015 Mammogram 12/28/2025 12/28/2024, 10/22/2018, 11/01/2016 Colonoscopy 05/05/2030 05/05/2025, 05/05/2025, 05/21/2016 Colorectal Cancer Screening 05/05/2030 Hepatitis C Virus (HCV) Screening Completed 05/29/2023 [...] patients manage type 2 diabetes Care Plan [facility] TYPE 2 DIABETES CONCERN No Aide Andre, DO Help patient manage blood glucose Care Plan [facility] TYPE 2 DIABETES NO MEDICATION PATTERN CONCERN No Aide Andre, DO Help patient manage hypertension Care Plan [facility] HYPERTENSION CONCERN (PATIENT ON HIGH BLOOD [...] patient has safety plan. Facilitate entry into fci or other safe location when patient expresses [...] Identify tobacco use status including cigarette, cigar, [id number], dissolvable, hookah or smokeless tobacco, nicotine gels, [...] Note: Evidence-based guidance: Assess health literacy using [place] [facility] [place] recommended questions or standardized tools. [...] the community such as library, continuing education, [place] as a second language class, support group or peer health assistant wrestling coach. Provide educational materials that are written in plain language (3rd to 5th grade reading level) and include icons, pictures and tables; provide essential information first. Notes: Medication Adherence Maintained Care Plan Medication Adherence (Wellness) Patricia Arrieta, HELEN Note: Evidence-based guidance: Develop a complete and accurate medication list including those prescribed and [id number], those taken only occasionally and those not [...] Procedure Name Priority Date/Time Associated Diagnosis Comments PATHOLOGY SURGICAL Routine 05/05/2025 7:42 AM CDT COLON CA SCRN NOT HI RSK IND 7:38 AM CDT EGD - ANTRAL BIOPSY (BIOPSY FORCEPS), GE JUNCTION BIOPSYCOLONOSCOPY - DIVERTICULOSIS, NEGATIVE TI, RECTAL POLYPECTOMY (HOT SNARE) Case Notes 02/28 - RS FROM 05/16 TO 05/05 Special Needs 0630 arrival confirmed by teresa EGD/Colon COLORECTAL SCRN; HI RISK IND 7:38 AM CDT EGD - ANTRAL BIOPSY (BIOPSY FORCEPS), GE JUNCTION BIOPSYCOLONOSCOPY - DIVERTICULOSIS, NEGATIVE TI, RECTAL POLYPECTOMY (HOT SNARE) Case Notes 02/28 - RS FROM 05/16 TO 05/05 Special Needs 0630 arrival confirmed by teresa EGD/Colon NH COLONOSCOPY FLX DX W/AMERICO J SPEC WHEN PFRMD 05/05/2025 7:38 AM CDT EGD - ANTRAL BIOPSY (BIOPSY FORCEPS), GE JUNCTION BIOPSYCOLONOSCOPY - DIVERTICULOSIS, NEGATIVE TI, RECTAL POLYPECTOMY (HOT SNARE) Case Notes 02/28 - RS FROM 05/16 TO 05/05 Special Needs 0630 arrival confirmed by teresa EGD/Colon NH ESOPHAGOGASTRODUODENOSCOP Y TRANSORAL DIAGNOSTIC 05/05/2025 7:38 AM CDT EGD - ANTRAL BIOPSY (BIOPSY FORCEPS), GE JUNCTION BIOPSYCOLONOSCOPY - DIVERTICULOSIS, NEGATIVE TI, RECTAL POLYPECTOMY (HOT SNARE) Case Notes 02/28 - RS FROM 05/16 TO 05/05 Special Needs 0630 arrival confirmed by teresa EGD/Colon NH EGD FLEXIBLE TRANSNASAL D X W/COLLJ SPEC BR/WA 05/05/2025 7:38 AM CDT EGD - ANTRAL BIOPSY (BIOPSY FORCEPS), GE JUNCTION BIOPSYCOLONOSCOPY - DIVERTICULOSIS, NEGATIVE TI, RECTAL POLYPECTOMY (HOT SNARE) Case Notes 02/28 - RS FROM 05/16 TO 05/05 Special Needs 0630 arrival confirmed by teresa EGD/Colon GI IMAGING - COLONOSCOPY Routine 025 6:34 AM CDT GI LAB IMAGING - EGD Routine 05/05/2025 6:34 AM CDT VITAMIN D, 25 HYDROXY TOTAL Routine 04/18 10:31 AM CDT Hypomagnesemia Vitamin D deficiency XR ANKLE 3 OR MORE VIEWS RIGHT Routine 03/17/2025 9:39 AM CDT Acute right ankle pain MAGNESIUM (MG) Routine 03/17/2025 9:26 AM CDT Hypomagnesemia Vitamin D deficiency ELVI SCREENING BILATERAL DIGITAL W CAD W PRAVIN Routine 12/28/2024 8:07 AM CDT Encounter for screening mammogram for breast cancer HEPATITIS C ANTIBODY Routine 05/29/2023 8:41 AM CDT Need for hepatitis C screening test from Last 3 Months or Most Recently Relevant to Health Maintenance Results * Pathology Surgical (05/05/2025 7:42 AM CDT) Case Report Surgical Pathology Report Case: [id number] Authorizing Provider: Simone Blue MD Collected: 05/05/2025 07:42 AM Ordering Location: [facility] Received: 05/05/2025 10:15 AM [facility] Gi Lab Main Pathologist: Brooklyn Craig MD PhD Specimens: A) - Stomach, ANTRAL BIOPSY B) - Esophagus, GE JUNCTION BIOPSY C) - Colon, RECTAL POLYP 05/09/2025 11:23 AM CDT [facility] FINAL DIAGNOSIS A. Antral biopsy: - Gastric mucosa with focal mild chronic inflammation - Negative for acute inflammation or H. pylori by H&E stain B. GE junction biopsy: - Gastroesophageal junctional mucosa with mild chronic inflammation - Negative for intestinal metaplasia, dysplasia, or malignancy C. Rectal polyp, polypectomy: - Consistent with benign smooth muscle hyperplasia/leiomyo ma - Negative for malignancy 05/09/2025 11:23 AM CDT [facility] at 1123 CDT Comment In specimen C, the hyperplastic/leiomy julieta smooth muscle is positive for desmin while negative for CD117 and S100. Morphology and immunophenotype support the above diagnosis. 05/09/2025 11:23 AM CDT [facility] Pre-Operative Diagnosis HISTORY OF PEPTIC ULCER, HISTORY OF HYPERPLASTIC COLON 05/09/2025 11:23 AM CDT [facility] Gross Description A. ANTRAL BIOPSY Received in formalin labeled with the patient identifiers and antral biopsy is 1 sun-pink piece of tissue measuring 0.3 cm in greatest dimension. The specimen is entirely submitted in cassette A1. B. GE JUNCTION BIOPSY Received in formalin labeled with the patient identifiers and GE junction biopsy are 2 sun-white pieces of tissue measuring 0.2-0.3 cm in greatest dimension. The specimen is entirely submitted in cassette B1. C. RECTAL POLYP Received in formalin labeled with the patient identifiers and rectal polyp is 1 sun-pink piece of tissue measuring 0.6 cm in greatest dimension. The specimen is entirely submitted in cassette C1. Total time of formalin fixation: 13 hours and 59 minutes. 05/09/2025 11:23 AM CDT [facility] Microscopic Description Microscopic examination was performed which supports the final diagnosis. All control tissues stained appropriately. 05/09/2025 11:23 AM CDT [facility] Tissue STOMACH STRUCTURE / Unknown 05/05/2025 7:42 AM CDT 05/05/2025 10:15 AM CDT Tissue specimen (specimen) ESOPHAGEAL STRUCTURE / Unknown 05/05/2025 7:43 AM CDT 05/05/2025 10:15 AM CDT Tissue specimen (specimen) COLON STRUCTURE / Unknown 05/05/2025 8:01 AM CDT 05/05/2025 10:15 AM CDT Simone Blue MD PATHOLOGY/CYTOLOGY ORDERABLES Fi nal Result [facility] [address] [place] [address] * GI LAB IMAGING - EGD (05/05/2025 6:34 AM CDT) Simone SALAZAR DIAGNOSTIC ORDERABLES Final Result * GI IMAGING - COLONOSCOPY (05/05/2025 6:34 AM CDT) Simone SALAZAR DIAGNOSTIC ORDERABLES Final Result * VITAMIN D, 25 HYDROXY TOTAL (04/29/2025 10:31 AM CDT) VITAMIN D, 25 HYDROX 31.8 ng/mL 04/29/2025 1:15 PM CDT [facility] Blood Venipuncture / Unknown 04/29/2025 10:31 AM CDT 04/29/2025 12:12 PM CDT Narrative [facility] - 04/29/2025 1:15 PM CDT Published reference ranges for Vitamin D vary depending on time and place and method of testing, and on patient's age, sex, ethnicity and levels of other measured analytes such as parathormone, calcium and phosphorus. The result should be evaluated in conjunction with clinical findings and suspicions. [place] [facility] [place] and Endocrine Clinical Practice Guidelines: Status Vitamin D levels (ng/mL) Deficient <=20 At risk of inadequacy 21-29 Sufficient 30-100 Centers of Disease Control and Prevention Guidelines: Status Vitamin D levels (ng/mL) Deficient <13 At risk of inadequacy 13-19 Sufficient 20-50 Possibly harmful >50 References: [place], 2010 Dietary reference intakes for calcium and vitamin D. [place]: The National Academies Press. Tamela M, Ta N, Daniela ROGERS, et al., Evaluation, treatment, and prevention of Vitamin D deficiency: an Endocrinology Clinical Practice Guideline. JCEM 2011 96: 7 9118-5371. Mignon A, Ha C, Beverley D, et al., Vitamin D Status: [place], 7962-2711, [facility] data brief, no. 59, MD [place]: National Center for Health Statistics. 2011. us Aide Andre DO CHEMISTRY ORDERABLES Final Re sult [facility] [address] [place] [address] * XR ANKLE 3 OR MORE VIEWS [...] 11:51 AM - Electronically signed by Emilio REYES: AMY Report ID: [id number] Reading Location: [id number] Procedure Note Emilio Menjivar MD - 03/23/2025 [...] Emilio Menjivar M.D. MJ: AMY Report ID: [id number] Reading Location: [id number] IMPRESSION: There is a minimally displaced fracture through the base of the medial malleolus with prominent surrounding soft tissue swelling. Beka Meier MD IMG DIAGNOSTIC ORDERABLES Final Result * MAGNESIUM (MG) (03/17/2025 9:26 AM CDT) MAGNESIUM 1.6 1.6 - 2.6 mg/dL 03/17/2025 10:24 AM CDT [facility] Blood Venipuncture / Unknown 03/17/2025 9:26 AM CDT 03/17/2025 9:54 AM CDT Aide Andre DO CHEMISTRY ORDERABLES Final Re sult [facility] [address] [place] [address] * [facility] SCREENING BILATERAL DIGITAL W CAD W PRAVIN (12/28/2024 8:07 AM CDT) Anatomical Region Laterality Modality breast Bilateral Mammography 12/28/2024 8:02 AM CDT Narrative 12/29/2024 8:40 AM CDT - [facility] SCREENING BILATERAL DIGITAL W CAD W PRAVIN [...] is made to exams dated: 10/22/2018, 11/01/2016 [facility], and 07/07/2014 [facility]. BREAST TISSUE:There are scattered areas [...] signed by: Lakshmi de los santos/umair:12/28/2024 20:16:05 Physician Underwriter(s): RT Sally(R)(M), [facility] letter sent: Normal Exam Reading location: [...] is made to exams dated: 10/22/2018, 11/01/2016 [facility], and 07/07/2014 [facility]. BREAST TISSUE:There are scattered areas [...] signed by: Lakshmi de los santos/umair:12/28/2024 20:16:05 Physician Underwriter(s): RT Sally(R)(M), [facility] letter sent: Normal Exam Reading location: [place] Mammogram BI-RADS: Category 2: Benign [facility] Gene Meier MD IM MAMMO ORDERABLES Geni l Result * HEPATITIS C ANTIBODY (05/29/2023 8:41 AM CDT) hepatitis C antibody 0.19 <1 S/CO [facility] ARCH [id number] B 05/29/2023 9:22 PM CDT [facility] Comment: Signal/Cutoff ratio < 0.79 is Nondetected Signal/Cutoff ratio 0.80-0.99 is Grayzone Signal/Cutoff ratio > 0.99 is Detected Supplemental assays are recommended if signal/cutoff ratio is >/=1.00. Signal/cutoff ratio result >/= 5.00 is 97% predictive of positivity for recombinant immunoblot assay (RIBA) and will be reported to the [place] Department of Public Health as required. 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 Insurance [place]ID [place] [employer] MED[place]IC[place] C [employer]NA Advance Directives * Full Code (Latest Code Status on File) Date Activated Date Inactivated Comments 02/12/2023 2:53 PM 02/14/2023 9:51 PM CPR-Full Tr eatment: FULL ARREST: Attempt Resuscitation/CPR wit intubation and [...] 9:12 AM 09/15/2020 11:00 AM Care Teams Farm Management Professor Relationship Specialty Start Date End Date Aide Andre DO 2 [facility] [address] [place] [address] PCP - General Family Medicine 05/05/24 Tasha Aranda APRN, TRANSIT PLANNING MANAGER [address] [place] [address] Nurse Practitioner Advanced Practice Nurse 05/06/24 Cara Royal, HELEN [place] Registered Nurse 12/13/24 Simone Blue MD #2 [facility] [address] [place] [address] Consulting Physician Colon and Rectal Surgery 01/06/25
--- OUTSIDE RECORDS SUMMARY | 2025-05-24 12:55 | XMS_ITS | Encounter Summary ---
Author Organization [facility] Address [address] [facility] [place] [address] Phone Care Team Providers Care Logistics Team Lead Name Role Phone Alejandro Edouard MD Primary Care Provider [phone] Tasha Aranda APRN, RAILROAD POLICE Unavailable [phone] Aide Andre DO Primary Care Provider Tasha Aranda APRN, RAILROAD POLICE Unavailable +- [phone] Cara Royal RN Unavailable Unavailable Simone Blue MD Unavailable Reason for Visit * Reason Comments Medication Refill Encounter Details Date Type Department Care Team (Late st Contact Info) Description 12/12/2021 Refill [facility] - Family Medicine [facility] #2 [place] [address] Alejandro Edouard MD #1 [place] [address] Medication Refill Social History Tobacco Use Types [...] 12/29/20 Office Visit Alejandro Edouard MD [facility] [place] Showing recent visits [...] [place] 06/19/21 Office Visit Zhanna Campos APRN, INCENDIARY POWDER MIXER [facility] [place] 05/21/21 Office Visit [...] [place] 06/19/21 Office Visit Zhanna Campos APRN, INCENDIARY POWDER MIXER [facility] 05/21/21 Office Visit Alejandro Edouard [...] [place] 06/19/21 Office Visit Zhanna Campos APRN, INCENDIARY POWDER MIXER [facility] [place] 05/21/21 Office Visit Alejandro Edouard MD [facility] [place] 12/29/20 Office Visit Alejandro Edouard MD [facility] [place] Showing recent visits within past 365 days and meeting all other requirements Future Appointments No visits were found meeting these conditions. Showing future appointments within next 90 days and meeting all other requirements documented in this encounter Plan of Treatment Upcoming Encounters Date Type Department Care Team (Late st Contact Info) Description 06/10/2025 8:00 AM CDT Office Visit [facility] - Neurology - [place] #2 [place] [address] Tasha Aranda APRN, RAILROAD POLICE [address]2 [place] [address] 06/17/2025 8:20 AM CDT Office Visit [facility] Medical [facility] - Family Medicine - [place] #2 [place] [address] Aide Andre DO [address] [address] documented as of this encounter Visit Diagnoses Not on filedocumented in this encounter Additional Health Concerns Infection Onset Date Last Indicated Resolved Time COVID - 19 07/15/2022 07/15/2022 07/25/2022 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 COVID - 19 05/11/2024 05/11/2024 05/11/2024 3:23 PM CDT Respiratory Rule-Out 05/11/2024 05/11/2024 024 3:23 PM CDT Assessment Noted Time PHQ-9 Depression Total Score: 0 11/08/19 21 2:00 PM CDT documented as of this encounter Care Teams Logistics Team Lead Relationship Specialty Start Date End Date Alejandro Edouard MD PCP - General Family Medicine 09/28/18 05/03/24 Aide Andre DO [address] [address] PCP - General Family Medicine 05/05/24 Tasha Aranda APRN, RAILROAD POLICE #2 [place] [address] Nurse Practitioner Advanced Practice Nurse 06/19/22 05/03/24 Tasha Aranda APRN, RAILROAD POLICE [address]2 [place] [address] Nurse Practitioner Advanced Practice Nurse 05/06/24 Cara Royal, HELEN [place] Registered Nurse 12/13/24 Simone Blue MD #[address] [place] [address] Consulting Physician Colon and Rectal Surgery 01/06/25 documented as of this encounter
--- OUTSIDE RECORDS SUMMARY | 2025-05-24 12:55 | XMS_ITS | Encounter Summary ---
Author Organization [facility] Address [address] [facility] [place] [address] Phone Care Team Providers Care Cdl Instructor Name Role Phone Alejandro Edouard MD Primary Care Provider Tasha Aranda APRN, LOG HAUL CHAIN FEEDER Unavailable [phone] Aide Andre DO Primary Care Provider [phone] Tasha Aranda APRN, LOG HAUL CHAIN FEEDER Unavailable +- [phone] Cara Royal RN Unavailable Unavailable Simone Blue MD Unavailable Reason for Visit * Reason Comments Medication Refill Encounter Details Date Type Department Care Team (Late st Contact Info) Description 04/23/2023 Refill [facility] - Family Medicine [facility] #2 [place] [address] Alejandro Edouard MD #1 [place] [address] Medication Refill Social History Tobacco Use Types [...] 04/23/2023 30 90 Tablet Alejandro Edouard MD [facility] ... IBUPROFEN 800 MG TABS 03/24/2023 30 90 Tablet Alejandro Edouard MD [facility] ... IBUPROFEN 800 MG TABS 02/21/2023 30 90 Tablet Alejandro Edouard MD [facility] ... documented in this encounter Plan of Treatment Upcoming Encounters Date Type Department Care Team (Late st Contact Info) Description 06/10/2025 8:00 AM CDT Office Visit [facility] - Neurology [facility] #2 [place] [address] Tasha Aranda APRN, LOG HAUL CHAIN FEEDER #2 [place] [address] 06/17/2025 8:20 AM CDT Office Visit [facility] - Family Medicine [facility] #2 [place] [address] Aide Andre DO 2 [facility] [address] [place] [address] documented as of this encounter Visit Diagnoses Diagnosis Neck pain, acute Cervicalgia documented in this encounter Additional Health Concerns Infection Onset Date Last Indicated Resolved Time COVID - 19 05/11/2024 05/11/2024 05/11/2024 3:23 PM CDT Respiratory Rule-Out 05/11/2024 05/11/2024 024 3:23 PM CDT Assessment Noted Time PHQ-9 Depression Total Score: 0 07/15/20 1:00 PM SIZE TESTER documented as of this encounter Care Teams Cdl Instructor Relationship Specialty Start Date End Date Alejandro Edouard MD PCP - General Family Medicine 09/28/18 05/03/24 Aide Andre DO [address] [address] PCP - General Family Medicine 05/05/24 Tasha Aranda APRN, LOG HAUL CHAIN FEEDER [address]2 [place] [address] Nurse Practitioner Advanced Practice Nurse 06/19/22 05/03/24 Tasha Aranda APRN, LOG HAUL CHAIN FEEDER #2 [place] [address] Nurse Practitioner Advanced Practice Nurse 05/06/24 Cara Royal, RN [place] Registered Nurse 12/13/24 Simone Blue MD #[address] [address] Consulting Physician Colon and Rectal Surgery 01/06/25 documented as of this encounter
--- OUTSIDE RECORDS SUMMARY | 2025-05-24 12:55 | XMS_ITS | Encounter Summary ---
Author Organization [facility] Address [address] [facility] [place] [address] Phone Care Team Providers Care Humidifier Operator Name Role Phone Alejandro Edouard MD Primary Care Provider [phone] Tasha Aranda APRN, MANAGER OF TRANSPORTATION Unavailable [phone] Aide Andre DO Primary Care Provider [phone] Tasha Aranda APRN, MANAGER OF TRANSPORTATION Unavailable [phone]- [phone] Cara Royal RN Unavailable Unavailable Simone Blue MD Unavailable Reason for Visit * Reason Comments Medication Refill Encounter Details Date Type Department Care Team (Late st Contact Info) Description 01/08/2021 Refill [facility] - Family Medicine [facility] #2 [place] [address] Alejandro Edouard MD #1 [place] [address] Medication Refill Social History Tobacco Use Types [...] ago Fever, unspecified fever cause [facility] Family Medicine - Falguni Arce PAC 1 year ago Neck pain, acute [facility] Family Medicine Alejandro Wayne MD Upcoming Appointments Future Appointments In 1 month Tasha Aranda, SLOT MACHINE KEY PERSON, MANAGER OF TRANSPORTATION [facility] - [place] GUN FERTILIZER - Recent and Past Visits Recent Visits Date Type Provider Dept 12/29/20 Office Visit Alejandro Edouard MD [facility] [place] 11/07/20 Office Visit Alejandro Edouard MD [facility] [place] 07/07/20 Office Visit Alejandro Edouard MD [facility] Showing recent visits within past 460 days [...] Description 06/10/2025 8:00 AM CDT Office Visit [facility] - Neurology - [place] #2 [place] [address] Tasha Aranda APRN, MANAGER OF TRANSPORTATION #2 [place] [address] 06/17/2025 8:20 AM CDT Office Visit [facility] - Family Medicine - [place] #2 [place] [address] Aide Andre, DO [address] [address] documented as of this encounter Visit Diagnoses Diagnosis Neck pain, acute Cervicalgia documented in this encounter Additional Health Concerns Infection Onset Date Last Indicated Resolved Time COVID - 19 06/19/2021 06/19/2021 07/09/2021 12:1 6 AM ATHLETE MANAGER COVID - 19 07/15/2022 07/15/2022 07/25/2022 12:1 6 AM ATHLETE MANAGER COVID - 19 05/11/2024 05/11/2024 05/11/2024 3:23 PM CDT Respiratory Rule-Out 05/11/2024 05/11/2024 024 3:23 PM CDT Assessment Noted Time PHQ-9 Depression Total Score: 0 11/08/19 21 2:00 PM CDT documented as of this encounter Care Teams Humidifier Operator Relationship Specialty Start Date End Date Alejandro Edouard MD PCP - General Family Medicine 09/28/18 05/03/24 Aide Andre DO [address] [address] PCP - General Family Medicine 05/05/24 Tasha Aranda APRN, MANAGER OF TRANSPORTATION #2 [place] [address] Nurse Practitioner Advanced Practice Nurse 06/19/22 05/03/24 Tasha Aranda APRN, MANAGER OF TRANSPORTATION [address]2 [place] [address] Nurse Practitioner Advanced Practice Nurse 05/06/24 Cara Royal, HELEN [place] Registered Nurse 12/13/24 Simone Blue MD #[address] [address] Consulting Physician Colon and Rectal Surgery 01/06/25 documented as of this encounter
--- OUTSIDE RECORDS SUMMARY | 2025-05-24 12:55 | XMS_ITS | Encounter Summary ---
Author Organization [facility] Address [address] [facility] [place] [address] Phone Care Team Providers Care Brush Cleaner Name Role Phone Alejandro Edouard MD Primary Care Provider [phone] Tasha Aranda APRN, ACCESS SERVICES LIBRARIAN Unavailable [phone] Aide Andre DO Primary Care Provider [phone] Tasha Aranda APRN, ACCESS SERVICES LIBRARIAN Unavailable [phone] Cara Royal RN Unavailable Unavailable Simone Blue MD Unavailable Reason for Referral * Radiology Services (Routine) - Closed Specialty Diagnoses / Procedures Referred By Tito samuels Referred To Contact Radiology Diagnoses Pre-op testing Procedures EKG 12 LEAD Hossein Rachel MD Phone: tel: fax: Referral ID Status Reason Start Date Expiration Date Visits Re quested Visits Authorized [id number] Closed 05/14/2021 1 1 * Radiology Services (Routine) - Closed Specialty Diagnoses / Procedures Referred By Tito samuels Referred To Contact Radiology Diagnoses Pre-op testing Procedures XR CHEST 2 VIEWS Hossein Rachel MD Phone: tel: fax: Referral ID Status Reason Start Date Expiration Date Visits Re quested Visits Authorized [id number] Closed 05/14/2021 1 1 Encounter Details Date Type Department Care Team (Latest Contact Info) Description 05/14/2021 Transcribe Orders [facility] Patient Access Admitting 1 [place] [address] Hossein Rachel MD [address] [place] [address] Pre-op testing (Primary Dx) Social History Tobacco [...] Description 06/10/2025 8:00 AM CDT [facility] - [place] #2 [place] [address] Tasha Aranda, RESUME SPECIALIST, ACCESS SERVICES LIBRARIAN #2 [place] [address] 06/17/2025 8:20 AM CDT Office Visit [facility] [place] #[address] [place] [address] Thai, Aide Ro, DO [address] [facility] [address], [place]. [address] [place] [address] documented as of this encounter Results * [...] Electronically signed by Thuan Dubose M.D. RB: YOLY Report ID: [id number] Reading Location: [id number] Procedure Note Thuan Dubose MD - 05/14/2021 [...] Electronically signed by Thuan Dubose M.D. RB: YOLY Report ID: [id number] Reading Location: [place] [address] IMPRESSION: No acute cardiopulmonary abnormality. Hossein Rachel MD IMG DIAGNOSTIC ORDERABLES Final Result * (ABNORMAL) CMP (COMPREHENSIVE METABOLIC PANEL) (05/14/2021 8:48 AM CDT) SODIUM 142 136 - 144 mmol/L 05/14/2021 9:59 AM CDT [facility] POTASSIUM 3.8 3.5 - 5.1 mmol/L 05/14/2021 9:59 AM CDT [facility] CHLORIDE 103 100 - 110 mmol/L 05/14/2021 9:59 AM CDT [facility] CO2, VENOUS 28 22 - 32 mmol/L 05/14/2021 9:59 AM CDT [facility] ANION GAP 14.8 8.0 - 20.0 mmol/L 05/14/2021 9:59 AM CDT [facility] GLUCOSE 120(H) 70 - 99 mg/dL 05/14/2021 9:59 AM CDT [facility] BUN 20 6 - 20 mg/dL 05/14/2021 9:59 AM CDT [facility] CREATININE, BLOOD 1.19(H) 0.60 - 1.10 mg/dL 05/14/2021 9:59 AM CDT [facility] BUN/CREATININE RATIO 17 12 - 20 ratio 05/14/2021 9:59 AM CDT [facility] TOTAL PROTEIN 7.1 6.0 - 8.3 g/dL 05/14/2021 9:59 AM CDT [facility] ALBUMIN 4.6 3.5 - 5.2 g/dL 05/14/2021 9:59 AM CDT [facility] Comment: The colormetric methods used for the determination of Albumin may lead to falsely elevated test results in patients suffering from renal failure or insufficiency due to interference with other proteins. A/G RATIO 1.8 1.0 - 2.0 05/14/2021 9:59 AM CDT [facility] CALCIUM 9.6 8.9 - 10.3 mg/dL 05/14/2021 9:59 AM CDT [facility] T BILI 0.4 <=1.2 mg/dL 05/14/2021 9:59 AM CDT [facility] SGOT (AST) 31 <=32 U/L 05/14/2021 9:59 AM CDT [facility] SGPT (ALT) 21 <=41 U/L 05/14/2021 9:59 AM CDT [facility] ALKALINE PHOSPHATASE 57 35 - 105 U/L 05/14/2021 9:59 AM CDT [facility] GFR, EST. NONAFRICAN 47(L) >=60 05/14/2021 9:59 AM CDT [facility] GFR, EST. 56(L) >=60 021 9:59 AM CDT [facility] Comment: Creatinine Clearance is the preferred criteria for selecting drug dose adjustments in renally impaired patients. The GFR is provided as additional pertinent clinical information. GFR is reported in mL/min/1.73 sq m. IS THE PATIENT REQUIRED TO BE FASTING? No 05/14/2021 9:59 AM CDT [facility] Blood Venipuncture / Unknown 05/14/2021 8:48 AM CDT 05/14/2021 9:30 AM CDT us Hossein Rachel MD CHEMISTRY ORDERABLES Final Resul t [facility] #1 [place] [address] * EKG 12 LEAD (05/14/2021 8:35 AM CDT) Ventricular Rate BPM EXTERNAL EKG Atrial Rate BPM EXTERNAL EKG P-R Interval 168 ms EXTERNAL EKG QRS Duration 76 ms EXTERNAL EKG Q-T Duration 386 ms EXTERNAL EKG QTC CALCULATION 405 ms EXTERNAL EKG P [place] 53 degrees EXTERNAL EKG R [place] 38 degrees EXTERNAL EKG T [place] 48 degrees EXTERNAL EKG 05/14/2021 8:35 AM CDT Impressions EXTERNAL EKG - 05/15/2021 9:12 AM CDT Sinus rhythm ECG now within normal limits Comparison Summary: Some abnormalities no longer present Summary: Normal ECG Compared with:07/07/2020 12:24 PM Confirmed by Taiwo Lyon [id number] on 05/15/2021 9:12:34 AM Narrative Procedure Note Ame Maravilla MD - 05/15/2021 IMPRESSION: Sinus rhythm ECG now within normal limits Comparison Summary: Some abnormalities no longer present Summary: Normal ECG Compared with:07/07/2020 12:24 PM Confirmed by Taiwo Lyon [id number] on 05/15/2021 9:12:34 AM Hossein Rachel MD IMG ECG ORDERABLES Final Result EXTERNAL EKG documented in this encounter Visit Diagnoses Diagnosis Pre-op testing- Primary Preoperative examination, unspecified Pre-op testing Preoperative examination, unspecified Pre-op testing Preoperative examination, unspecified documented in this encounter Additional Health Concerns Infection Onset Date Last Indicated Resolved Time COVID - 19 06/19/2021 06/19/2021 07/09/2021 12:1 6 AM EMERGENCY TELECOMMUNICATIONS DISPATCHER COVID - 19 07/15/2022 07/15/2022 07/25/2022 12:1 6 AM EMERGENCY TELECOMMUNICATIONS DISPATCHER COVID - 19 05/11/2024 05/11/2024 05/11/2024 3:23 PM CDT Respiratory Rule-Out 05/11/2024 05/11/2024 024 3:23 PM CDT Assessment Noted Time PHQ-9 Depression Total Score: 0 11/08/19 21 2:00 PM CDT documented as of this encounter Care Teams Brush Cleaner Relationship Specialty Start Date End Date Alejandro Edouard MD PCP - General Family Medicine 09/28/18 05/03/24 Aide Andre DO [address] [address] PCP - General Family Medicine 05/05/24 Tasha Aranda APRN, ACCESS SERVICES LIBRARIAN #2 [place] [address] Nurse Practitioner Advanced Practice Nurse 06/19/22 05/03/24 Tasha Aranda APRN, ACCESS SERVICES LIBRARIAN #[address] [place] [address] Nurse Practitioner Advanced Practice Nurse 05/06/24 Cara Royal, HELEN [place] Registered Nurse 12/13/24 Simone Blue MD #[address] [address] Consulting Physician Colon and Rectal Surgery 01/06/25 documented as of this encounter
--- OUTSIDE RECORDS SUMMARY | 2025-05-24 12:55 | XMS_ITS | Encounter Summary ---
Author Organization [facility] Address [address] [facility] [place] [address] Phone Care Team Providers Care Senior Sharepoint Developer Name Role Phone Alejandro Edouard MD Primary Care Provider [phone] Tasha Aranda APRN, CORRECTIONAL OFFICER LIEUTENANT Unavailable [phone] Aide Andre DO Primary Care Provider [phone] Tasha Aranda APRN, CORRECTIONAL OFFICER LIEUTENANT Unavailable [phone]- [phone] Cara Royal RN Unavailable Unavailable Simone Blue MD Unavailable Reason for Visit * Reason Comments Medication Refill Encounter Details Date Type Department Care Team (Late st Contact Info) Description 05/17/2021 Refill [facility] Group - Family Medicine [facility] #2 [place] [address] Alejandro Edouard MD #1 [place] [address] Medication Refill Social History Tobacco Use Types [...] Visit [facility] - Neurology - [place] #2 [place] [address] Tasha Aranda, CHEESE FACTORY WORKER, CORRECTIONAL OFFICER LIEUTENANT #2 [place] [address] 06/17/2025 8:20 AM CDT Office Visit [facility] - Family Medicine - [place] [address]2 [place] [address] Aide Andre, DO [address] [address] documented as of this encounter Visit Diagnoses Diagnosis Neck pain, acute Cervicalgia documented in this encounter Additional Health Concerns Infection Onset Date Last Indicated Resolved Time COVID - 19 06/19/2021 06/19/2021 07/09/2021 12:1 6 AM SERVICES CLERK COVID - 19 07/15/2022 07/15/2022 07/25/2022 12:1 6 AM SERVICES CLERK COVID - 19 05/11/2024 05/11/2024 05/11/2024 3:23 PM CDT Respiratory Rule-Out 05/11/2024 05/11/202405/11/2 024 3:23 PM CDT Assessment Noted Time PHQ-9 Depression Total Score: 0 11/08/19 21 2:00 PM CDT documented as of this encounter Care Teams Senior Sharepoint Developer Relationship Specialty Start Date End Date Alejandro Edouard MD PCP - General Family Medicine 09/28/18 05/03/24 Aide Andre DO 2 [facility] [address] [place] [address] PCP - General Family Medicine 05/05/24 Tasha Aranda APRN, CORRECTIONAL OFFICER LIEUTENANT #2 [place] [address] Nurse Practitioner Advanced Practice Nurse 06/19/22 05/03/24 Tasha Aranda APRN, CORRECTIONAL OFFICER LIEUTENANT #2 [place] [address] Nurse Practitioner Advanced Practice Nurse 05/06/24 Cara Royal, RN [place] Registered Nurse 12/13/24 Simone Blue MD #2 [facility] [address] [place] [address] Consulting Physician Colon and Rectal Surgery 01/06/25 documented as of this encounter
--- OUTSIDE RECORDS SUMMARY | 2025-05-24 12:55 | XMS_ITS | Encounter Summary ---
Author Organization [facility] Address [address] [facility] [place] [address] Phone Care Team Providers Care Egg Sorter Name Role Phone Alejandro Edouard MD Primary Care Provider [phone] Tasha Aranda APRN, EXAMINING OFFICER Unavailable [phone] Aide Andre DO Primary Care Provider [phone] Tasha Aranda APRN, EXAMINING OFFICER Unavailable [phone]- [phone] Cara Royla RN Unavailable Unavailable Simone Blue MD Unavailable Reason for Visit * Reason Comments Medication Refill Encounter Details Date Type Department Care Team (Late st Contact Info) Description 01/08/2022 Refill [facility] Medical Group - Family Medicine [facility] #2 [place] [address] Alejandro Edouard MD #1 [place] [address] Medication Refill Social History Tobacco Use Types [...] Office Visit Zhanna Campos APRN, TOOL MARKER [facility] [place] 05/21/21 Office Visit [facility]andro [facility] Showing recent visits within past 365 [...] Description 06/10/2025 8:00 AM CDT Office Visit [facility] - Neurology - [place] #2 [place] [address] Tasha Aranda APRN, EXAMINING OFFICER #2 [place] [address] 06/17/2025 8:20 AM CDT Office Visit [facility] Medical [facility] - Family Medicine - [place] #[address] [place] [address] Aide Andre, DO [address] [address] documented as of this encounter Visit Diagnoses Diagnosis Neck pain, acute Cervicalgia documented in this encounter Additional Health Concerns Infection Onset Date Last Indicated Resolved Time COVID - 19 07/15/2022 07/15/2022 07/25/2022 12:1 6 AM CHICKEN AND FISH BUTCHER COVID - 19 05/11/2024 05/11/2024 05/11/2024 3:23 PM CDT Respiratory Rule-Out 05/11/2024 05/11/2024 024 3:23 PM CDT Assessment Noted Time PHQ-9 Depression Total Score: 0 11/08/19 21 2:00 PM CDT documented as of this encounter Care Teams Egg Sorter Relationship Specialty Start Date End Date Alejandro Edouard MD PCP - General Family Medicine 09/28/18 05/03/24 Aide Andre DO 2 [facility] [address] [place] [address] PCP - General Family Medicine 05/05/24 Tasha Aranda APRN, EXAMINING OFFICER #2 [place] [address] Nurse Practitioner Advanced Practice Nurse 06/19/22 05/03/24 Tasha Aranda APRN, EXAMINING OFFICER #[address] [place] [address] Nurse Practitioner Advanced Practice Nurse 05/06/24 Cara Royal, HELEN [place] Registered Nurse 12/13/24 Simone Blue MD #[address] [address] Consulting Physician Colon and Rectal Surgery 01/06/25 documented as of this encounter
--- OUTSIDE RECORDS SUMMARY | 2025-05-24 12:55 | XMS_ITS | Encounter Summary ---
Author Organization [facility] Address [address] [facility] [place] [address] Care Team Providers Care Instructor Adjunct Pharmacy Technician Name Role Phone Alejandro Edouard MD Primary Care Provider [phone] Encounter Details Date Type Department Care Team (Late st Contact Info) Description 02/13/2023 Telephone [facility] [address] [place] [phone] Michael Grier MD [address] [place] [id number] Social History Tobacco Use Types Packs/Day Years [...] and heating? Not hard at all 02/14/2023 [facility] Occupat ional Health - Occupational Stress [...] place to sleep or slept in a [facility] (including now)? No 02/14/2023 Comments No Sex [...] Grier MD - 02/13/2023 6:40 PM CDT [facility] Outside Hospital Transfer Call Documentation Date:02/13/2023 Time:6:40 [...] Need EUS. Patient needs on arrival to [facility]: Medicine admissions resident (ask production lapping machine operator for Medicine Admission) to be notified of arrival. Consultation to (N/A if blank): Biliary GI I have accepted this patient for transfer to [facility]. If patient awaiting bed for >24hours, [...] on filedocumented in this encounter Care Teams Instructor Adjunct Pharmacy Technician Relationship Specialty Start Date End Date Alejandro Edouard MD PCP - General 12/01/18 documented as of this encounter
--- OUTSIDE RECORDS SUMMARY | 2025-05-24 12:55 | XMS_ITS | Encounter Summary ---
Author Organization [facility] Address [address] [facility] [place] [address] Phone Care Team Providers Care Wetland Scientist Name Role Phone Aide Andre DO Primary Care Provider [phone] Tasha Aranda APRN, RUG CLIPPER Unavailable [phone] Cara Royal RN Unavailable Unavailable Simone Blue MD Unavailable Encounter Details Date Type Department Care Team (Late st Contact Info) Description 06/02/2024 Telephone [facility] [address]2 [place] [address] Aide Andre, DO [address] [address] Social History Tobacco Use Types Packs/Day Years Used Date Smoking Tobacco: Never Smokeless Tobacco: Never Alcohol Use Standard Drinks/Week Comments Yes 6 (1 standard drink = 0.6 oz pur e alcohol) Occasionally [facility] Utilities Answer Date Recorded In the past 12 months has [employer] electric, gas, oil, or water company threatened [...] often do you attend chur ch or judaism services? Patient declined 12/04/2023 Do you belong to any clubs o r organizations such as taoist groups, unions, fraternal or athletic groups, or [...] Total Score - Questions 1-9 0 12/2023 [facility] of Occupat ional Health - [...] place to sleep or slept in a half-way (including now)? No 12/04/2023 Education Answer Date [...] Description 06/10/2025 8:00 AM CDT Office Visit [facility] - Neurology [facility] [address] [place] [address] Tasha Aranda, ATHLETIC TRAINER, RUG CLIPPER #2 [place] [address] 06/17/2025 8:20 AM CDT Office Visit [facility] - Family Medicine [facility] [address] [place] [address] Aide Andre, DO [address] [address] documented as of this encounter Visit Diagnoses Not on filedocumented in this encounter Additional Health Concerns Assessment Noted Time PHQ-9 Depression Total Score: 0 11/21/19 24 7:41 AM CDT documented as of this encounter Care Teams Wetland Scientist Relationship Specialty Start Date End Date Aide Andre DO 2 [facility] [address] [place] [address] PCP - General Family Medicine 05/05/24 Tasha Aranda APRN, RUG CLIPPER [address]2 [place] [address] Nurse Practitioner Advanced Practice Nurse 05/06/24 Cara Royal, [place] Registered Nurse 12/13/24 Simone Blue MD #[address] [address] Consulting Physician Colon and Rectal Surgery 01/06/25 documented as of this encounter
--- OUTSIDE RECORDS SUMMARY | 2025-05-24 12:55 | XMS_ITS ---
Author Organization [facility] Address [address] [place] [address] Phone Care Team Providers Care Material Stress Tester Name Role Phone Aide Andre DO Primary Care Provider [phone] Tasha Aranda APRN, CUSTODIAL OPERATIONS MANAGER Unavailable [phone] Cara Royal RN Unavailable Unavailable Simone Blue MD Unavailable Nurse Clinic Status:Enrolled (Active) Start date:12/13/2024 Enrollment date:12/13/2024 Current support & services provided:Hypertension Management Case Team Name Relationship Phone Cara Royal RN(Responsible Staff) Registered Nurse Continued Care and Services Coordination
--- OUTSIDE RECORDS SUMMARY | 2025-05-24 12:55 | XMS_ITS | Encounter Summary ---
Author Organization [facility] Address [address] [facility] [place] [address] Phone Care Team Providers Care Us Administrative Law Judge Name Role Phone Alejandro Edouard MD Primary Care Provider [phone] Tasha Aranda APRN, SERVICE PLANNER Unavailable [phone] Aide Andre DO Primary Care Provider [phone] Tasha Aranda APRN, SERVICE PLANNER Unavailable [phone]- [phone] Cara Royal RN Unavailable Unavailable Simone Blue MD Unavailable Reason for Visit * Reason Comments Medication Refill Encounter Details Date Type Department Care Team (Late st Contact Info) Description 03/03/2021 Refill [facility] Medical Group - Family Medicine [facility] [address]2 [place] [address] Alejandro Edouard MD #1 [place] [address] Medication Refill Social History Tobacco Use Types [...] Description 06/10/2025 8:00 AM CDT Office [facility] - [facility] - [place] [address] [place] [address] Tasha Aranda APRN, SERVICE PLANNER [address]2 [facility] [place] [address] 06/17/2025 8:20 AM CDT Office Visit [facility] Medical [facility] - [place] [address] [facility] [place] [address] Aide Andre DO 2 [address] [facility] [address] documented as of this encounter Visit Diagnoses Not on filedocumented in this encounter Additional Health Concerns Infection Onset Date Last Indicated Resolved Time COVID - 19 06/19/2021 06/19/2021 07/09/2021 12:1 6 AM GUN NUMBERER COVID - 19 07/15/2022 07/15/2022 07/25/2022 12:1 6 AM GUN NUMBERER COVID - 19 05/11/2024 05/11/2024 05/11/2024 3:23 PM CDT Respiratory Rule-Out 05/11/2024 05/11/2024 024 3:23 PM CDT Assessment Noted Time PHQ-9 Depression Total Score: 0 11/08/19 21 2:00 PM CDT documented as of this encounter Care Teams Us Administrative Law Judge Relationship Specialty Start Date End Date Alejandro Edouard MD PCP - General Family Medicine 09/28/18 05/03/24 Aide Andre DO [facility] [address] [place] [address] PCP - General Family Medicine 05/05/24 Tasha Aranda APRN, SERVICE PLANNER [address]2 [place] [address] Nurse Practitioner Advanced Practice Nurse 06/19/22 05/03/24 Tasha Aranda APRN, SERVICE PLANNER [address]2 [place] [address] Nurse Practitioner Advanced Practice Nurse 05/06/24 Cara Royal, [place] Registered Nurse 12/13/24 Simone Blue MD #[address] [address] Consulting Physician Colon and Rectal Surgery 01/06/25 documented as of this encounter
--- OUTSIDE RECORDS SUMMARY | 2025-05-24 12:55 | XMS_ITS | Encounter Summary ---
Author Organization [facility] Address [address] [facility] [place] [address] Phone Care Team Providers Care Cloth Boil Off Machine Operator Name Role Phone Alejandro Edouard MD Primary Care Provider [phone] Tasha Aranda APRN, FIRE PREVENTION CAPTAIN Unavailable [phone] Aide Andre DO Primary Care Provider [phone] Tasha Aranda APRN, FIRE PREVENTION CAPTAIN Unavailable +- [phone] Cara Royal RN Unavailable Unavailable Simone Blue MD Unavailable Reason for Visit * Reason Comments Medication Refill Encounter Details Date Type Department Care Team (Late st Contact Info) Description 11/07/2020 Refill [facility] Medical Group - Family Medicine [facility] [address]2 [place] [address] Alejandro Edouard MD #1 [place] [address] Medication Refill Social History Tobacco Use Types [...] Description 06/10/2025 8:00 AM CDT Office Visit [facility] - Neurology [facility] [address]2 [place] [address] Tasha Aranda, EVENT SPECIALIST PRODUCT DEMONSTRATOR, FIRE PREVENTION CAPTAIN [address]2 [place] [address] 06/17/2025 8:20 AM CDT Office Visit [facility] Medical [facility] - Family Medicine [facility] [address]2 [place] [address] Aide Andre, DO [address] [address] documented as of this encounter Visit Diagnoses Diagnosis Neck pain, acute Cervicalgia documented in this encounter Additional Health Concerns Infection Onset Date Last Indicated Resolved Time COVID - 19 06/19/2021 06/19/2021 07/09/2021 12:1 6 AM LAND SURVEYOR ASSISTANT COVID - 19 07/15/2022 07/15/2022 07/25/2022 12:1 6 AM LAND SURVEYOR ASSISTANT COVID - 19 05/11/2024 05/11/2024 05/11/2024 3:23 PM CDT Respiratory Rule-Out 05/11/2024 05/11/2024 024 3:23 PM CDT Assessment Noted Time PHQ-9 Depression Total Score: 0 11/08/19 21 2:00 PM CDT documented as of this encounter Care Teams Cloth Boil Off Machine Operator Relationship Specialty Start Date End Date Alejandro Edouard MD PCP - General Family Medicine 09/28/18 05/03/24 Aide Andre DO [address] [address] PCP - General Family Medicine 05/05/24 Tasha Aranda APRN, FIRE PREVENTION CAPTAIN [address]2 [place] [address] Nurse Practitioner Advanced Practice Nurse 06/19/22 05/03/24 Tasha Aranda APRN, FIRE PREVENTION CAPTAIN [address] [place] [address] Nurse Practitioner Advanced Practice Nurse 05/06/24 Cara Royal, [place] Registered Nurse 12/13/24 Simone Blue MD #[address] [address] Consulting Physician Colon and Rectal Surgery 01/06/25 documented as of this encounter
--- OUTSIDE RECORDS SUMMARY | 2025-05-24 12:55 | XMS_ITS | Encounter Summary ---
Author Organization [facility] Address [address] [facility] [place] [address] Phone Care Team Providers Care Wire Stripper Name Role Phone Alejandro Edouard MD Primary Care Provider [phone] Tasha Aranda APRN, PAVER LAYER Unavailable [phone] Aide Andre DO Primary Care Provider Tasha Aranda APRN, PAVER LAYER Unavailable [phone]- [phone] Cara Royal RN Unavailable Unavailable Simone Blue MD Unavailable Reason for Visit * Reason Comments Medication Refill Encounter Details Date Type Department Care Team (Late st Contact Info) Description 08/14/2021 Refill [facility] Medical Group - Family Medicine [facility] [address]2 [place] [address] Alejandro Edouard MD #1 [place] [address] Medication Refill Social History Tobacco Use Types [...] Receipt confirmed by pharmacy (08/14/2021 10:36 AM SERVICER COIN MACHINES) Order Questions ?? albuterol 108 (90 Base) MCG/ACT Aerosol Solution [[id number]] 103 Status: Active Ordering user: Alejandro Edouard MD 08/14/211034 Authorized by: Alejandro Edouard MD Frequency: ??08/14/21 - Until Discontinued Released by: Alejandro Edouard MD 08/14/[address] ICER COIN MACHINES documented in this encounter Plan of Treatment Upcoming Encounters Date Type Department Care Team (Late st Contact Info) Description 06/10/2025 8:00 AM CDT Office Visit [facility] - Neurology [facility] #2 [place] [address] Tasha Aranda APRN, PAVER LAYER [address]2 [place] [address] 06/17/2025 8:20 AM CDT Office Visit [facility] [address] [place] [address] Aide Andre, 2 Patricia [facility] [facility] [place] [address] documented as of this encounter Visit Diagnoses Not on filedocumented in this encounter Additional Health Concerns Infection Onset Date Last Indicated Resolved Time COVID - 19 07/15/2022 07/15/2022 07/25/2022 12:1 6 AM SERVICER COIN MACHINES COVID - 19 05/11/2024 05/11/2024 05/11/2024 3:23 PM CDT Respiratory Rule-Out 05/11/2024 05/11/2024 024 3:23 PM CDT Assessment Noted Time PHQ-9 Depression Total Score: 0 11/08/19 21 2:00 PM CDT documented as of this encounter Care Teams Wire Stripper Relationship Specialty Start Date End Date Alejandro Edouard MD PCP - General Family Medicine 09/28/18 05/03/24 Aide Andre DO 2 [facility] [place] [address] PCP - General Family Medicine 05/05/24 Tasha Aranda APRN, PAVER LAYER [address] [place] [address] Nurse Practitioner Advanced Practice Nurse 06/19/22 05/03/24 Tasha Aranda APRN, PAVER LAYER [address] [place] [address] Nurse Practitioner Advanced Practice Nurse 05/06/24 Cara Royal RN [place] Registered Nurse 12/13/24 Simone Blue MD #[address] [address] Consulting Physician Colon and Rectal Surgery 01/06/25 documented as of this encounter
--- OUTSIDE RECORDS SUMMARY | 2025-05-24 12:55 | XMS_ITS | Encounter Summary ---
Author Organization [facility] Address [address] [place] [address] Phone Care Team Providers Care Painting Trades Worker Name Role Phone Aide Andre DO Primary Care Provider [phone] Tasha Aranda APPEALS OFFICER, SPECIAL EDUCATION CASE MANAGER Unavailable [phone] Cara Royal RN Unavailable Unavailable Simone Blue MD Unavailable Reason for Visit * Reason Onset Date Comments Advice Only 11/25/2024 Cough 11/25/2024 Laryngitis 11/25/2024 Sinus Problem 11/25/2024 Encounter Details Date Type Department Care Team (Late st Contact Info) Description 11/25/2024 Nurse Triage [facility] [address] [place] [address] Aide Andre, DO [address] [address] Advice Only; Cough; Laryngitis; Sinus Problem Social [...] often do you attend chur ch or tenriism services? 1 to 4 times per year 11/28/2024 Do you belong to any clubs o r organizations such as orthodox groups, unions, fraternal or athletic groups, [...] Total Score - Questions 1-9 0 08/18 [facility] of Occupat ional Health - [...] any time in the past 12 m [facility], were you homeless or living in a fci (including now)? No 11/28/2024 Education Answer Date [...] Assessment Author 7 11/28/2024 9:08 PM CDT [employer], System Background * Q1: How often do you have a drink containing alcohol? Answer Date of Assessment Author 2-4 times a month 11/28/2024 9:08 PM CDT Mychart , System Background * Q2: How many drinks containing alcohol do you have on a typical day when you are drinking? Answer Date of Assessment Author 5 or 6 11/28/2024 9:08 PM CDT [employer] System Background * Q3: How often do you have six or more drinks on one occasion? Answer Date of Assessment Author Weekly 11/28/2024 9:08 PM CDT [employer] System Background documented as of this encounter [...] a week and a half ago at [facility] Patient states she was in and [...] provider high priority to notify. Discussed utilizing [employer] to: discuss if they would prefer a [employer] message or phone call response Prefers a [...] Care Advice Protocols used: Cough - Acute Gps-Gvmzshznob-U-AH * Telephone Encounter - Tasha Duncan - 11/25/2024 9:03 AM CDT Symptoms: Cough, Hoarseness, Sinus Symptoms, Chest Congestion Outcome: Transfer to lead security officer queue Reason: Wheezing (high-pitched whistling sound) The caller accepted this outcome. Caller Denied: * Choked on something * Any trouble breathing through the mouth documented in this encounter Plan of Treatment Upcoming Encounters Date Type Department Care Team (Late st Contact Info) Description 06/10/2025 8:00 AM CDT Office Visit [facility] - [place] [address] [place] [address] Tasha Aranda, APPEALS OFFICER, SPECIAL EDUCATION CASE MANAGER [address]2 [place] [address] 06/17/2025 8:20 AM CDT Office Visit [facility] - Family Medicine - [place] [address] [place] [address] Aide Andre, DO [address] [address] documented as of this encounter Visit Diagnoses Not on filedocumented in this encounter Additional Health Concerns Assessment Noted Time PHQ-9 Depression Total Score: 0 09/02/19 25 2:01 PM TECHNICAL PUBLICATIONS MANAGER documented as of this encounter Care Teams Painting Trades Worker Relationship Specialty Start Date End Date Aide Andre DO 2 [facility] [address] [place] [address] PCP - General Family Medicine 05/05/24 Tasha Aranda APRN, SPECIAL EDUCATION CASE MANAGER [address] [place] [address] Nurse Practitioner Advanced Practice Nurse 05/06/24 Cara Royal, [place] Registered Nurse 12/13/24 Simone Blue MD #[address] [address] Consulting Physician Colon and Rectal Surgery 01/06/25 documented as of this encounter
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
--- OUTSIDE RECORDS SUMMARY | 2025-05-24 12:55 | XMS_ITS | Encounter Summary ---
Author Organization [facility] Address [address] [facility] [place] [address] Phone Care Team Providers Care Sorter Packer Name Role Phone Alejandro Edouard MD Primary Care Provider [phone] Tasha Aranda APRN, ANESTHESIOLOGY FACULTY Unavailable [phone] Aide Andre DO Primary Care Provider Tasha Aranda APRN, ANESTHESIOLOGY FACULTY Unavailable [phone]- [phone] Cara Royal RN Unavailable Unavailable Simone Blue MD Unavailable Reason for Visit * Reason Comments Medication Refill Encounter Details Date Type Department Care Team (Late st Contact Info) Description 09/06/2021 Refill [facility] Medical Group - Family Medicine [facility] #2 [place] [address] Alejandro Edouard MD #1 [place] [address] Medication Refill Social History Tobacco Use Types [...] Dept 06/19/21 Office Visit Zhanna Campos APRN, CUTTER OUT [facility] 05/21/21 Office Visit Alejandro Edouard MD [...] 05/14/2021 37.0 36.0 - 47.0 % Final TROMECHANICAL TECHNOLOGIST documented in this encounter Plan of Treatment Upcoming Encounters Date Type Department Care Team (Late st Contact Info) Description 06/10/2025 8:00 AM CDT Office Visit [facility] - Neurology - [place] #2 [place] [address] Tasha Aranda, GEARCASE ASSEMBLER, ANESTHESIOLOGY FACULTY #2 [place] [address] 06/17/2025 8:20 AM CDT Office Visit [facility] Medical [facility] - Family Medicine - [place] #2 [place] [address] Aide Andre, DO [address] [address] documented as of this encounter Visit Diagnoses Diagnosis Neck pain, acute Cervicalgia documented in this encounter Additional Health Concerns Infection Onset Date Last Indicated Resolved Time COVID - 19 07/15/2022 07/15/2022 07/25/2022 12:1 6 AM ELECTROMECHANICAL TECHNOLOGIST COVID - 19 05/11/2024 05/11/2024 05/11/2024 3:23 PM CDT Respiratory Rule-Out 05/11/2024 05/11/2024 024 3:23 PM CDT Assessment Noted Time PHQ-9 Depression Total Score: 0 11/08/19 21 2:00 PM CDT documented as of this encounter Care Teams Sorter Packer Relationship Specialty Start Date End Date Alejandro Edouard MD PCP - General Family Medicine 09/28/18 05/03/24 Aide Andre DO [address] [address] PCP - General Family Medicine 05/05/24 Tasha Aranda APRN, ANESTHESIOLOGY FACULTY #2 [place] [address] Nurse Practitioner Advanced Practice Nurse 06/19/22 05/03/24 Tasha Aranda APRN, ANESTHESIOLOGY FACULTY #2 [place] [address] Nurse Practitioner Advanced Practice Nurse 05/06/24 Cara Royal, [place] Registered Nurse 12/13/24 Simone Blue MD #[address] [address] Consulting Physician Colon and Rectal Surgery 01/06/25 documented as of this encounter
--- OUTSIDE RECORDS SUMMARY | 2025-05-24 12:55 | XMS_ITS | Encounter Summary ---
Author Organization [facility] Address [address] [facility] [place] [address] Phone Care Team Providers Care Internal Medicine Physician Name Role Phone Alejandro Edouard MD Primary Care Provider Tasha Aranda APRN, FIBERGLASS BOAT BUILDER Unavailable [phone] Aide Andre DO Primary Care Provider [phone] Tasha Aranda APRN, FIBERGLASS BOAT BUILDER Unavailable +- [phone] Cara Royal RN Unavailable Unavailable Simone Blue MD Unavailable Reason for Visit * Reason Comments Medication Refill Encounter Details Date Type Department Care Team (Late st Contact Info) Description 11/21/2022 Refill [facility] Medical Group - Family Medicine [facility] #2 [place] [address] Emilio Torres MD #[address] [address] Medication Refill Social History Tobacco Use Types [...] 11/05/22 Office Visit Zhanna Campos APRN, CHRISTIAN [place] 07/15/22 Office Visit Umm Pascal APRN, [...] 06/10/2025 8:00 AM CDT Office Visit [facility] - Neurology - [place] #2 [place] [address] Tasha Aranda APRN, FIBERGLASS BOAT BUILDER #2 [place] [address] 06/17/2025 8:20 AM CDT Office Visit [facility] Family Medicine - [place] #2 [place] [address] Aide Andre DO [address] [address] documented as of this encounter Visit Diagnoses Not on filedocumented in this encounter Additional Health Concerns Infection Onset Date Last Indicated Resolved Time COVID - 19 05/11/2024 05/11/2024 05/11/2024 3:23 PM CDT Respiratory Rule-Out 05/11/2024 05/11/2024 024 3:23 PM CDT Assessment Noted Time PHQ-9 Depression Total Score: 0 07/15/20 22 1:00 PM PORTFOLIO CONSULTANT documented as of this encounter Care Teams Internal Medicine Physician Relationship Specialty Start Date End Date Alejandro Edouard MD PCP - General Family Medicine 09/28/18 05/03/24 Aide Andre DO 2 [facility] [place] [address] [address] PCP - General Family Medicine 05/05/24 Tasha Aranda APRN, FIBERGLASS BOAT BUILDER #2 [place] [address] Nurse Practitioner Advanced Practice Nurse 06/19/22 05/03/24 Tasha Aranda APRN, FIBERGLASS BOAT BUILDER #2 [place] [address] Nurse Practitioner Advanced Practice Nurse 05/06/24 Cara Royal, HELEN [place] Registered Nurse 12/13/24 Simone Blue MD #[address] [address] Consulting Physician Colon and Rectal Surgery 01/06/25 documented as of this encounter
--- OUTSIDE RECORDS SUMMARY | 2025-05-24 12:55 | XMS_ITS | Encounter Summary ---
Author Organization [facility] Address [address] [facility] [place] [address] Phone Care Team Providers Care Licensed Mass Real Estate Appraiser Name Role Phone Alejandro Edouard MD Primary Care Provider [phone] Tasha Aranda APRN, APPLICATION INTEGRATION ARCHITECT Unavailable [phone] Aide Andre DO Primary Care Provider Tasha Aranda APRN, APPLICATION INTEGRATION ARCHITECT Unavailable +- [phone] Cara Royal RN Unavailable Unavailable Simone Blue MD Unavailable Reason for Visit * Reason Comments Medication Refill Encounter Details Date Type Department Care Team (Late st Contact Info) Description 10/10/2023 Refill [facility] Medical [facility] - Family Medicine [facility] #2 [place] [address] Alejandro Edouard MD #1 [place] [address] Medication Refill Social History Tobacco Use Types [...] discontinued on 05/29/2023 by Alejandro Edouard MD ERLESS GRINDER documented in this encounter Plan of Treatment Upcoming Encounters Date Type Department Care Team (Late st Contact Info) Description 06/10/2025 8:00 AM CDT Office Visit [facility] Medical Group - Neurology [facility] #2 [place] [address] Tasha Aranda APRN, APPLICATION INTEGRATION ARCHITECT #2 [place] [address] 06/17/2025 8:20 AM CDT Office Visit [facility] Medical [facility] - Family Medicine [facility] #2 [place] [address] Aide Andre, DO 2 [facility]. [address] [place] [address] documented as of this encounter Visit Diagnoses Not on filedocumented in this encounter Additional Health Concerns Infection Onset Date Last Indicated Resolved Time COVID - 19 05/11/2024 05/11/2024 05/11/2024 3:23 PM CDT Respiratory Rule-Out 05/11/2024 05/11/2024 024 3:23 PM CDT Assessment Noted Time PHQ-9 Depression Total Score: 0 07/15/20 1:00 PM CENTERLESS GRINDER documented as of this encounter Care Teams Licensed Mass Real Estate Appraiser Relationship Specialty Start Date End Date Alejandro Edouard MD PCP - General Family Medicine 09/28/18 05/03/24 Aide Andre DO [address] [address] PCP - General Family Medicine 05/05/24 Tasha Aranda APRN, APPLICATION INTEGRATION ARCHITECT #2 [place] [address] Nurse Practitioner Advanced Practice Nurse 06/19/22 05/03/24 Tasha Aranda APRN, APPLICATION INTEGRATION ARCHITECT #2 [place] [address] Nurse Practitioner Advanced Practice Nurse 05/06/24 Cara Royal, HELEN [place] Registered Nurse 12/13/24 Simone Blue MD #[address] [address] Consulting Physician Colon and Rectal Surgery 01/06/25 documented as of this encounter
--- OUTSIDE RECORDS SUMMARY | 2025-05-24 12:55 | XMS_ITS | Encounter Summary ---
Author Organization [facility] Address [address] [facility] [address] Phone Care Team Providers Care Spool Cleaner Hand Name Role Phone Alejandro Edouard MD Primary Care Provider [phone] Tasha Aranda APRN, COACH MECHANIC Unavailable [phone] Aide Andre DO Primary Care Provider [phone] Tasha Aranda APRN, COACH MECHANIC Unavailable +- [phone] Cara Royal RN Unavailable Unavailable Simone Blue MD Unavailable Reason for Visit * Reason Comments Medication Refill Encounter Details Date Type Department Care Team (Late st Contact Info) Description 12/13/2021 Refill [facility] Medical Group - Family Medicine [facility] #2 [place] [address] Alejandro Edouard MD #1 [place] [address] Medication Refill Social History Tobacco Use Types [...] [place] 06/19/21 Office Visit Zhanna Campos APRN, MANAGER MECHANICAL MAINTENANCE [facility] 05/21/21 [...] 06/10/2025 8:00 AM CDT Office Visit [facility] - Neurology - [place] #2 [place] [place] [address] Tasha Aranda APRN, COACH MECHANIC #2 [place] [address] 06/17/2025 8:20 AM CDT Office Visit [facility] Family Medicine - [place] #2 [place] [address] Aide Andre DO [address] [address] documented as of this encounter Visit Diagnoses Not on filedocumented in this encounter Additional Health Concerns Infection Onset Date Last Indicated Resolved Time COVID - 19 07/15/2022 07/15/2022 07/25/2022 12:1 6 AM GRIEVANCE COORDINATOR COVID - 19 05/11/2024 05/11/2024 05/11/2024 3:23 PM CDT Respiratory Rule-Out 05/11/2024 05/11/2024 024 3:23 PM CDT Assessment Noted Time PHQ-9 Depression Total Score: 0 11/08/19 21 2:00 PM CDT documented as of this encounter Care Teams Spool Cleaner Hand Relationship Specialty Start Date End Date Alejandro Edouard MD PCP - General Family Medicine 09/28/18 05/03/24 Aide Andre DO 2 [facility] [address] [address] PCP - General Family Medicine 05/05/24 Tasha Aranda APRN, COACH MECHANIC #2 [place] [address] Nurse Practitioner Advanced Practice Nurse 06/19/22 05/03/24 Tasha Aranda APRN, BHAVANA #2 [place] [address] Nurse Practitioner Advanced Practice Nurse 05/06/24 Cara Royal, HELEN [place] Registered Nurse 12/13/24 Simone Blue MD #[address] [address] Consulting Physician Colon and Rectal Surgery 01/06/25 documented as of this encounter
--- OUTSIDE RECORDS SUMMARY | 2025-05-24 12:55 | XMS_ITS | Encounter Summary ---
Author Organization [facility] Address [address] [facility] [place] [address] Phone Care Team Providers Care Arc Welder Name Role Phone Alejandro Edouard MD Primary Care Provider [phone] Tasha Aranda APRN, COOKIE PADDER Unavailable [phone] Aide Andre DO Primary Care Provider Tasha Aranda APRN, COOKIE PADDER Unavailable +- [phone] Cara Royal RN Unavailable Unavailable Simone Blue MD Unavailable Reason for Visit * Reason Comments Medication Refill Encounter Details Date Type Department Care Team (Late st Contact Info) Description 11/13/2021 Refill [facility] Medical Group - Family Medicine [facility] #2 [place] [address] Alejandro Edouard MD #1 [place] [address] Medication Refill Social History Tobacco Use Types [...] Dept 10/01/21 Office Visit Alejandro Edouard MD [facility] 06/19/21 Office Visit Zhanna Campos APRN, CRIMINAL COURT JUDGE [facility] 05/21/21 Office Visit Alejandro Edouard [...] [facility] - Neurology - [place] #2 [place] [address] Tasha Aranda APRN, COOKIE PADDER #2 [place] [address] 06/17/2025 8:20 AM CDT Office Visit [facility] Family Medicine - [place] #[facility] [place] [address] Aide Andre, 2 [facility] [place] [facility] [address] [place] [address] documented as of this encounter Visit Diagnoses Not on filedocumented in this encounter Additional Health Concerns Infection Onset Date Last Indicated Resolved Time COVID - 19 07/15/2022 07/15/2022 07/25/2022 12:1 6 AM BOX FINISHER COVID - 19 05/11/2024 05/11/2024 05/11/2024 3:23 PM CDT Respiratory Rule-Out 05/11/2024 05/11/2024 024 3:23 PM CDT Assessment Noted Time PHQ-9 Depression Total Score: 0 11/08/19 21 2:00 PM CDT documented as of this encounter Care Teams Arc Welder Relationship Specialty Start Date End Date Alejandro Edouard MD PCP - General Family Medicine 09/28/18 05/03/24 Aide Andre DO 2 [facility] [place] [address] [address] PCP - General Family Medicine 05/05/24 Tasha Aranda APRN, COOKIE PADDER #2 [place] [address] Nurse Practitioner Advanced Practice Nurse 06/19/22 05/03/24 Tasha Aranda APRN, COOKIE PADDER #2 [place] [address] Nurse Practitioner Advanced Practice Nurse 05/06/24 Cara Royal RN [place] Registered Nurse 12/13/24 Simone Blue MD #[address] [address] Consulting Physician Colon and Rectal Surgery 01/06/25 documented as of this encounter
--- OUTSIDE RECORDS SUMMARY | 2025-05-24 12:55 | XMS_ITS | Encounter Summary ---
Author Organization [facility] Address [address] [facility] [place] [address] Phone Care Team Providers Care Tar Heater Name Role Phone Alejandro Edouard MD Primary Care Provider [phone] Tasha Aranda APRN, CURRICULUM ASSISTANT Unavailable [phone]- [phone] Aide Andre DO Primary Care Provider Tasha Aranda APRN, CURRICULUM ASSISTANT Unavailable +- [phone] Cara Royal RN Unavailable Unavailable Simone Blue MD Unavailable Reason for Visit * Reason Comments Medication Refill Encounter Details Date Type Department Care Team (Late st Contact Info) Description 08/28/2020 [facility] [address] [place] [address] Alejandro Edouard MD #1 [place] [address] Medication Refill Social History Tobacco Use Types [...] COVID-19? No / Unsure 08/28/2020 9:12 AM ADDICTION SPECIALIST documented as of this encounter Miscellaneous Notes * Telephone Encounter - Stephanie Leyva RN - 08/28/2020 3:32 PM CST Duplicate CTION SPECIALIST documented in this encounter Plan of Treatment Upcoming Encounters Date Type Department Care Team (Late st Contact Info) Description 06/10/2025 8:00 AM CDT Office Visit [facility] Medical Group - Neurology - [place] #2 [place] [address] Tasha Aranda APRN, CURRICULUM ASSISTANT #2 [place] [address] 06/17/2025 8:20 AM CDT Office Visit [facility] Medical Group - Family Medicine - [place] #2 [place] [address] Aide Andre, DO [address] [address] documented as of this encounter Visit Diagnoses Not on filedocumented in this encounter Additional Health Concerns Infection Onset Date Last Indicated Resolved Time COVID - 19 06/19/2021 06/19/2021 07/09/2021 12:1 6 AM ADDICTION SPECIALIST COVID - 19 07/15/2022 07/15/2022 07/25/2022 12:1 6 AM ADDICTION SPECIALIST COVID - 19 05/11/2024 05/11/2024 05/11/2024 3:23 PM CDT Respiratory Rule-Out 05/11/2024 05/11/2024 024 3:23 PM CDT Assessment Noted Time PHQ-9 Depression Total Score: 0 09/22/19 20 8:00 AM ADDICTION SPECIALIST documented as of this encounter Care Teams Tar Heater Relationship Specialty Start Date End Date Alejandro Edouard MD PCP - General Family Medicine 09/28/18 05/03/24 Aide Andre DO [address] [address] PCP - General Family Medicine 05/05/24 Tasha Aranda APRN, CURRICULUM ASSISTANT #2 [place] [address] Nurse Practitioner Advanced Practice Nurse 06/19/22 05/03/24 Tasha Aranda APRN, CURRICULUM ASSISTANT #2 [place] [address] Nurse Practitioner Advanced Practice Nurse 05/06/24 Cara Royal, HELEN [place] Registered Nurse 12/13/24 Simone Blue MD #[address] [address] Consulting Physician Colon and Rectal Surgery 01/06/25 documented as of this encounter
--- OUTSIDE RECORDS SUMMARY | 2025-05-24 12:55 | XMS_ITS | Encounter Summary ---
Author Organization [facility] Address [address] [place] [address] Phone Care Team Providers Care Insurance Underwriting Assistant Name Role Phone Alejandro Edouard MD Primary Care Provider [phone] Tasha Aranda APRN, RIG BUILDER Unavailable [phone] Aide Andre DO Primary Care Provider [phone] Tasha Aranda APRN, RIG BUILDER Unavailable +- [phone] Cara Royal RN Unavailable Unavailable Simone Blue MD Unavailable Reason for Visit * Reason Comments Medication Refill Encounter Details Date Type Department Care Team (Late st Contact Info) Description 08/09/2021 Refill [facility] [address] [place] [address] Alejandro Edouard MD #1 [place] [address] Medication Refill Social History Tobacco Use Types [...] Dept 06/19/21 Office Visit Zhanna Campos APRN, STRATEGIC PLANNING CONSULTANT [facility] [place] 05/21/21 Office Visit Alejandro Edouard MD [facility] 12/29/20 Office Visit Alejandro Edouard MD [facility] 11/07/20 Office Visit Alejandro Edouard MD [facility] Showing recent visits within past [...] Dept 06/19/21 Office Visit Zhanna Campos APRN, STRATEGIC PLANNING CONSULTANT [facility] 05/21/21 Office Visit Alejandro Edouard MD [facility] 12/29/20 Office Visit Alejandro Edouard MD [facility] 11/07/20 Office Visit Alejandro Edouard MD [facility] [place] Showing recent visits within past 365 [...] Dept 06/19/21 Office Visit Zhanna Campos APRN, STRATEGIC PLANNING CONSULTANT [facility] 05/21/21 Office Visit Alejandro Edouard [...] Dept 06/19/21 Office Visit Zhanna Campos APRN, STRATEGIC PLANNING CONSULTANT [facility] 05/21/21 Office Visit Alejandro dEouard MD [facility] 12/29/20 Office Visit Alejandro [...] Dept 06/19/21 Office Visit Zhanna Campos APRN, STRATEGIC PLANNING CONSULTANT [facility] 05/21/21 Office Visit Alejandro Edouard MD [facility] 12/29/20 Office Visit Alejandro Edouard MD [facility] 11/07/20 Office Visit [facility] within past 365 days and meeting all other requirements Future Appointments No visits were found meeting these conditions. Showing future appointments within next 90 days and meeting all other requirements L PARTS SHAPER OPERATOR documented in this encounter Plan of Treatment Upcoming Encounters Date Type Department Care Team (Late st Contact Info) Description 06/10/2025 8:00 AM CDT Office Visit [facility] - Neurology - [place] #2 [place] [address] Tasha Aranda APRN, RIG BUILDER #2 [place] [address] 06/17/2025 8:20 AM CDT Office Visit [facility] Medical [facility] - Family Medicine - [place] #2 [place] [address] Aide Andre, DO [address] [address] documented as of this encounter Visit Diagnoses Not on filedocumented in this encounter Additional Health Concerns Infection Onset Date Last Indicated Resolved Time COVID - 19 07/15/2022 07/15/2022 07/25/2022 12:1 6 AM SMALL PARTS SHAPER OPERATOR COVID - 19 05/11/2024 05/11/2024 05/11/2024 3:23 PM CDT Respiratory Rule-Out 05/11/2024 05/11/2024 024 3:23 PM CDT Assessment Noted Time PHQ-9 Depression Total Score: 0 11/08/19 21 2:00 PM CDT documented as of this encounter Care Teams Insurance Underwriting Assistant Relationship Specialty Start Date End Date Alejandro Edouard MD PCP - General Family Medicine 09/28/18 05/03/24 Aide Andre DO [address] [address] PCP - General Family Medicine 05/05/24 Tasha Aranda APRN, RIG BUILDER #2 [place] [address] Nurse Practitioner Advanced Practice Nurse 06/19/22 05/03/24 Tasha Aranda APRN, RIG BUILDER #2 [place] [address] Nurse Practitioner Advanced Practice Nurse 05/06/24 Cara Royal, RN [place] Registered Nurse 12/13/24 Simone Blue MD #[address] [address] Consulting Physician Colon and Rectal Surgery 01/06/25 documented as of this encounter
== END 2025-05-24 12:05 | disposition home or self-care (01) ==
PROVIDERS: Emergency Provider Nurse Practitioner; PCP Student in an Organized Health Care Education/Training Program
DX: H66.92 Otitis media, unspecified, left ear (principal); H60.92 Unspecified otitis externa, left ear; I10 Essential (primary) hypertension
CPT/HCPCS: 99213; G0463